=== PATIENT | female | born 1955 | race Caucasian/White ===

== ENCOUNTER → 2020-11-28 13:28 | Outpatient (CLI) | payer MEDICARE, OTHER, SELFPAY | PROVIDERS: PCP Family Medicine; Visit Provider Nurse Practitioner | DX: N34.3 Urethral syndrome, unspecified (principal) | CPT/HCPCS: 87086 ==

== ENCOUNTER 2020-11-28 14:19 | Emergency (ER) | payer MEDICARE, OTHER, SELFPAY ==
[2020-11-28 14:28] VITALS: BP 139/78; PULSE 89; RESP 22; TEMP 37.2; O2SAT 97
--- NOTE | 2020-11-28 15:02 | DI.CT.S_ITS ---
PROCEDURE: CT ABDOMEN PELVIS W CON INDICATIONS: Left-sided abdominal pain eval for diverticulitis TECHNIQUE: After the administration of intravenous contrast, 5 mm thick sections acquired from the diaphragm to the symphysis. 5 mm coronal and sagittal reformats were acquired. For radiation dose reduction, the following was used: automated exposure control, adjustment of mA and/or kV according to patient size. COMPARISON: None. FINDINGS: Image quality: Excellent. ABDOMEN: Lung bases: Lung bases are clear. Heart size is normal. Solid organs: Liver is normal in size and enhancement. Gallbladder appears normal. Biliary system is non dilated. Pancreas enhances normally. Spleen is normal in size and enhancement. No adrenal nodules. Kidneys demonstrate normal size and enhancement, without hydronephrosis. Peritoneum and bowel: Bowel loops demonstrate normal wall thickness and caliber. No free fluid or air. Nodes and vessels: No retroperitoneal or mesenteric adenopathy by size criteria. Aorta and inferior vena cava are normal in size. Miscellaneous: No ventral hernias. PELVIS: Genitourinary: Bladder wall thickness is normal. Miscellaneous: No inguinal hernias or adenopathy. Bones: No suspicious bony lesions. No vertebral body compression fractures. IMPRESSION: Source of left-sided asymmetric pain is not identified. An area of diverticulitis or colitis is not found. No abnormal free fluid is seen throughout the peritoneal space. No acute disease is found. Dictated by: Nando Coates M.D. on 11/28/2020 at 16:41 Approved by: Nando Coates M.D. on 11/28/2020 at 16:43
--- NOTE | 2020-11-28 15:13 | ED_ITS ---
HPI - General Adult General Chief complaint: Abdominal Pain Stated complaint: TENDERNESS LEFT SIDE Time Seen by Provider: 11/28/20 15:01 Source: patient Mode of arrival: Ambulatory Limitations: no limitations History of Present Illness HPI narrative: Patient is a 65-year-old female who stated that she does have a history of diverticulosis. This was diagnosed off of a colonoscopy in 2019. She states that over the past couple years she has had small intermittent episodes of left-sided abdominal pain that have all resolved on their own. She has another episode of that today which started approximately 3 days ago. No urinary symptoms. No diarrhea constipation. No nausea vomiting. No fevers. She went to the walk-in clinic and after their evaluation they were concerned about diverticulitis. According to that provider they offered to treat with antibiotics with the presumed diagnosis of diverticulitis however the patient did not want antibiotics without a confirmed diagnosis. She was sent here to the emergency department for a CT scan. Related Data Allergies Allergy/AdvReac Type Severity Reaction Status Date / Time Sulfa (Sulfonamide Allergy Mild Other Verified 11/28/20 13:46 Antibiotics) Review of Systems Constitutional Constitutional: Denies fever(s) Cardiovascular Cardiovascular: Denies chest pain and Denies dyspnea Respiratory Respiratory: Denies dyspnea Gastrointestinal Gastrointestinal: Reports abdominal pain, Denies change in bowel habits, Denies nausea and Denies vomiting Genitourinary Genitourinary: Denies dysuria Genitourinary: Denies dysuria Musculoskeletal Musculoskeletal: Denies arthralgias and Denies myalgias Integumentary/Breasts Skin/Breast: Denies rash Neurologic Neurologic: Denies behavioral changes Psychiatric Psychiatric: Denies behavioral changes Hematologic/Lymphatic On Anticoagulants: No Allergic/Immunologic Allergic/Immunologic: Denies urticaria Patient History Medical History Back pain (~2008) Chicken pox (~1963) Difficulty swallowing (~2006) Eczema Glaucoma Hemorrhoid (~1980) History of UTI (~1975) Measles Painful menstrual periods Positive colorectal cancer screening using Cologuard test Right arm fracture (~2015) Rubella Sciatica Thumb pain (~2015) Tinnitus Vertigo Vision disorder White coat syndrome without hypertension (~1996) Surgical History Anesthesia History of appendectomy History of section (~1980) History of tonsillectomy and adenoidectomy Family History Father Age: 92 Myeloma Cancer History of heart disease Hypertension Hyperlipidemia TIA (transient ischemic attack) Mother PSP (progressive supranuclear palsy) Osteoporosis Hip fracture Brother Hyperlipidemia Brother Hyperlipidemia Grandmother No problems noted. Grandfather No problems noted. Grandmother Dementia Alzheimer's disease Social History marital status: number of children: 2 household members: spouse lives independently: Yes housing: house pets and animals: No education level: master's degree occupational status: previously employed (teacher) Smoking Status: Never smoker alcohol intake: current (once in a blue moom) substance use type: does not use during the past year weight has: remained stable well-balanced diet: daily or most days Type(s) of exercise: walking, weight lifting and yoga Smoking Status: Never smoker Exam Initial Vital Signs Initial Vital Signs: Vital Signs Temperature 98.9 F 11/28/20 14:28 Pulse Rate 89 11/28/20 14:28 Respiratory Rate 22 11/28/20 14:28 Blood Pressure 139/78 11/28/20 14:28 Pulse Oximetry 97 11/28/20 14:28 Const General: cooperative, comfortable and well developed Limitations: mental status not altered HENMT Head: normal to inspection and normocephalic Resp Effort & Inspection: normal respiratory effort Cardio Rate: regular rate GI Inspection: non-distended Skin Lesions: no lesions Rashes: no rashes Neuro General: patient alert and patient awake Cognition: normal cognition Speech: speech normal Extrem General: capillary refill normal Psych Appearance: grossly normal and well kempt Course Orders Ordered: ED Orders 11/28/20 15:02 CT abdomen pelvis w con Stat 11/28/20 15:21 Complete Blood Count AUTO DIFF Stat Comprehensive Metabolic Panel Stat Lipase Stat Vital Signs Vital signs: Vital Signs - 8 hr 11/28/20 14:28 11/28/20 17:15 Temperature 98.9 F Pulse Rate 89 89 Respiratory Rate 22 16 Blood Pressure 139/78 153/84 H Pulse Oximetry 97 99 Medical Decision Making Medical Records Medical records reviewed: Yes I reviewed the patient's medical records. Lab Data Lab results reviewed: Yes I reviewed the patient's lab results. Result diagrams: 11/28/20 15:21 11/28/20 15:21 Labs: Lab Results 11/28/20 11/28/20 Range/Units 15:21 15:21 WBC 15.9 H (4.5-11.0) X10^3/uL RBC 4.32 (4.0-5.2) X10^6/uL Hgb 13.6 (12.0-16.0) g/dL Hct 40.0 (36-46) % MCV 92.6 (80-100) fL MCH 31.5 (26-34) PG MCHC 34.0 (30-36) % RDW 13.0 (11.6-14.8) % Plt Count 221 (150-400) X10^3/uL Neut % (Auto) 90.7 H (50-75) % Lymph % (Auto) 2.9 L (25-40) % [place] % (Auto) 6.3 (3-14) % Eos % (Auto) 0.0 L (2-4) % Baso % (Auto) 0.1 (0-2) % Neut # (Auto) 36029 H (6321-0570) /uL Lymph # (Auto) 500 L (7183-4027) /uL [place] # (Auto) 1000 H (0-900) /uL Eos # (Auto) 0 (0-450) /uL Baso # (Auto) 0 (0-100) /uL Sodium 129 L (137-145) mmol/L Potassium 3.8 (3.4-5.1) mmol/L Chloride 99 (98-107) mmol/L Carbon Dioxide 24 (22-32) mmol/L BUN 13 (7-17) mg/dL Creatinine 0.81 (0.52-1.04) mg/dL Estimated GFR > 60.0 (>60) mL/min BUN/Creatinine Ratio 16.0 (6-22) Glucose 125 H (80-110) mg/dL Calcium 9.7 (8.4-10.2) mg/dL Total Bilirubin 0.7 (0.2-1.3) mg/dL AST 29 (14-36) IU/L ALT 19 (<35) IU/L Alkaline Phosphatase 92 (38-126) U/L Total Protein 7.1 (6.3-8.2) g/dL Albumin 4.2 (3.5-5.0) g/dL Globulin 2.9 (1.7-4.1) g/dL Albumin/Globulin Ratio 1.4 (1.0-2.8) Lipase 46 (23-300) U/L Imaging Data CT scan - abdomen/pelvis: Radiologist's Impression: [address] [id number] Scan ReportSigned Patient: Aracelis Carballo KMR#: [id number]: 4Acct:[id number]/Sex: 65 / FDate of Service: 11/28/20Loc: EDAccession Number: [id number] Procedure: CT abdomen pelvis w con Ordering Provider: Jorge Magallon D.O. PROCEDURE: CT ABDOMEN PELVIS W CON INDICATIONS: Left-sided abdominal pain eval for diverticulitis TECHNIQUE: After the administration of intravenous contrast, 5 mm thick sections acquired from the diaphragm to the symphysis. 5 mm coronal and sagittal reformats were acquired. For radiation dose reduction, the following was used: automated exposure control, adjustment of mA and/or kV according to patient size. COMPARISON: None. FINDINGS: Image quality: Excellent. ABDOMEN: Lung bases: Lung bases are clear. Heart size is normal. Solid organs: Liver is normal in size and enhancement. Gallbladder appears normal. Biliary system is non dilated. Pancreas enhances normally. Spleen is normal in size and enhancement. No adrenal nodules. Kidneys demonstrate normal size and enhancement, without hydronephrosis. Peritoneum and bowel: Bowel loops demonstrate normal wall thickness and caliber. No free fluid or air. Nodes and vessels: No retroperitoneal or mesenteric adenopathy by size criteria. Aorta and inferior vena cava are normal in size. Miscellaneous: No ventral hernias. PELVIS: Genitourinary: Bladder wall thickness is normal. Miscellaneous: No inguinal hernias or adenopathy. Bones: No suspicious bony lesions. No vertebral body compression fractures. IMPRESSION: Source of left-sided asymmetric pain is not identified. An area of diverticulitis or colitis is not found. No abnormal free fluid is seen throughout the peritoneal space. No acute disease is found. Dictated by: Nando Coates M.D. on 11/28/2020 at 16:41 Approved by: Nando Coates M.D. on 11/28/2020 at 16:43 MDM Narrative Medical decision making narrative: Patient is afebrile. Urinalysis from the walk-in clinic is unremarkable. She does have a leukocytosis however no signs of an infection. She does not have any indication for urinary tract infection. Her CT scan is not consistent with diverticulitis or other intra-abdominal pathology. She has no skin changes concerning for a viral infection or bacterial infection. She has no cough. No shortness of breath. Low suspicion for pneumonia. Also has no upper respiratory tract infection like symptoms. Had a long discussion with her regarding the symptoms. We acknowledge that she does have leukocytosis however we will hold on any antibiotics for now. She expressed understanding and agreement with this. I did discuss the CT scan with her and she expressed understanding that there was no signs of diverticulitis. She was given return precautions and follow-up instructions. She expressed understanding and agreement. Discharge Plan Departure Patient Disposition: Home Clinical Impression: Abdominal pain, Leukocytosis Instructions: DI for Abdominal Pain-Adult Activity Restrictions/Additional Instructions: The CT scan of your abdomen and pelvis today is unremarkable for any surgical or infectious issues. This includes issues with your bowel and bladder. You do have an elevated white blood cell count however we do not have any specific sources of an infection. I feel we should hold on any antibiotics for now. Contact your primary provider for follow-up. Return to the emergency department for any new or worsening symptoms Referrals: Angeles Mcarthur DO [Primary Care Provider] -
[2020-11-28 15:43] LABS: Add Manual Diff / Slide Review NO; Basophils Absolute Auto 0 /uL (0-100); Basophils Percent Auto 0.1 % (0-2); Eosinophils Absolute Auto 0 /uL (0-450); Hemoglobin 13.6 g/dL (12.0-16.0); Lymphocytes Absolute Auto 500 /uL (1100-4500); Lymphocytes Percent Auto 2.9 % (25-40); Mean Corpuscular Hemoglobin 31.5 PG (26-34); Mean Corpuscular Volume 92.6 fL (80-100); Monocytes Absolute Auto 1000 /uL (0-900); Monocytes Percent Auto 6.3 % (3-14); Neutrophils Absolute Auto 14400 /uL (1500-7000); Neutrophils Percent Auto 90.7 % (50-75); Platelet Count 221 X10^3/uL (150-400); Red Blood Cell Count 4.32 X10^6/uL (4.0-5.2); White Blood Cell Count 15.9 X10^3/uL (4.5-11.0)
[2020-11-28 15:56] LABS: Alanine Aminotransferase 19 IU/L (<35); Albumin 4.2 g/dL (3.5-5.0); Albumin Globulin Ratio 1.4 (1.0-2.8); Alkaline Phosphatase 92 U/L (38-126); Aspartate Aminotransferase 29 IU/L (14-36); Bilirubin Total 0.7 mg/dL (0.2-1.3); Blood Urea Nitrogen 13 mg/dL (7-17); Calcium 9.7 mg/dL (8.4-10.2); Carbon Dioxide 24 mmol/L (22-32); Chloride 99 mmol/L (98-107); Estimated Glomerular Filt Rate > 60.0 mL/min (>60); Globulin 2.9 g/dL (1.7-4.1); Glucose 125 mg/dL (80-110); HEMOLYSIS < 15 (0-50); Lipase 46 U/L (23-300); Potassium 3.8 mmol/L (3.4-5.1); Sodium 129 mmol/L (137-145); Total Protein 7.1 g/dL (6.3-8.2)
[2020-11-28 17:15] VITALS: BP 153/84; PULSE 89; RESP 16; O2SAT 99
== END 2020-11-28 17:15 | disposition home or self-care (01) ==
PROVIDERS: Emergency Provider Emergency Medicine; PCP Family Medicine
DX: R10.9 Unspecified abdominal pain (principal); D72.829 Elevated white blood cell count, unspecified; Z87.19 Personal history of other diseases of the digestive system; N34.3 Urethral syndrome, unspecified
CPT/HCPCS: 36415; 74177; 80053; 83690; 85025; 87086; 99284

== ENCOUNTER → 2020-12-01 12:02 | Outpatient (CLI) | payer MEDICARE, OTHER, SELFPAY | PROVIDERS: PCP Family Medicine; Referring Provider Family Medicine; Visit Provider Family Medicine | DX: R10.9 Unspecified abdominal pain (principal) | CPT/HCPCS: 87086 ==

== ENCOUNTER → 2021-01-29 07:06 | Outpatient (CLI) | payer MEDICARE, OTHER, SELFPAY ==
[2021-01-29 08:33] LABS: Alanine Aminotransferase 16 IU/L (<35); Albumin 4.2 g/dL (3.5-5.0); Albumin Globulin Ratio 1.6 (1.0-2.8); Alkaline Phosphatase 90 U/L (38-126); Aspartate Aminotransferase 26 IU/L (14-36); BUN Creatinine Ratio 20.7 (6-22); Bilirubin Total 0.3 mg/dL (0.2-1.3); Blood Urea Nitrogen 17 mg/dL (7-17); Calcium 10.5 mg/dL (8.4-10.2); Carbon Dioxide 27 mmol/L (22-32); Chloride 102 mmol/L (98-107); Cholesterol 185 mg/dL (140-199); Estimated Glomerular Filt Rate > 60.0 mL/min (>60); Globulin 2.7 g/dL (1.7-4.1); Glucose 100 mg/dL (80-110); HDL Cholesterol 89 mg/dL (40-60); HEMOLYSIS < 15 (0-50); LDL Cholesterol Calculated 82 mg/dL (<100); Potassium 4.3 mmol/L (3.4-5.1); Sodium 135 mmol/L (137-145); Total Protein 6.9 g/dL (6.3-8.2); Triglycerides 71 mg/dL (35-150)
[2021-01-30 16:55] LABS: Vitamin D 25 Hydroxy (D3) 35.3 ng/mL (30.0-100.0)
== END ==
PROVIDERS: PCP Family Medicine; Referring Provider Family Medicine; Visit Provider Family Medicine
DX: Z13.220 Encounter for screening for lipoid disorders (principal); Z13.1 Encounter for screening for diabetes mellitus; M85.80 Other specified disorders of bone density and structure, unspecified site; I10 Essential (primary) hypertension
CPT/HCPCS: 36415; 80053; 80061; 82306

== ENCOUNTER → 2021-01-31 15:13 | Outpatient (CLI) | payer MEDICARE, OTHER, SELFPAY ==
[2021-01-31 16:03] LABS: Add Manual Diff / Slide Review NO; Basophils Absolute Auto 100 /uL (0-100); Basophils Percent Auto 0.9 % (0-2); Eosinophils Absolute Auto 200 /uL (0-450); Eosinophils Percent Auto 2.8 % (2-4); Hematocrit 40.1 % (36-46); Hemoglobin 13.6 g/dL (12.0-16.0); Lymphocytes Absolute Auto 2000 /uL (1100-4500); Lymphocytes Percent Auto 23.7 % (25-40); Mean Corpuscular HGB Conc 33.9 % (30-36); Mean Corpuscular Hemoglobin 31.5 PG (26-34); Mean Corpuscular Volume 92.9 fL (80-100); Monocytes Absolute Auto 900 /uL (0-900); Monocytes Percent Auto 10.3 % (3-14); Neutrophils Absolute Auto 5300 /uL (1500-7000); Neutrophils Percent Auto 62.3 % (50-75); Platelet Count 229 X10^3/uL (150-400); Red Blood Cell Count 4.31 X10^6/uL (4.0-5.2); Red Cell Distribution Width 13.7 % (11.6-14.8); White Blood Cell Count 8.6 X10^3/uL (4.5-11.0)
[2021-02-01 07:56] LABS: Calcium 9.6 mg/dL (8.7-10.3); Parathyroid Hormone, Intact 62 pg/mL (15-65)
== END ==
PROVIDERS: PCP Family Medicine; Referring Provider Family Medicine; Visit Provider Family Medicine
DX: E83.52 Hypercalcemia (principal); D72.829 Elevated white blood cell count, unspecified
CPT/HCPCS: 36415; 82310; 83970; 85025

== ENCOUNTER → 2021-02-21 08:27 | Outpatient (CLI) | payer MEDICARE, OTHER, SELFPAY ==
--- NOTE | 2021-02-21 08:29 | DI.MG.S_ITS ---
BILATERAL DIGITAL SCREENING MAMMOGRAM 3D/2D WITH CAD: 02/21/2021 CLINICAL: Routine screening. Comparison is made to exams dated: 05/19/2019 mammogram, 04/03/2017 mammogram, and 10/04/2014 mammogram - [facility]. There are scattered fibroglandular elements in both breasts. Current study was also evaluated with a Computer Aided Detection (CAD) system. No significant masses, calcifications, or other findings are seen in either breast. There has been no significant interval change. IMPRESSION: NEGATIVE There is no mammographic evidence of malignancy. A 1 year screening mammogram is recommended. This exam was interpreted at Station ID: [id number]. NOTE: For mammograms, a report in lay terms will be sent to the patient. Approximately 15% of breast malignancies will not be visualized mammographically. In the management of a palpable breast mass, a negative mammogram must not discourage biopsy of a clinically suspicious lesion. Electronically Signed By: Panda hercules/sapna:02/21/2021 10:28:51 letter sent: Normal Exam ACR BI-RADS Category 1: Negative 3341F
== END ==
PROVIDERS: PCP Family Medicine; Referring Provider Family Medicine; Visit Provider Family Medicine
DX: Z12.31 Encounter for screening mammogram for malignant neoplasm of breast (principal)
CPT/HCPCS: 77063; 77067

== ENCOUNTER → 2021-08-27 09:40 | Outpatient (CLI) | payer MEDICARE, OTHER, SELFPAY | PROVIDERS: PCP Family Medicine; Referring Provider Family Medicine; Visit Provider Family Medicine | DX: Z78.0 Asymptomatic menopausal state (principal); M85.852 Other specified disorders of bone density and structure, left thigh; Z82.62 Family history of osteoporosis | CPT/HCPCS: 77080 ==

== ENCOUNTER → 2022-02-20 07:41 | Outpatient (CLI) | payer MEDICARE, OTHER, SELFPAY ==
[2022-02-20 08:33] LABS: Add Manual Diff / Slide Review NO; Basophils Absolute Auto 100 /uL (0-100); Eosinophils Absolute Auto 200 /uL (0-450); Eosinophils Percent Auto 4.3 % (2-4); Hematocrit 40.3 % (36-46); Hemoglobin 13.6 g/dL (12.0-16.0); Lymphocytes Absolute Auto 1700 /uL (1100-4500); Lymphocytes Percent Auto 30.2 % (25-40); Mean Corpuscular HGB Conc 33.8 % (30-36); Mean Corpuscular Hemoglobin 30.5 PG (26-34); Mean Corpuscular Volume 90.3 fL (80-100); Monocytes Absolute Auto 600 /uL (0-900); Monocytes Percent Auto 11.8 % (3-14); Neutrophils Absolute Auto 2900 /uL (1500-7000); Neutrophils Percent Auto 52.7 % (50-75); Platelet Count 216 X10^3/uL (150-400); Red Blood Cell Count 4.47 X10^6/uL (4.0-5.2); Red Cell Distribution Width 14.1 % (11.6-14.8); White Blood Cell Count 5.5 X10^3/uL (4.5-11.0)
[2022-02-20 09:21] LABS: Alanine Aminotransferase 17 IU/L (<35); Albumin 4.3 g/dL (3.5-5.0); Albumin Globulin Ratio 1.6 (1.0-2.8); Alkaline Phosphatase 89 U/L (38-126); Aspartate Aminotransferase 26 IU/L (14-36); BUN Creatinine Ratio 18.8 (6-22); Bilirubin Total 0.5 mg/dL (0.2-1.3); Blood Urea Nitrogen 16 mg/dL (7-17); Calcium 9.6 mg/dL (8.4-10.2); Carbon Dioxide 27 mmol/L (22-32); Chloride 103 mmol/L (98-107); Cholesterol 201 mg/dL (140-199); Estimated Glomerular Filt Rate > 60 mL/min (>60); Globulin 2.7 g/dL (1.7-4.1); Glucose 94 mg/dL (80-110); HDL Cholesterol 109 mg/dL (40-60); HEMOLYSIS < 15 (0-50); LDL Cholesterol Calculated 76 mg/dL (<100); Potassium 4.2 mmol/L (3.4-5.1); Sodium 136 mmol/L (137-145); Triglycerides 82 mg/dL (35-150)
[2022-02-20 10:25] LABS: Appearance Urine UA CLEAR; Bilirubin Urine UA NEGATIVE (NEGATIVE); Color Urine UA YELLOW; Glucose Urine UA NEGATIVE (Negative); Ketones Urine UA NEGATIVE (NEGATIVE); Leukocyte Esterase Urine UA NEGATIVE (NEGATIVE); Nitrite Urine UA NEGATIVE (Negative); Occult Blood Urine UA NEGATIVE (Negative); Protein Urine UA NEGATIVE (Negative); Urobilinogen Urine UA 0.2 E.U./dL (0.2)
[2022-02-20 10:32] LABS: pH Urine UA 7.5 (4.5-8.0)
[2022-02-20 10:48] LABS: Creatinine Urine Random 110.2 mg/dL
[2022-02-20 11:00] LABS: Microalbumin Urine Random < 0.6 mg/dL (0-1.6)
[2022-02-20 11:02] LABS: Bacteria Urine None Seen; Culture Indicated Urine Cult Not Indicated; RBC Urine None Seen (0-5/HPF); Squamous Epithelial Cell Urine 0-1 /HPF (0-5/HPF); WBC Urine None Seen (0-5/HPF)
== END ==
PROVIDERS: PCP Family Medicine; Referring Provider Family Medicine; Visit Provider Family Medicine
DX: I10 Essential (primary) hypertension (principal); E83.52 Hypercalcemia; R30.0 Dysuria; Z00.00 Encounter for general adult medical examination without abnormal findings; Z13.220 Encounter for screening for lipoid disorders; R03.0 Elevated blood-pressure reading, without diagnosis of hypertension
CPT/HCPCS: 36415; 80053; 80061; 81001; 82043; 82306; 82570; 85025

== ENCOUNTER → 2022-04-11 10:50 | Outpatient (CLI) | payer MEDICARE, OTHER, SELFPAY ==
--- NOTE | 2022-04-11 10:55 | DIET.CONS ---
Dietary Consultation Note Assessment: 67y F attending [address] visit for nutrition therapy to support osteopenia and HTN. Pt with osteopenia concerned because she has difficulty taking calcium supplements and eats a mostly plant based diet. Pt took my Osteoporosis nutrition class and desires individualized support. Pt cooks all homemade foods, no processed foods, little to no added sodium in diet. Pt is 15-45# over UBW which can influence HTN. Ht: 5'9 Wt: 165# BMI: 24.5 UBW: 120# until 40s then 150# does not tolerate calcium tablets Current Supplements: Vitamin D 2,000IU Cardiotone magnesium 200mg Occasional Supplements: AlgaeCal Per 2 capsules (4 daily) Vit C 25mg Vit D 800IU Calcium 360mg Mg 175mg [place] 1.5mg Vit K 50mcg Strontium 680mg Collagen Peptides Usual Day: 16oz water tea c milk (4x/d) B: 3/4 c oat groats- flax, prune, walnut or two, collagen, supps, 1/3c whole milk yogurt, blueberries L: broth based soup c chicken or fish and mix of starchy and non starchy veg. D: salad, cooked veg, small portion protein Sn: whole milk yogurt c fruit and 2-3 nuts Exercise: walking plus weights and pilates Nutrition Diagnosis: nutrition related knowledge deficit r/t diet to support osteopenia and HTN aeb pt presents with slow weight gain, HTN, pt brings several supplements and food log to visit, expresses being unsure on what is good plan, pt DEXA showing osteopenia. Interventions: 1. Discussed pt maintaining BMI 23 for good health, Losing 10# to support HTN but also not going lower to support bone health. 2. Reviewed supplements- pt to take 1,000IU Vitamin D, 2 AlgaeCal, occasional collagen peptides. 3. Reviewed pt diet record, no changes besides to count calories of usual B/L/D/Sn to aim for 1500 calories per day to support 10# weight loss. EER: 1200mg calcium daily from mix of food and supps, 2,000IU Vitamin D (between single nutrient and Algaecal), 1500kcals Monitoring/Evaluations: f/u prn Electronically Signed by: Lina Wolfe 04/11/22 10:55 Clinical Dietitian [address] [id number]
[2022-04-11 11:24] VITALS: BMI 24.5
== END ==
PROVIDERS: PCP Family Medicine; Referring Provider Family Medicine; Visit Provider Family Medicine
DX: M85.80 Other specified disorders of bone density and structure, unspecified site (principal); I10 Essential (primary) hypertension; Z68.24 Body mass index [BMI] 24.0-24.9, adult; Z71.3 Dietary counseling and surveillance
CPT/HCPCS: 97802

== ENCOUNTER → 2022-08-12 09:17 | Outpatient (CLI) | payer MEDICARE, OTHER, SELFPAY ==
[2022-08-12 09:42] LABS: COVID19 -Nasal RAPID Negative (Negative)
== END ==
PROVIDERS: PCP Family Medicine; Visit Provider Surgery
DX: Z20.822 Contact with and (suspected) exposure to COVID-19 (principal); Z01.812 Encounter for preprocedural laboratory examination
CPT/HCPCS: 87635; C9803

== ENCOUNTER 2022-08-13 06:37 | Day surgery (SDC) | payer MEDICARE, OTHER, SELFPAY ==
[2022-08-13] VITALS (7 sets, daily range): BP systolic 113–156; BP diastolic 67–94; PULSE 52–65; RESP 10–18; TEMP 36.3–36.4; O2SAT 95–99; BMI 24.3
--- NOTE | 2022-08-13 | PATH_ITS ---
[facility] Accession Number: [id number] . 01 Material submitted: . sigmoid colon - SIGMOID POLYP . 01 Diagnosis: Sigmoid Colon, Polyp, Biopsy: Polypoid granulation tissue consistent with inflammatory polyp. Negative for dysplasia and malignancy. MRV 08/16/2022 1021 Local . 01 Electronically signed: . Liliam Muñoz MD, Pathologist NPI- [id number] . 01 Gross description: . SIGMOID POLYP: Received in formalin is 1 fragment(s) of miller, soft tissue measuring 0.1 x 0.1 x 0.1 cm submitted entirely in 1 cassette(s) /CPE 08/14/2022 0730 Local . 01 Pathologist provided ICD-10: K63.5 . 01 CPT . 189829 Specimen Comment: A courtesy copy of this report has been sent to [phone] Performed at: 01 [facility] [address] [place] [address] [address] [facility], [place], [place] [id number] MD Osmar Santana MD Phone: [phone]
[2022-08-13] MEDS: LACTATED RINGERS 1,000 ML 200 ML IV (07:00)
--- NOTE | 2022-08-13 07:49 | PM.HP.1 ---
History of Present Illness History of Present Illness Date Patient Seen: 08/13/22 Time Patient Seen: 07:50 Chief complaint: [facility] Narrative: The patient presents for colorectal screening. She has a personal history of colonic polyps. Last colonoscopy in 2019 significant for benign polyps. No personal or family history of colon cancer. On further history denies any recent gastrointestinal symptoms. No nausea, vomiting, abdominal pain, loss of appetite, unexplained weight loss, change in bowel habits, diarrhea, constipation, melena, hematochezia, or bright red blood per rectum. Patient History Medical History Anxiety Back pain (~2008) Chicken pox (~1963) Difficulty swallowing (~2006) Diverticulosis (~2018) Eczema Essential hypertension Glaucoma Hemorrhoid (~1980) History of UTI (~1975) Hypercalcemia Lumbar degenerative disc disease Measles Painful menstrual periods Positive colorectal cancer screening using Cologuard test Right arm fracture (~2015) Rubella Sciatica Thumb pain (~2015) Tinnitus Vertigo Vision disorder White coat syndrome without hypertension (~1996) Surgical History Anesthesia History of appendectomy History of section (~1980) History of tonsillectomy and adenoidectomy Hx of colonoscopy with polypectomy (~07/2019) Family & Social History Family History Father Age: 94 Myeloma Cancer History of heart disease Hypertension Hyperlipidemia TIA (transient ischemic attack) Mother PSP (progressive supranuclear palsy) Osteoporosis Hip fracture Brother Hyperlipidemia Brother Hyperlipidemia Grandmother No problems noted. Grandfather No problems noted. Grandmother Dementia Alzheimer's disease Social History: household members spouse lives independently Yes Tobacco & Substance use: Smoking Status Never smoker alcohol intake former Substance Use Type does not use Meds Home Medications and Allergies Home Medications Medication Instructions Recorded Confirmed Type cardiotone 1 tab PO DAILY #30 tabs 09/24/21 08/13/22 Rx propranolol 10 mg tablet 10 mg PO TID anxiety 08/13/22 08/13/22 History Allergies Allergy/AdvReac Type Severity Reaction Status Date / Time Sulfa (Sulfonamide Allergy Mild Other Verified 08/13/22 07:02 Antibiotics) Exam Vital Signs (past 8 hours): - 08/13/22 07:10 Temperature 97.4 F L Pulse Rate 65 Respiratory Rate 14 Blood Pressure 156/94 H Pulse Oximetry 99 Oxygen Delivery Method Room Air Oxygen Delivery Method Room Air Narrative Exam Narrative: General adult woman alert oriented no acute distress Abdomen soft nontender nondistended Assessment & Plan Assessment and plan (1) Personal history of colonic polyps: Status: Acute Assessment & Plan narrative: The patient requires colorectal screening and colonoscopy is recommended. Technical details were discussed. Risks, benefits, alternatives explained. Risks including but not limited to myocardial infarction, aspiration, bleeding, pain, missed lesion, incomplete examination, need for further radiographic studies, colonic perforation, and need for major abdominal surgery were discussed. All questions were answered to their satisfaction, and they are in agreement with this plan. Time Spent With Patient Critical Care time: I spent a total of [] minutes of critical care time on this patient's care today; this time is exclusive of procedural time.
--- NOTE | 2022-08-13 08:17 | P.OP.COLON_ITS ---
Operative Date/Time/Diagnoses Date of procedure: 08/13/22 Time of procedure: 08:18 Pre-op diagnosis: Personal history of colonic polyps Post-op diagnosis: same Procedure & Clinicians Study performed: Colonoscopy and polypectomy Same procedure as scheduled: Yes Indications: Personal history of colonic polyps Surgeon: Guy Kenyon Procedure Notes Procedure in detail: Medications: Conscious sedation using 5 mg IV midazolam and 150 mcg IV of f entanyl The history and physical was performed/updated and the patient is ASA class is 2. The procedure was discussed in detail with the patient. Potential risks complications including infection, bleeding, missed diagnosis, perforation, need for surgery, and were explained. Their questions were answered and informed consent was obtained. Patient was brought to the procedure room and placed standard monitoring equipment. The patient's vital signs were monitored continuously throughout the entire procedure. Prior to starting time-out was performed. The patient was placed in the left lateral recumbent position. Procedural sedation was administered. Examination began with a thorough inspection of the perianal area there was no evidence of fissures, fistulae, external hemorrhoids or cutaneous malignancy. The colonoscopy scope was then placed into the anal canal and was advanced to the cecum, which was identified by the ileocecal valve, the appendiceal orifice and the confluence of the taenia. The scope was then slowly withdrawn examining colon thoroughly in all directions, irrigating it of any residual stool. FINDINGS 1. Sigmoid moderate diverticulosis 2. Sigmoid-3 mm polyp removed with biopsy forceps 3. Internal hemorrhoids The patient tolerated the procedure well. They will be discharged once criteria are met. The prep was of good/excellent quality. The withdrawl time was 10 minutes. The sedation time was 21 minutes. Specimen(s): other (Sigmoid polyp) Complications: none Impression: Colonic polyp Post-procedure Recommendations: Will call with biopsy results Disposition: same day surgery
[2022-08-13] MEDS: MIDAZOLAM 5 MG/5 ML VIAL IV (08:21)
[2022-08-13] MEDS: fentaNYL 100 MCG/2 ML INJ IV (08:22)
== END 2022-08-13 09:16 | disposition home or self-care (01) ==
PROVIDERS: PCP Family Medicine; Referring Provider Surgery; Visit Provider Surgery
PROC: 0DJD8ZZ Inspection of Lower Intestinal Tract, Via Natural or Artificial Opening Endoscopic (ICD-10-PCS; CPT 45378; principal; 2022-08-13 07:45)
DX: Z12.11 Encounter for screening for malignant neoplasm of colon (principal); Z86.010 Personal history of colon polyps; K64.9 Unspecified hemorrhoids; K57.30 Diverticulosis of large intestine without perforation or abscess without bleeding; K63.5 Polyp of colon
CPT/HCPCS: 45380; 99152; J2250; J3010

== ENCOUNTER → 2023-02-19 08:24 | Outpatient (CLI) | payer MEDICARE, OTHER, SELFPAY ==
[2023-02-19 10:13] LABS: Alanine Aminotransferase 21 IU/L (<35); Albumin 4.2 g/dL (3.5-5.0); Albumin Globulin Ratio 1.4 (1.0-2.8); Alkaline Phosphatase 88 U/L (38-126); Aspartate Aminotransferase 25 IU/L (14-36); BUN Creatinine Ratio 17.4 (6-22); Bilirubin Total 0.7 mg/dL (0.2-1.3); Blood Urea Nitrogen 15 mg/dL (7-17); Calcium 9.7 mg/dL (8.4-10.2); Carbon Dioxide 30 mmol/L (22-32); Chloride 98 mmol/L (98-107); Cholesterol 204 mg/dL (140-199); Estimated Glomerular Filt Rate > 60 mL/min (>60); Globulin 2.9 g/dL (1.7-4.1); Glucose 89 mg/dL (80-110); HDL Cholesterol 98 mg/dL (40-60); HEMOLYSIS < 15 (0-50); LDL Cholesterol Calculated 93 mg/dL (<100); Potassium 4.2 mmol/L (3.4-5.1); Sodium 133 mmol/L (137-145); Total Protein 7.1 g/dL (6.3-8.2); Triglycerides 66 mg/dL (35-150)
[2023-02-19 10:18] LABS: Vitamin D 25 Hydroxy (D3) 41.8 ng/mL (30.0-100.0)
== END ==
PROVIDERS: PCP Family Medicine; Referring Provider Family Medicine; Visit Provider Family Medicine
DX: E78.5 Hyperlipidemia, unspecified (principal); E83.52 Hypercalcemia; M85.80 Other specified disorders of bone density and structure, unspecified site; R03.0 Elevated blood-pressure reading, without diagnosis of hypertension; E55.9 Vitamin D deficiency, unspecified
CPT/HCPCS: 36415; 80053; 80061; 82306

== ENCOUNTER → 2023-02-21 09:17 | Outpatient (CLI) | payer MEDICARE, OTHER, SELFPAY ==
[2023-02-21 11:19] LABS: Creatinine Urine Random 32.6 mg/dL
[2023-02-21 11:23] LABS: Microalbumin Urine Random < 0.6 mg/dL (0-1.6)
== END ==
PROVIDERS: PCP Family Medicine; Referring Provider Family Medicine; Visit Provider Family Medicine
DX: I10 Essential (primary) hypertension (principal)
CPT/HCPCS: 82043; 82570

== ENCOUNTER → 2023-08-02 07:56 | Outpatient (CLI) | payer MEDICARE, OTHER, SELFPAY ==
[2023-08-02 08:38] LABS: Alanine Aminotransferase 17 IU/L (<35); Albumin 4.1 g/dL (3.5-5.0); Albumin Globulin Ratio 1.2 (1.0-2.8); Alkaline Phosphatase 83 U/L (38-126); Aspartate Aminotransferase 23 IU/L (14-36); BUN Creatinine Ratio 16.7 (6-22); Bilirubin Total 0.4 mg/dL (0.2-1.3); Blood Urea Nitrogen 15 mg/dL (7-17); Calcium 9.9 mg/dL (8.4-10.2); Carbon Dioxide 26 mmol/L (22-32); Chloride 99 mmol/L (98-107); Estimated Glomerular Filt Rate > 60 mL/min (>60); Globulin 3.3 g/dL (1.7-4.1); Glucose 99 mg/dL (80-110); HEMOLYSIS < 15 (0-50); Potassium 4.1 mmol/L (3.4-5.1); Sodium 134 mmol/L (137-145); Total Protein 7.4 g/dL (6.3-8.2)
[2023-08-02 08:48] LABS: Appearance Urine UA CLEAR; Bilirubin Urine UA NEGATIVE (NEGATIVE); Color Urine UA YELLOW; Glucose Urine UA NEGATIVE (Negative); Ketones Urine UA NEGATIVE (NEGATIVE); Leukocyte Esterase Urine UA NEGATIVE (NEGATIVE); Nitrite Urine UA NEGATIVE (Negative); Occult Blood Urine UA NEGATIVE (Negative); Protein Urine UA NEGATIVE (Negative); Urobilinogen Urine UA 0.2 E.U./dL (0.2)
[2023-08-02 08:55] LABS: Vitamin D 25 Hydroxy (D3) 36.2 ng/mL (30.0-100.0)
[2023-08-02 08:57] LABS: Amorphous Sediment Urine 1+; Bacteria Urine None Seen; Culture Indicated Urine Cult Not Indicated; RBC Urine 0-1/HPF (0-5/HPF); Squamous Epithelial Cell Urine 0-1 /HPF (0-5/HPF); WBC Urine 0-1/HPF (0-5/HPF)
[2023-08-02 09:06] LABS: Creatinine Urine Random 168.3 mg/dL
[2023-08-02 09:11] LABS: Microalbumi Creatinin Ratio Ur 4.7 ug/mg CR (<30); Microalbumin Urine Random 0.8 mg/dL (0-1.6)
== END ==
PROVIDERS: PCP Family Medicine; Referring Provider Family Medicine; Visit Provider Family Medicine
DX: E55.9 Vitamin D deficiency, unspecified (principal); E87.1 Hypo-osmolality and hyponatremia; R30.0 Dysuria; I10 Essential (primary) hypertension
CPT/HCPCS: 36415; 80053; 81001; 82043; 82306; 82570

== ENCOUNTER → 2023-12-10 07:57 | Outpatient (CLI) | payer MEDICARE, OTHER, SELFPAY ==
--- NOTE | 2023-12-10 07:58 | DI.MG.S_ITS ---
BILATERAL DIGITAL SCREENING MAMMOGRAM 3D/2D WITH CAD: 12/10/2023 CLINICAL: Routine screening. Comparison is made to exams dated: 05/19/2019 mammogram, 04/03/2017 mammogram - [facility], and 02/21/2021 mammogram - [facility]. Both breasts are heterogeneously dense, which may obscure small masses (category c / 51-75% glandular tissue). Current study was also evaluated with a Computer Aided Detection (CAD) system. No significant masses, calcifications, or other findings are seen in either breast. There has been no significant interval change. IMPRESSION: NEGATIVE There is no mammographic evidence of malignancy. A 1 year screening mammogram is recommended. Based on the Tyrer Cuzick model (a risk assessment model) the patient's lifetime risk is 7.1% and her 10 year risk is 4.2%. According to the ACR, ACS, and NCCN guidelines, an annual breast MRI exam along with mammogram is recommended if the patient's lifetime risk is 20% or greater. This exam was interpreted at Station ID: [id number]. NOTE: For mammograms, a report in lay terms will be sent to the patient. Approximately 15% of breast malignancies will not be visualized mammographically. In the management of a palpable breast mass, a negative mammogram must not discourage biopsy of a clinically suspicious lesion. Electronically Signed By: Roddy guevara/sapna:12/10/2023 13:33:17 letter sent: Normal Exam ACR BI-RADS Category 1: Negative [id number]
== END ==
LOC: MAMMO 07:58
PROVIDERS: PCP Family Medicine; Referring Provider Family Medicine; Visit Provider Family Medicine
DX: Z12.31 Encounter for screening mammogram for malignant neoplasm of breast (principal); R92.333 Mammographic heterogeneous density, bilateral breasts
CPT/HCPCS: 77063; 77067

== ENCOUNTER → 2023-12-18 10:15 | Outpatient (CLI) | payer MEDICARE, OTHER, SELFPAY ==
--- NOTE | 2023-12-18 10:16 | DI.RAD.S_ITS ---
Bone Density Report Name: JULES CAMPBELL Age: 68 Sex: Female Ethnicity: White Date of : 1955 Indication: osteopenia; Referring Provider: CHAU VILLARREAL Study: Bone densitometry was performed. Exam Date: December 18, 2023 Accession number: [id number] Bone Density: Region BMD T-score Z-score Classification AP Spine(L1-L4) 0.901 -1.3 0.8 Osteopenia Femoral Neck (Left) 0.603 -2.2 -0.4 Osteopenia Total Hip (Left) 0.640 -2.5 -1.0 Osteoporosis Femoral Neck (Right) 0.696 -1.4 0.4 Osteopenia Total Hip (Right) 0.680 -2.1 -0.7 Osteopenia Total Hip Mean 0.660 -2.3 -0.9 Osteopenia World Health Organization criteria for BMD impression classify patients as: Normal (T-score at or above -1.0), Osteopenia (T-score between -1.0 and -2.5), or Osteoporosis (T-score at or below -2.5). 10-year Fracture Risk: FRAX not reported because: Some T-score for Spine Total or Hip Total or Femoral Neck at or below -2.5 Previous Exams: -- Region Exam Age BMD T-score BMD Change BMD Change Date g/cm2 vs Baseline vs Previous -- AP Spine (L1-L4) 12/18/2023 68 0.901 -1.3 -0.008 (-0.8%)# -0.008 (-0.8%)# 08/27/2021 66 0.908 -1.3 Total Hip(Left) 12/18/2023 68 0.640 -2.5 -0.020 (-3.1%)# -0.020 (-3.1%)# 08/27/2021 66 0.660 -2.3 Total Hip(Right) 12/18/2023 68 0.680 -2.1 0.017 (2.6%)# 0.017 (2.6%)# 08/27/2021 66 0.663 -2.3 -- *Denotes significance at 95% confidence level, LSC for AP Spine = 0.022 g/cm2, LSC for Total Hip = 0.027 g/cm2 # Denotes dissimilar scan types or analysis methods Impression: The patient has osteoporosis, based on the Left Total Hip T-score. No significant bone loss was observed. Discussion: INCREASED RISK OF FRACTURE. BONE DENSITY IS UNDESIRABLY LOW AT ONE OR MORE SKELETAL SITES, CONSISTENT WITH POSTMENOPAUSAL OSTEOPOROSIS. This patient's lowest T-score meets the World Health Organization's (WHO) criteria for osteoporosis at one or more sites (T-score -2.5 or below). In untreated patients, the risk of osteoporotic fracture increases approximately two-fold for each 1.0 SD decrease in T-score. Low bone density is not the only risk factor for fracture; also consider factors such as patient's age, frailty or poor health, risk of falling, risk of injury, previous osteoporotic fracture, family history of osteoporosis, cigarette smoking, low body weight, etc. Not everyone with low bone mineral density has osteoporosis; osteomalacia and other metabolic bone disorders should also be considered. Patients who have osteoporosis should be evaluated for specific diseases and conditions (secondary causes) that may cause or contribute to bone loss. The [place] [employer]ocrinologists (AACE) and National Osteoporosis Foundation (NOF) recommend pharmacologic intervention for all postmenopausal women whose T-score is in this range. The patient should follow a healthful lifestyle (good nutrition with adequate calcium and vitamin D, and appropriate weight-bearing exercise). Follow-Up: Consider a repeat BMD and Vertebral Fracture Assessment (VFA) exam in 2 years or sooner if medically necessary, to reassess this patient's status. Reported by: ALVARADO GONZALES M.D. on 12/18/2023 10:40:00 AM.
== END ==
LOC: RAD 10:16
PROVIDERS: PCP Family Medicine; Referring Provider Family Medicine; Visit Provider Family Medicine
DX: M81.0 Age-related osteoporosis without current pathological fracture (principal)
CPT/HCPCS: 77080

== ENCOUNTER → 2023-12-24 16:44 | Outpatient (CLI) | payer MEDICARE, OTHER, SELFPAY ==
--- NOTE | 2023-12-24 16:46 | DI.RAD.S_ITS ---
PROCEDURE: XR SHOULDER RT MIN 2V INDICATIONS: worsening R shoulder pain, eval arthritis/spurs TECHNIQUE: 3 views of the shoulder were acquired. COMPARISON: None. FINDINGS: Bones: No fractures or dislocations. No suspicious bony lesions. Visualized ribs appear intact. Severe glenohumeral joint space narrowing with inferior marginal osteophyte Soft tissues: No suspicious soft tissue calcifications. IMPRESSION: Severe glenohumeral osteoarthritis Approved by: Adriel Alatorre M.D. on 12/24/2023 at 19:11
== END ==
PROVIDERS: PCP Family Medicine; Referring Provider Family Medicine; Visit Provider Family Medicine
DX: M19.011 Primary osteoarthritis, right shoulder (principal); M25.511 Pain in right shoulder; G89.29 Other chronic pain
CPT/HCPCS: 73030

== ENCOUNTER → 2024-04-23 07:40 | Outpatient (CLI) | payer MEDICARE, OTHER, SELFPAY ==
[2024-04-23 08:37] LABS: Add Manual Diff / Slide Review NO; Basophils Absolute Auto 100 /uL (0-100); Basophils Percent Auto 0.9 % (0-2); Eosinophils Absolute Auto 200 /uL (0-450); Eosinophils Percent Auto 3.3 % (2-4); Lymphocytes Absolute Auto 1600 /uL (1100-4500); Mean Corpuscular HGB Conc 33.3 % (30-36); Mean Corpuscular Hemoglobin 28.6 PG (26-34); Mean Corpuscular Volume 85.8 fL (80-100); Monocytes Absolute Auto 600 /uL (0-900); Monocytes Percent Auto 10.3 % (3-14); Neutrophils Absolute Auto 3200 /uL (1500-7000); Neutrophils Percent Auto 57.5 % (50-75); Platelet Count 246 X10^3/uL (150-400); Red Blood Cell Count 4.55 X10^6/uL (4.0-5.2); Red Cell Distribution Width 16.1 % (11.6-14.8); White Blood Cell Count 5.6 X10^3/uL (4.5-11.0)
[2024-04-23 08:58] LABS: Alanine Aminotransferase 17 IU/L (<35); Albumin 3.8 g/dL (3.5-5.0); Albumin Globulin Ratio 1.3 (1.0-2.8); Alkaline Phosphatase 98 U/L (38-126); Aspartate Aminotransferase 27 IU/L (14-36); BUN Creatinine Ratio 20.9 (6-22); Bilirubin Total 0.5 mg/dL (0.2-1.3); Blood Urea Nitrogen 18 mg/dL (7-17); Calcium 9.4 mg/dL (8.4-10.2); Carbon Dioxide 25 mmol/L (22-32); Chloride 105 mmol/L (98-107); Cholesterol 181 mg/dL (140-199); Estimated Glomerular Filt Rate > 60 mL/min (>60); Globulin 2.9 g/dL (1.7-4.1); Glucose 92 mg/dL (80-110); HDL Cholesterol 94 mg/dL (40-60); HEMOLYSIS < 15 (0-50); LDL Cholesterol Calculated 73 mg/dL (<100); Potassium 4.2 mmol/L (3.4-5.1); Sodium 135 mmol/L (137-145); Total Protein 6.7 g/dL (6.3-8.2); Triglycerides 70 mg/dL (35-150)
[2024-04-23 09:02] LABS: High Sensitivity CRP - Cardiac 2.6 mg/L (1.0-3.0)
== END ==
PROVIDERS: Family Provider Family Medicine; PCP Family Medicine; Referring Provider Family Medicine; Visit Provider Family Medicine
DX: M25.519 Pain in unspecified shoulder (principal); G89.29 Other chronic pain; E55.9 Vitamin D deficiency, unspecified; E87.1 Hypo-osmolality and hyponatremia; E83.52 Hypercalcemia; E78.5 Hyperlipidemia, unspecified
CPT/HCPCS: 36415; 80053; 80061; 85025; 86140

== ENCOUNTER → 2024-05-14 14:17 | Outpatient (CLI) | payer MEDICARE, OTHER, SELFPAY ==
[2024-05-14 15:31] LABS: Appearance Urine UA CLEAR; Bilirubin Urine UA NEGATIVE (NEGATIVE); Color Urine UA YELLOW; Glucose Urine UA NEGATIVE (Negative); Ketones Urine UA NEGATIVE (NEGATIVE); Leukocyte Esterase Urine UA NEGATIVE (NEGATIVE); Nitrite Urine UA NEGATIVE (Negative); Occult Blood Urine UA TRACE-INTACT (Negative); Protein Urine UA NEGATIVE (Negative); Specific Gravity Urine UA <=1.005 (1.000-1.035); Urobilinogen Urine UA 0.2 E.U./dL (0.2)
[2024-05-14 15:46] LABS: Urine Volume 10mL (spun); pH Urine UA 7.5 (4.5-8.0)
[2024-05-14 15:47] LABS: Bacteria Urine None Seen; Culture Indicated Urine Cult Not Indicated; RBC Urine 0-1/HPF (0-5/HPF); Squamous Epithelial Cell Urine None Seen (0-5/HPF); WBC Urine 0-1/HPF (0-5/HPF)
== END ==
PROVIDERS: Family Provider Family Medicine; PCP Family Medicine; Referring Provider Family Medicine; Visit Provider Family Medicine
DX: R30.0 Dysuria (principal)
CPT/HCPCS: 81001

== ENCOUNTER 2024-05-25 07:30 | Outpatient (RCR) | payer MEDICARE, OTHER, SELFPAY ==
--- NOTE | 2024-01-21 12:33 | PT.OIE ---
Current Diagnoses Other chronic pain (01/21/24) Pain in unspecified shoulder (01/21/24) Past Medical History (Last Updated 12/24/23 @ 16:45 by Malorie Mota DO) Anxiety Back pain (~2008) Chicken pox (~1963) Difficulty swallowing (~2006) Diverticulosis (~2018) Eczema Exposure to COVID-19 virus Glaucoma Hemorrhoid (~1980) History of UTI (~1975) Hypercalcemia Lumbar degenerative disc disease Measles Osteopenia (~2017) Painful menstrual periods Positive colorectal cancer screening using Cologuard test Right arm fracture (~2015) Rubella Sciatica Thumb pain (~2015) Tinnitus Vertigo Vision disorder White coat syndrome without hypertension (~1996) Past Surgical History (Last Reviewed 08/13/22 @ 07:50 by Guy Kenyon MD) Anesthesia History of appendectomy History of section (~1980) History of tonsillectomy and adenoidectomy Hx of colonoscopy with polypectomy (~07/2019) Visit Care Team Role Provider Type Malorie Mota DO Attending Provider Physician Family Provider Primary Care Provider Referring Provider Specialty: Medical Address: [address] [place] [address], [address], [place], [facility] Email: [email or web address] Physical Therapy Initial Evaluation PT-OP-A Visit Information Start: 01/21/24 08:11 Freq: Status: Active Protocol: Document 01/21/24 10:30 NM (Rec: 01/21/24 13:02 NM [id number]) Out-Patient Physical Therapy Visit Information Visit Information Visit Type Initial Evaluation Visit Note KX after 19 visits Visit Start Time 10:30 Visit Stop Time 11:15 Visit Number 1 Evaluation Information Evaluation Date 01/21/24 Precautions Precautions osteopenia, possibly osteoporosis PT-OP-B Current Condition Start: 01/21/24 08:11 Freq: Status: Active Protocol: Document 01/21/24 10:30 NM (Rec: 01/21/24 13:02 NM [id number]) Current Condition History of Current Condition Onset Date 3-4 months worsening Current Complaints pain, mobility History of Current Condition Pt presents with R shoulder pain that has been progressively worsening. 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 She reports that the pain is debilitating. She performs yoga, pilates, weight training, dancing. Pt has pain with arm elevation, dressing, sleeping (usually sleeps on R side, propped on pillow which leads to less pain), eccentric lowering of arm. She reports pain comes and goes. She has been seeing a chiropractor for pain without relief, every couple of weeks. At this time, not planning to have surgery. Denies neck pain, numbness/ tingling. Has crepitus in shoulder; no reports of locking/stuck. No pain at rest PT-OP-C Subjective Start: 01/21/24 08:11 Freq: Status: Active Protocol: Document 01/21/24 10:30 NM (Rec: 01/21/24 13:02 NM [id number]) OP-PT Subjective Patient Comments Patient Comments see hx above for pt report Patient Questionnaires Quick Dash- Upper Extremity Quick Dash UE Score score 37, 59% OP-PT Pain Assessment Pain Assessment Grid Paper Pain Assessment Grid Completed Yes Location R shoulder Pain Location Details lateral, anterior, posterior shoulder Intensity 3 Scale Used Numeric (0 - 10) Description Pinching,Sharp Description- Other restricting, worts 6-8/10 Frequency Frequent Radiating Location posterior arm to elbow Pain Aggravating Factors Position,ADL's,Activity, Lifting Other Pain Aggravating Factors arm elevation, reaching, sewing/quilting Pain Alleviating Factors Heat,Medication,Rest Other Pain Alleviating Factors taping, sublingual arnica, topical cream PT-OP-E Functional Tests Start: 01/21/24 08:11 Freq: Status: Active Protocol: Document 01/21/24 10:30 NM (Rec: 01/21/24 13:02 NM [id number]) Functional Tests Apley's Scratch Test Action 1- Left post scapular Action 1- Right to AC joint, pain Action 2- Left T4 Action 2- Right to occiput base, T2 with head flexion, pain Action 3- Left T4 Action 3- Right T12, pain PT-OP-F Manual Assessment Start: 01/21/24 08:11 Freq: Status: Active Protocol: Document 01/21/24 10:30 NM (Rec: 01/21/24 13:02 NM [id number]) Manual Assessments Soft Tissue Assessment Soft Tissue Mobility Assessment Atrophy of R paraspinals, upper trapezius compared to LUE. Joint Mobility Assessment Joint Mobility Assessment Decreased passive and active AROM of R shoulder, empty end feel. Anterior humeral position. Worse with abduction , IR, ER. Decreased AC joint space. 1st rib does not appear elevated with CRLF test PT-OP-H Neuro Start: 01/21/24 08:11 Freq: Status: Active Protocol: Document 01/21/24 10:30 NM (Rec: 01/21/24 13:02 NM [id number]) Sensation Evaluation Comments Summary Comments BUE intact to light touch sensation bilaterally PT-OP-J Posture/Palpation/Skin Start: 01/21/24 08:11 Freq: Status: Active Protocol: Document 01/21/24 10:30 NM (Rec: 01/21/24 13:02 NM [id number]) Posture Evaluation Position Standing Head/C-Spine Posture Forward Head T-Spine Posture Rotation Left,Increased Kyphosis Shoulder Posture (L) Rounded,(R) Rounded,(L) Forward,(R) Forward Comments Posture Comments R shoulder slightly elevated, possible R thoracic curve, protraction Palpation Assessment Location R shoulder Palpation Findings Soft Tissue Tightness, Tenderness Palpation Details tenderness at posterior cuff origin and insertion. Tightness at R lat No tenderness at LH biceps PT-OP-K Range of Motion Start: 01/21/24 08:11 Freq: Status: Active Protocol: Document 01/21/24 10:30 NM (Rec: 01/21/24 13:02 NM [id number]) Cervical Spine Range of Motion Cervical Spine Active Degrees Flexion 30 Extension 50 Rotation Left 65 Rotation Right 80 Lateral Flexion Left 45 Lateral Flexion Right 40 ROM Limitations Soft Tissue Tightness Comments No pain Shoulder Goniometric Range of Motion Shoulder Left Flexion 155 Abduction 170 External Rotation at 90 degrees 75 Abduction External Rotation at 0 degrees Abduction 80 Internal Rotation 80 Right AROM Flexion 110 Abduction 70 External Rotation at 0 degrees Abduction 35 Internal Rotation 65 Comments All motions painful Right PROM Flexion 140 Abduction 120 External Rotation at 0 degrees Abduction 80 Comments pain with abduction and ER, end range flexion PT-OP-L Special Tests Start: 01/21/24 08:11 Freq: Status: Active Protocol: Document 01/21/24 10:30 NM (Rec: 01/21/24 13:02 NM [id number]) Special Tests Cervical Spine Special Tests Traction Test Results - Spurling's Test Test Results - Shoulder Special Tests Empty Can Test Results + Comments ER worse than IR External Rotation Lag Sign Test Results + Drop Arm Rotator Cuff Test Results - Elevation Impingement Test Results + PT-OP-M Strength Start: 01/21/24 08:11 Freq: Status: Active Protocol: Document 01/21/24 10:30 NM (Rec: 01/21/24 13:02 NM [id number]) Cervical Spine Strength Cervical Spine Manual Muscle Testing Flexion (C1-2) 4+ Good+ Extension 4+ Good+ Rotation Left 4+ Good+ Rotation Right 4+ Good+ Lateral Flexion Left (C3) 4+ Good+ Lateral Flexion Right (C3) 4+ Good+ Shoulder Strength Shoulder Manual Muscle Testing Left Flexion 4 Good Abduction (C5) 4 Good External Rotation 4 Good Internal Rotation 4 Good Right Flexion 3+ Fair+ Abduction (C5) 3+ Fair+ External Rotation 3+ Fair+ Internal Rotation 3+ Fair+ Comments pain with ER, abd Elbow/Forearm Strength Elbow and Forearm Manual Muscle Testing Left Flexion (C6) 4+ Good+ Extension (C7) 4+ Good+ PT-OP-Q Treatments Start: 01/21/24 08:11 Freq: Status: Active Protocol: Document 01/21/24 10:30 NM (Rec: 01/21/24 13:02 NM [id number]) Therapeutic Exercises Supine Exercises R shoulder AAROM Supine Exercise Name 1. ER, 2. abd with resisted eccentric, 3. flex with resisted eccentric Side right Resistance L assist R Equipment Used dowel for ER/abd, L hand assist for flexion Reps/Minutes 1x5 ea, slowly for control Comments cues to remain pain free ROM; pain free with eccentric resistance PT-OP-T Assessment and Plan Start: 01/21/24 08:11 Freq: Status: Active Protocol: Document 01/21/24 10:30 NM (Rec: 01/21/24 13:02 NM [id number]) Physical Therapy Assessment Rehab Potential Rehabilitation Potential Good Evaluation Complexity Number of Personal Factors/Comorbidities 1-2 Number of Body Systems Impaired 1-2 Clinical Presentation at Evaluation Stable Impairments Impairments Activity Tolerance,Functional Activities,Functional Mobility ,Gait,Integument,Pain,Posture, ROM,Soft Tissue Mobility, Strength Goals Six Impairment HEP Short Term Goal (STG) Pt will report compliance with HEP at least 2-3x/wk in order to maximize progression with PT STG Duration 6 weeks Longterm Goal (LTG) Pt will report compliance with HEP at least 3x/wk in order to transition into maintenance program upon discharge from PT LTG Duration 12 weeks Five Impairment strength Impairment R shoulder abduction/ER/ flexion/IR 3+/5 MMT Short Term Goal (STG) Pt will increase R shoulder abduction/flexion/ER/IR strength to at least 4-/5 MMT in order to demonstrate improved shoulder strength during lifting, ADLs STG Duration 6 weeks Mat Machine Tender Goal (LTG) Pt will increase R shoulder abduction/flexion/ER/IR strength to at least 4/5 MMT in order to demonstrate improved shoulder strength during lifting, ADLs LTG Duration 12 weeks Four Impairment AROM Impairment R shoulder abduction 70 deg, R shoulder flexion 110 deg Short Term Goal (STG) Pt will improve R shoulder abduction AROM to at least 90 deg and R shoulder flexion AROM to at least 120 deg in order to demonstrate increased ability to reach overhead during ADLs/IADLs STG Duration 6 weeks Mat Machine Tender Goal (LTG) Pt will improve R shoulder abduction AROM to at least 110 deg and R shoulder flexion AROM to at least 135 deg in order to demonstrate increased ability to reach overhead during ADLs/IADLs LTG Duration 12 weeks Three Impairment AROM Impairment R shoulder Apley IR to T12 Short Term Goal (STG) Pt will improve R shoulder Apley IR to at least T10 in order to demonstrate improved R shoulder AROM for dressing STG Duration 6 weeks Longterm Goal (LTG) Pt will improve R shoulder Apley IR to at least T8 in order to demonstrate improved R shoulder AROM for dressing LTG Duration 12 weeks Two Impairment AROM Impairment R shoulder Apley ER to occiput Short Term Goal (STG) Pt will improve R shoulder apley ER test to at least T2 without compensation in order to demonstrate improved AROM for grooming and dressing STG Duration 6 weeks Mat Machine Tender Goal (LTG) Pt will improve R shoulder apley ER test to at least T4 without compensation in order to demonstrate improved AROM for grooming and dressing LTG Duration 12 weeks One Impairment quickdash Impairment score 37, 59% Short Term Goal (STG) Pt will decrease quickdash score by at least 5% in order to demonstrate improvements in R shoulder pain management and QOL STG Duration 6 weeks Longterm Goal (LTG) Pt will decrease quickdash score by at least 11% in order to demonstrate improvements in R shoulder pain management and QOL LTG Duration 12 weeks Assessment Summary Assessment Pt is a 68 y.o. female presenting with R shoulder pain related to glenohumeral OA. Pt also has rotator cuff weakness with possible tear based on special tests, likely atraumatic, although this could be impacted by her restrictions due to OA. However, this would require further imaging to dx. She is wanting to try conservative care prior to considering surgical intervention to address OA. Pt presents with decreased global R shoulder AROM and PROM, particularly into abduction and ER. She also has decreased R shoulder strength, which is painful. Pt 's posture is forward and kyphotic, including anterior humeral positioning and decreased AC joint space; she also has hx of scoliosis and elevated R shoulder elevation/ protraction. Pt has atrophy of R upper trapezius. Due to pain and limitations in AROM/ strength, pt has difficulty with performing ADLs/IADLs and participating in recreational activities. PT and pt discussed exam findings and plan of care; initiated HEP to address R shoulder mobility within pain free range. Pt verbalizes understanding. Depending on pt progression with PT, she will be referred back for additional imaging and further assessment from orthopedics to address pain symptoms. She would benefit from skilled PT for R shoulder mobilization and strengthening in order to improve activity tolerance, pain management, and QOL. Physical Therapy Plan Frequency and Duration Frequency of Treatment 2x/Week Duration of treatment (weeks) 12 Plan of Care Start Date 01/21/24 Plan of Care End Date 04/16/24 Therapeutic Interventions Therapeutic Interventions Aquatic Therapy,Coordination Training,Gait Training,Home Exercise Program,Joint Mobilizations,Manual Therapy, Neuromuscular Re-education, Orthotic/Prosthetic Management ,Patient/Caregiver Education, Self-Care/Home Management, Sensory Integration,Soft Tissue Mobilization,Taping, Therapeutic Activities, Therapeutic Exercises Modalities Cold Pack/Ice Massage,Electric Stimulation,Hot Packs, Ultrasound,Vasopneumatic Devices Next Visit Focus/Plan Next Note Type Treatment Note Next Visit Plan R shoulder AAROM, periscapular strengthening, open book, cervical spine stretch AROM Manual: grade II mobilizations to R shoulder, cervical spine No grade IV mobilizations
--- NOTE | 2024-01-26 15:42 | PT.OTN ---
Current Diagnoses Other chronic pain (01/26/24) Pain in unspecified shoulder (01/26/24) Physical Therapy Treatment Note PT-OP-A Visit Information Start: 01/21/24 08:11 Freq: Status: Active Protocol: Document 01/26/24 13:46 NM (Rec: 01/26/24 14:33 NM [id number]) Out-Patient Physical Therapy Visit Information Visit Information Visit Type Treatment Note Visit Note KX after 19 visits Visit Start Time 13:46 Visit Stop Time 14:30 Visit Number 2 Evaluation Information Evaluation Date 01/21/24 Precautions Precautions osteopenia, possibly osteoporosis PT-OP-B Current Condition Start: 01/21/24 08:11 Freq: Status: Active Protocol: Document 01/21/24 10:30 NM (Rec: 01/21/24 13:02 NM [id number]) Current Condition History of Current Condition Onset Date 3-4 months worsening Current Complaints pain, mobility History of Current Condition Pt presents with R shoulder pain that has been progressively worsening. 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 She reports that the pain is debilitating. She performs yoga, pilates, weight training, dancing. Pt has pain with arm elevation, dressing, sleeping (usually sleeps on R side, propped on pillow which leads to less pain), eccentric lowering of arm. She reports pain comes and goes. She has been seeing a chiropractor for pain without relief, every couple of weeks. At this time, not planning to have surgery. Denies neck pain, numbness/ tingling. Has crepitus in shoulder; no reports of locking/stuck. No pain at rest PT-OP-C Subjective Start: 01/21/24 08:11 Freq: Status: Active Protocol: Document 01/26/24 13:46 NM (Rec: 01/26/24 14:33 NM [id number]) OP-PT Subjective Patient Comments Patient Comments Pt reports that she had no pain after IE, but reports that her shoulder had been bothering her over the last several days. She thinks that the HEP might aggravate her R shoulder PT-OP-E Functional Tests Start: 01/21/24 08:11 Freq: Status: Active Protocol: Document 01/21/24 10:30 NM (Rec: 01/21/24 13:02 NM [id number]) Functional Tests Apley's Scratch Test Action 1- Left post scapular Action 1- Right to AC joint, pain Action 2- Left T4 Action 2- Right to occiput base, T2 with head flexion, pain Action 3- Left T4 Action 3- Right T12, pain PT-OP-F Manual Assessment Start: 01/21/24 08:11 Freq: Status: Active Protocol: Document 01/21/24 10:30 NM (Rec: 01/21/24 13:02 NM [id number]) Manual Assessments Soft Tissue Assessment Soft Tissue Mobility Assessment Atrophy of R paraspinals, upper trapezius compared to LUE. Joint Mobility Assessment Joint Mobility Assessment Decreased passive and active AROM of R shoulder, empty end feel. Anterior humeral position. Worse with abduction , IR, ER. Decreased AC joint space. 1st rib does not appear elevated with CRLF test PT-OP-H Neuro Start: 01/21/24 08:11 Freq: Status: Active Protocol: Document 01/21/24 10:30 NM (Rec: 01/21/24 13:02 NM [id number]) Sensation Evaluation Comments Summary Comments BUE intact to light touch sensation bilaterally PT-OP-J Posture/Palpation/Skin Start: 01/21/24 08:11 Freq: Status: Active Protocol: Document 01/21/24 10:30 NM (Rec: 01/21/24 13:02 NM [id number]) Posture Evaluation Position Standing Head/C-Spine Posture Forward Head T-Spine Posture Rotation Left,Increased Kyphosis Shoulder Posture (L) Rounded,(R) Rounded,(L) Forward,(R) Forward Comments Posture Comments R shoulder slightly elevated, possible R thoracic curve, protraction Palpation Assessment Location R shoulder Palpation Findings Soft Tissue Tightness, Tenderness Palpation Details tenderness at posterior cuff origin and insertion. Tightness at R lat No tenderness at LH biceps PT-OP-K Range of Motion Start: 01/21/24 08:11 Freq: Status: Active Protocol: Document 01/21/24 10:30 NM (Rec: 01/21/24 13:02 NM [id number]) Cervical Spine Range of Motion Cervical Spine Active Degrees Flexion 30 Extension 50 Rotation Left 65 Rotation Right 80 Lateral Flexion Left 45 Lateral Flexion Right 40 ROM Limitations Soft Tissue Tightness Comments No pain Shoulder Goniometric Range of Motion Shoulder Left Flexion 155 Abduction 170 External Rotation at 90 degrees 75 Abduction External Rotation at 0 degrees Abduction 80 Internal Rotation 80 Right AROM Flexion 110 Abduction 70 External Rotation at 0 degrees Abduction 35 Internal Rotation 65 Comments All motions painful Right PROM Flexion 140 Abduction 120 External Rotation at 0 degrees Abduction 80 Comments pain with abduction and ER, end range flexion PT-OP-L Special Tests Start: 01/21/24 08:11 Freq: Status: Active Protocol: Document 01/21/24 10:30 NM (Rec: 01/21/24 13:02 NM [id number]) Special Tests Cervical Spine Special Tests Traction Test Results - Spurling's Test Test Results - Shoulder Special Tests Empty Can Test Results + Comments ER worse than IR External Rotation Lag Sign Test Results + Drop Arm Rotator Cuff Test Results - Elevation Impingement Test Results + PT-OP-M Strength Start: 01/21/24 08:11 Freq: Status: Active Protocol: Document 01/21/24 10:30 NM (Rec: 01/21/24 13:02 NM [id number]) Cervical Spine Strength Cervical Spine Manual Muscle Testing Flexion (C1-2) 4+ Good+ Extension 4+ Good+ Rotation Left 4+ Good+ Rotation Right 4+ Good+ Lateral Flexion Left (C3) 4+ Good+ Lateral Flexion Right (C3) 4+ Good+ Shoulder Strength Shoulder Manual Muscle Testing Left Flexion 4 Good Abduction (C5) 4 Good External Rotation 4 Good Internal Rotation 4 Good Right Flexion 3+ Fair+ Abduction (C5) 3+ Fair+ External Rotation 3+ Fair+ Internal Rotation 3+ Fair+ Comments pain with ER, abd Elbow/Forearm Strength Elbow and Forearm Manual Muscle Testing Left Flexion (C6) 4+ Good+ Extension (C7) 4+ Good+ PT-OP-Q Treatments Start: 01/21/24 08:11 Freq: Status: Active Protocol: Document 01/26/24 13:46 NM (Rec: 01/26/24 14:33 NM [id number]) Therapeutic Exercises Supine Exercises pectoralis stretch Supine Exercise Name T at 90 deg Side bilateral Equipment Used 1/2 foam roller Reps/Minutes 1x60 Comments pain free, reports good stretch, feels great R shoulder AAROM Supine Exercise Name 1. flexion, 2. abd, 3. ER Side right Resistance L assist R hand Reps/Minutes 1. 1x10 x2, 2.1x10 x2 (w/ eccentric resist), 3. 1x5 with 2 Comments cued to remain in pain free range; 150 deg flex (pnfr), 155 deg abd (pnfr), Sitting Exercises scapular retractions Sitting Exercise Name with posterior scapular setting Reps/Minutes 1x10 with 5 hold Comments pain free Standing Exercises lat stretch/table walkout Side bilateral Reps/Minutes 1x5 with 10 hold Comments feels marvelous Other Exercises self soft tissue mobilization Other Exercise Name lat, UT, rotator cuff Side right Equipment Used ball in pillowcase, wall Reps/Minutes 2 minutes total Comments pain free; edu on remaining gentle, pain free, use with heat Manual Therapy Treatment Soft Tissue Mobilization R shoulder Body Location rotator cuff, LH biceps, pec, lat Mobilization Type Cross-Friction,Rolling, Strumming,Sustained Pressure, Trigger Point Release Intensity/Depth Moderate Body Position supine,sidelying Comments Monitored for pain. Demos tenderness of R lat near axilla, R rotator cuff (teres) and pectoralis. Performed trigger point release of R lat and R teres. Improved pain symptoms post mobilization Joint Mobilizations R 1st rib Direction caudal Grade II Body Position Sidelying Reps/Duration 1x10 Comments Elevated 1st rib, performed prior to mobilization of GHJ. Monitored for pain, less elevated at end of mobilization R AC joint Direction Ant on clavicle, post on scapula Grade II Body Position Sidelying Reps/Duration 1x10 ea Comments Decreased anterior clavicle translation, no pain with mobilization but limited mobility. Minimal posterior translation of R scapula posteriorly. Limits overhead movement R shoulder Joint GHJ Direction P-A, inf with axial distraction Grade II Reps/Duration 1x15 ea Comments Decreased inf glide up to 100 deg, bony block and muscle guarding limits further elevation. Demos crepitus with increasing elevation. Monitored for pain. Good tolerance for grade II mobilizations Self-Care/Home Management Treatment Education Patient Education Home Exercise Program,Joint Protection,Pain Management Other Education 8 minutes- HEP: pec stretch, soft tissue mobilization, table walkout for lat stretch, scapular retractions with post setting. Reviewed past HEP: educated to d/c eccentric resistance if pain occurs ( not always), towel roll btwn arm for ER. Educated during exercise class to limit body weight exercises at this time, no overhead/arm elevation exercises with resistance (ok for biceps, triceps as long as pain free). Pt verbalizes understanding PT-OP-T Assessment and Plan Start: 01/21/24 08:11 Freq: Status: Active Protocol: Document 01/26/24 13:46 NM (Rec: 01/26/24 14:33 NM [id number]) Physical Therapy Assessment Goals Six Impairment HEP Short Term Goal (STG) Pt will report compliance with HEP at least 2-3x/wk in order to maximize progression with PT STG Duration 6 weeks Correction Goal (LTG) Pt will report compliance with HEP at least 3x/wk in order to transition into maintenance program upon discharge from PT LTG Duration 12 weeks Five Impairment strength Impairment R shoulder abduction/ER/ flexion/IR 3+/5 MMT Short Term Goal (STG) Pt will increase R shoulder abduction/flexion/ER/IR strength to at least 4-/5 MMT in order to demonstrate improved shoulder strength during lifting, ADLs STG Duration 6 weeks [employer]ent Acquisition Director Goal (LTG) Pt will increase R shoulder abduction/flexion/ER/IR strength to at least 4/5 MMT in order to demonstrate improved shoulder strength during lifting, ADLs LTG Duration 12 weeks Four Impairment AROM Impairment R shoulder abduction 70 deg, R shoulder flexion 110 deg Short Term Goal (STG) Pt will improve R shoulder abduction AROM to at least 90 deg and R shoulder flexion AROM to at least 120 deg in order to demonstrate increased ability to reach overhead during ADLs/IADLs STG Duration 6 weeks Correction Goal (LTG) Pt will improve R shoulder abduction AROM to at least 110 deg and R shoulder flexion AROM to at least 135 deg in order to demonstrate increased ability to reach overhead during ADLs/IADLs LTG Duration 12 weeks Three Impairment AROM Impairment R shoulder Apley IR to T12 Short Term Goal (STG) Pt will improve R shoulder Apley IR to at least T10 in order to demonstrate improved R shoulder AROM for dressing STG Duration 6 weeks Correction Goal (LTG) Pt will improve R shoulder Apley IR to at least T8 in order to demonstrate improved R shoulder AROM for dressing LTG Duration 12 weeks Two Impairment AROM Impairment R shoulder Apley ER to occiput Short Term Goal (STG) Pt will improve R shoulder apley ER test to at least T2 without compensation in order to demonstrate improved AROM for grooming and dressing STG Duration 6 weeks [employer]ent Ac[employer] Director Goal (LTG) Pt will improve R shoulder apley ER test to at least T4 without compensation in order to demonstrate improved AROM for grooming and dressing LTG Duration 12 weeks One Impairment quickdash Impairment score 37, 59% Short Term Goal (STG) Pt will decrease quickdash score by at least 5% in order to demonstrate improvements in R shoulder pain management and QOL STG Duration 6 weeks [employer]ent Acquisition Director Goal (LTG) Pt will decrease quickdash score by at least 11% in order to demonstrate improvements in R shoulder pain management and QOL LTG Duration 12 weeks Assessment Summary Assessment Pt tolerated session well and reports decrease in pain levels at end of session (did not provide number). Pt R arm elevation limited by lat length, improved post stretching and mobilization. Education on activity modification with exercise, recommended not doing chiro for UE in order to determine efficacy of PT; pt verbalizes agreement. Manual treatment to reduce soft tissue restrictions, pain reduction with grade II mobilizations. Demos first rib elevation, lat tightness, and decreased AC joint/GH joint mobility. Pt pain free with AAROM, improved range into abduction and flexion AROM, but decreased ER ; cued for form, remaining within pain free range. Pt with good tolerance for stretching, mobilization; however, demos poor scapular control and mobility with overhead movements. Future sessions to emphasize scapular control, strengthening due to rotator cuff weakness. Pt would benefit from skilled PT to improve R shoulder mobility , periscapular and rotator cuff strength within available range in order to improve activity tolerance and decrease pain symptoms. Physical Therapy Plan Frequency and Duration Frequency of Treatment 2x/Week Duration of treatment (weeks) 12 Plan of Care Start Date 01/21/24 Plan of Care End Date 04/16/24 Therapeutic Interventions Therapeutic Interventions Aquatic Therapy,Coordination Training,Gait Training,Home Exercise Program,Joint Mobilizations,Manual Therapy, Neuromuscular Re-education, Orthotic/Prosthetic Management ,Patient/Caregiver Education, Self-Care/Home Management, Sensory Integration,Soft Tissue Mobilization,Taping, Therapeutic Activities, Therapeutic Exercises Modalities Cold Pack/Ice Massage,Electric Stimulation,Hot Packs, Ultrasound,Vasopneumatic Devices Next Visit Focus/Plan Next Note Type Treatment Note Next Visit Plan Next session: [place] ball IWTY, scap retraction, sidelying AROM>AAROM, inf glide R shoulder AAROM, periscapular strengthening, open book, cervical spine stretch AROM Manual: grade II-III mobilizations to R shoulder, AC joint, 1st rib; STM to CS, R shoulder, lat No grade IV mobilizations
--- NOTE | 2024-01-28 16:38 | PT.OTN ---
Current Diagnoses Other chronic pain (01/28/24) Pain in unspecified shoulder (01/28/24) Physical Therapy Treatment Note PT-OP-A Visit Information Start: 01/21/24 08:11 Freq: Status: Active Protocol: Document 01/28/24 12:53 AB (Rec: 01/28/24 16:38 AB [id number]) Out-Patient Physical Therapy Visit Information Visit Information Visit Type Treatment Note Visit Note KX after 19 visits Access Code [email or web address] Visit Start Time 13:02 Visit Stop Time 14:31 Visit Number 3 Number of MANAGER DIESEL Visits 1 Evaluation Information Evaluation Date 01/21/24 Precautions Precautions osteopenia, possibly osteoporosis PT-OP-B Current Condition Start: 01/21/24 08:11 Freq: Status: Active Protocol: Document 01/21/24 10:30 NM (Rec: 01/21/24 13:02 NM [id number]) Current Condition History of Current Condition Onset Date 3-4 months worsening Current Complaints pain, mobility History of Current Condition Pt presents with R shoulder pain that has been progressively worsening. 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 She reports that the pain is debilitating. She performs yoga, pilates, weight training, dancing. Pt has pain with arm elevation, dressing, sleeping (usually sleeps on R side, propped on pillow which leads to less pain), eccentric lowering of arm. She reports pain comes and goes. She has been seeing a chiropractor for pain without relief, every couple of weeks. At this time, not planning to have surgery. Denies neck pain, numbness/ tingling. Has crepitus in shoulder; no reports of locking/stuck. No pain at rest PT-OP-C Subjective Start: 01/21/24 08:11 Freq: Status: Active Protocol: Document 01/28/24 12:53 AB (Rec: 01/28/24 16:38 AB [id number]) OP-PT Subjective Patient Comments Patient Comments Patient reports she may be better it comes and goes. Patient reports she did some exercises yesterday, not therapy ones and tweaked the shoulder. AROM 95 deg flexion right shoulder start of session. PT-OP-E Functional Tests Start: 01/21/24 08:11 Freq: Status: Active Protocol: Document 01/21/24 10:30 NM (Rec: 01/21/24 13:02 NM [id number]) Functional Tests Apley's Scratch Test Action 1- Left post scapular Action 1- Right to AC joint, pain Action 2- Left T4 Action 2- Right to occiput base, T2 with head flexion, pain Action 3- Left T4 Action 3- Right T12, pain PT-OP-F Manual Assessment Start: 01/21/24 08:11 Freq: Status: Active Protocol: Document 01/21/24 10:30 NM (Rec: 01/21/24 13:02 NM [id number]) Manual Assessments Soft Tissue Assessment Soft Tissue Mobility Assessment Atrophy of R paraspinals, upper trapezius compared to LUE. Joint Mobility Assessment Joint Mobility Assessment Decreased passive and active AROM of R shoulder, empty end feel. Anterior humeral position. Worse with abduction , IR, ER. Decreased AC joint space. 1st rib does not appear elevated with CRLF test PT-OP-H Neuro Start: 01/21/24 08:11 Freq: Status: Active Protocol: Document 01/21/24 10:30 NM (Rec: 01/21/24 13:02 NM [id number]) Sensation Evaluation Comments Summary Comments BUE intact to light touch sensation bilaterally PT-OP-J Posture/Palpation/Skin Start: 01/21/24 08:11 Freq: Status: Active Protocol: Document 01/21/24 10:30 NM (Rec: 01/21/24 13:02 NM [id number]) Posture Evaluation Position Standing Head/C-Spine Posture Forward Head T-Spine Posture Rotation Left,Increased Kyphosis Shoulder Posture (L) Rounded,(R) Rounded,(L) Forward,(R) Forward Comments Posture Comments R shoulder slightly elevated, possible R thoracic curve, protraction Palpation Assessment Location R shoulder Palpation Findings Soft Tissue Tightness, Tenderness Palpation Details tenderness at posterior cuff origin and insertion. Tightness at R lat No tenderness at LH biceps PT-OP-K Range of Motion Start: 01/21/24 08:11 Freq: Status: Active Protocol: Document 01/21/24 10:30 NM (Rec: 01/21/24 13:02 NM [id number]) Cervical Spine Range of Motion Cervical Spine Active Degrees Flexion 30 Extension 50 Rotation Left 65 Rotation Right 80 Lateral Flexion Left 45 Lateral Flexion Right 40 ROM Limitations Soft Tissue Tightness Comments No pain Shoulder Goniometric Range of Motion Shoulder Left Flexion 155 Abduction 170 External Rotation at 90 degrees 75 Abduction External Rotation at 0 degrees Abduction 80 Internal Rotation 80 Right AROM Flexion 110 Abduction 70 External Rotation at 0 degrees Abduction 35 Internal Rotation 65 Comments All motions painful Right PROM Flexion 140 Abduction 120 External Rotation at 0 degrees Abduction 80 Comments pain with abduction and ER, end range flexion PT-OP-L Special Tests Start: 01/21/24 08:11 Freq: Status: Active Protocol: Document 01/21/24 10:30 NM (Rec: 01/21/24 13:02 NM [id number]) Special Tests Cervical Spine Special Tests Traction Test Results - Spurling's Test Test Results - Shoulder Special Tests Empty Can Test Results + Comments ER worse than IR External Rotation Lag Sign Test Results + Drop Arm Rotator Cuff Test Results - Elevation Impingement Test Results + PT-OP-M Strength Start: 01/21/24 08:11 Freq: Status: Active Protocol: Document 01/21/24 10:30 NM (Rec: 01/21/24 13:02 NM [id number]) Cervical Spine Strength Cervical Spine Manual Muscle Testing Flexion (C1-2) 4+ Good+ Extension 4+ Good+ Rotation Left 4+ Good+ Rotation Right 4+ Good+ Lateral Flexion Left (C3) 4+ Good+ Lateral Flexion Right (C3) 4+ Good+ Shoulder Strength Shoulder Manual Muscle Testing Left Flexion 4 Good Abduction (C5) 4 Good External Rotation 4 Good Internal Rotation 4 Good Right Flexion 3+ Fair+ Abduction (C5) 3+ Fair+ External Rotation 3+ Fair+ Internal Rotation 3+ Fair+ Comments pain with ER, abd Elbow/Forearm Strength Elbow and Forearm Manual Muscle Testing Left Flexion (C6) 4+ Good+ Extension (C7) 4+ Good+ PT-OP-Q Treatments Start: 01/21/24 08:11 Freq: Status: Active Protocol: Document 01/28/24 12:53 AB (Rec: 01/28/24 16:38 AB [id number]) Therapeutic Exercises Supine Exercises mini band Supine Exercise Name shoulder er with band with flexion Side bilateral Equipment Used single thickness level one band Reps/Minutes X10 Comments monitored for pain pectoralis stretch Supine Exercise Name T at 90 deg Side bilateral Equipment Used 1/2 foam roller Reps/Minutes 3 min Comments pain free, reports good stretch, feels great R shoulder AAROM Supine Exercise Name 1. flexion, Side bilateral Equipment Used dowel for ER/abd, L hand assist for flexion Reps/Minutes X10 Comments VC to perform in pain free range Prone Exercises Y overball Prone Exercise Name over ball on mat Side bilateral Reps/Minutes X10 Comments verbal cues for UE position and movement tactile cues at scapula T with elbow bent Prone Exercise Name over ball on mat Side bilateral Reps/Minutes X10 X 2 Comments Verbal cues to bend elbow, initated with UE straight and trial 1lb not renay Manual Therapy Treatment Soft Tissue Mobilization right shoulder Body Location pec, post cuff, UT/levator scap Mobilization Type Cross-Friction,Rolling Intensity/Depth Moderate Body Position Sidelying Comments and hooklying monitored for pain Joint Mobilizations scapular Joint right scapula Direction into adduction and depression Grade III Body Position Sidelying Reps/Duration X16 Comments Monitored for pain GH Joint right GH Direction inf and AP Grade III Body Position Hooklying Reps/Duration X16 each Comments monitored for pain Taping right shoulder Body Location right shoulder Treatment Focus posture and unload UT Type of Tape Kinesio Tape Skin Inspection WNL Comments Patient ed to remove tape in 3 -5 days or immediately if skin irritation occurs Self-Care/Home Management Treatment Education Other Education patient ed to avoid raising UE 's overhead with thumbs down during ex classes she attends Activities Self-Care/Home Management Activities Y and T over ball and mini band added to HEP PT-OP-T Assessment and Plan Start: 01/21/24 08:11 Freq: Status: Active Protocol: Document 01/28/24 12:53 AB (Rec: 01/28/24 16:38 AB [id number]) Physical Therapy Assessment Goals Six Impairment HEP Short Term Goal (STG) Pt will report compliance with HEP at least 2-3x/wk in order to maximize progression with PT STG Duration 6 weeks Senior Care Goal (LTG) Pt will report compliance with HEP at least 3x/wk in order to transition into maintenance program upon discharge from PT LTG Duration 12 weeks Five Impairment strength Impairment R shoulder abduction/ER/ flexion/IR 3+/5 MMT Short Term Goal (STG) Pt will increase R shoulder abduction/flexion/ER/IR strength to at least 4-/5 MMT in order to demonstrate improved shoulder strength during lifting, ADLs STG Duration 6 weeks Senior Care Goal (LTG) Pt will increase R shoulder abduction/flexion/ER/IR strength to at least 4/5 MMT in order to demonstrate improved shoulder strength during lifting, ADLs LTG Duration 12 weeks Four Impairment AROM Impairment R shoulder abduction 70 deg, R shoulder flexion 110 deg Short Term Goal (STG) Pt will improve R shoulder abduction AROM to at least 90 deg and R shoulder flexion AROM to at least 120 deg in order to demonstrate increased ability to reach overhead during ADLs/IADLs STG Duration 6 weeks Commercial Finance Analyst Goal (LTG) Pt will improve R shoulder abduction AROM to at least 110 deg and R shoulder flexion AROM to at least 135 deg in order to demonstrate increased ability to reach overhead during ADLs/IADLs LTG Duration 12 weeks Three Impairment AROM Impairment R shoulder Apley IR to T12 Short Term Goal (STG) Pt will improve R shoulder Apley IR to at least T10 in order to demonstrate improved R shoulder AROM for dressing STG Duration 6 weeks [employer] Analyst Goal (LTG) Pt will improve R shoulder Apley IR to at least T8 in order to demonstrate improved R shoulder AROM for dressing LTG Duration 12 weeks Two Impairment AROM Impairment R shoulder Apley ER to occiput Short Term Goal (STG) Pt will improve R shoulder apley ER test to at least T2 without compensation in order to demonstrate improved AROM for grooming and dressing STG Duration 6 weeks [employer] Finance Analyst Goal (LTG) Pt will improve R shoulder apley ER test to at least T4 without compensation in order to demonstrate improved AROM for grooming and dressing LTG Duration 12 weeks One Impairment quickdash Impairment score 37, 59% Short Term Goal (STG) Pt will decrease quickdash score by at least 5% in order to demonstrate improvements in R shoulder pain management and QOL STG Duration 6 weeks [employer] Finance Analyst Goal (LTG) Pt will decrease quickdash score by at least 11% in order to demonstrate improvements in R shoulder pain management and QOL LTG Duration 12 weeks Assessment Summary Assessment AROM right shoulder flexion 103 deg end of session should allow Aracelis to reach items placed at higher levels in the home. Physical Therapy Plan Frequency and Duration Frequency of Treatment 2x/Week Duration of treatment (weeks) 12 Plan of Care Start Date 01/21/24 Plan of Care End Date 04/16/24 Next Visit Focus/Plan Next Note Type Treatment Note Next Visit Plan Next session: taiwanese ball IWTY, scap retraction, sidelying AROM>AAROM, inf glide R shoulder AAROM, periscapular strengthening, open book, cervical spine stretch AROM Manual: grade II-III mobilizations to R shoulder, AC joint, 1st rib; STM to CS, R shoulder, lat, push up plus on wall No grade IV mobilizations
--- NOTE | 2024-02-02 15:00 | PT.OTN ---
Current Diagnoses Other chronic pain (02/02/24) Pain in unspecified shoulder (02/02/24) Physical Therapy Treatment Note PT-OP-A Visit Information Start: 01/21/24 08:11 Freq: Status: Active Protocol: Document 02/02/24 13:48 NM (Rec: 02/02/24 14:33 NM [id number]) Out-Patient Physical Therapy Visit Information Visit Information Visit Type Treatment Note Visit Note KX after 19 visits Visit Start Time 13:48 Visit Stop Time 14:30 Visit Number 4 Evaluation Information Evaluation Date 01/21/24 PT-OP-B Current Condition Start: 01/21/24 08:11 Freq: Status: Active Protocol: Document 01/21/24 10:30 NM (Rec: 01/21/24 13:02 NM [id number]) Current Condition History of Current Condition Onset Date 3-4 months worsening Current Complaints pain, mobility History of Current Condition Pt presents with R shoulder pain that has been progressively worsening. 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 She reports that the pain is debilitating. She performs yoga, pilates, weight training, dancing. Pt has pain with arm elevation, dressing, sleeping (usually sleeps on R side, propped on pillow which leads to less pain), eccentric lowering of arm. She reports pain comes and goes. She has been seeing a chiropractor for pain without relief, every couple of weeks. At this time, not planning to have surgery. Denies neck pain, numbness/ tingling. Has crepitus in shoulder; no reports of locking/stuck. No pain at rest PT-OP-C Subjective Start: 01/21/24 08:11 Freq: Status: Active Protocol: Document 02/02/24 13:48 NM (Rec: 02/02/24 14:33 NM [id number]) OP-PT Subjective Patient Comments Patient Comments Pt reports pain is moving toward R pec. She did not perform any exercises yesterday due to pain. States no pain with dowel flexion, reports subsiding with abduction eccentrics. States 1 /10 pain today at start of session, reports less since rested. States no R shoulder pain with sleeping anymore PT-OP-E Functional Tests Start: 01/21/24 08:11 Freq: Status: Active Protocol: Document 01/21/24 10:30 NM (Rec: 01/21/24 13:02 NM [id number]) Functional Tests Apley's Scratch Test Action 1- Left post scapular Action 1- Right to AC joint, pain Action 2- Left T4 Action 2- Right to occiput base, T2 with head flexion, pain Action 3- Left T4 Action 3- Right T12, pain PT-OP-F Manual Assessment Start: 01/21/24 08:11 Freq: Status: Active Protocol: Document 01/21/24 10:30 NM (Rec: 01/21/24 13:02 NM [id number]) Manual Assessments Soft Tissue Assessment Soft Tissue Mobility Assessment Atrophy of R paraspinals, upper trapezius compared to LUE. Joint Mobility Assessment Joint Mobility Assessment Decreased passive and active AROM of R shoulder, empty end feel. Anterior humeral position. Worse with abduction , IR, ER. Decreased AC joint space. 1st rib does not appear elevated with CRLF test PT-OP-H Neuro Start: 01/21/24 08:11 Freq: Status: Active Protocol: Document 01/21/24 10:30 NM (Rec: 01/21/24 13:02 NM [id number]) Sensation Evaluation Comments Summary Comments BUE intact to light touch sensation bilaterally PT-OP-J Posture/Palpation/Skin Start: 01/21/24 08:11 Freq: Status: Active Protocol: Document 01/21/24 10:30 NM (Rec: 01/21/24 13:02 NM [id number]) Posture Evaluation Position Standing Head/C-Spine Posture Forward Head T-Spine Posture Rotation Left,Increased Kyphosis Shoulder Posture (L) Rounded,(R) Rounded,(L) Forward,(R) Forward Comments Posture Comments R shoulder slightly elevated, possible R thoracic curve, protraction Palpation Assessment Location R shoulder Palpation Findings Soft Tissue Tightness, Tenderness Palpation Details tenderness at posterior cuff origin and insertion. Tightness at R lat No tenderness at LH biceps PT-OP-K Range of Motion Start: 01/21/24 08:11 Freq: Status: Active Protocol: Document 01/21/24 10:30 NM (Rec: 01/21/24 13:02 NM [id number]) Cervical Spine Range of Motion Cervical Spine Active Degrees Flexion 30 Extension 50 Rotation Left 65 Rotation Right 80 Lateral Flexion Left 45 Lateral Flexion Right 40 ROM Limitations Soft Tissue Tightness Comments No pain Shoulder Goniometric Range of Motion Shoulder Left Flexion 155 Abduction 170 External Rotation at 90 degrees 75 Abduction External Rotation at 0 degrees Abduction 80 Internal Rotation 80 Right AROM Flexion 110 Abduction 70 External Rotation at 0 degrees Abduction 35 Internal Rotation 65 Comments All motions painful Right PROM Flexion 140 Abduction 120 External Rotation at 0 degrees Abduction 80 Comments pain with abduction and ER, end range flexion PT-OP-L Special Tests Start: 01/21/24 08:11 Freq: Status: Active Protocol: Document 01/21/24 10:30 NM (Rec: 01/21/24 13:02 NM [id number]) Special Tests Cervical Spine Special Tests Traction Test Results - Spurling's Test Test Results - Shoulder Special Tests Empty Can Test Results + Comments ER worse than IR External Rotation Lag Sign Test Results + Drop Arm Rotator Cuff Test Results - Elevation Impingement Test Results + PT-OP-M Strength Start: 01/21/24 08:11 Freq: Status: Active Protocol: Document 01/21/24 10:30 NM (Rec: 01/21/24 13:02 NM [id number]) Cervical Spine Strength Cervical Spine Manual Muscle Testing Flexion (C1-2) 4+ Good+ Extension 4+ Good+ Rotation Left 4+ Good+ Rotation Right 4+ Good+ Lateral Flexion Left (C3) 4+ Good+ Lateral Flexion Right (C3) 4+ Good+ Shoulder Strength Shoulder Manual Muscle Testing Left Flexion 4 Good Abduction (C5) 4 Good External Rotation 4 Good Internal Rotation 4 Good Right Flexion 3+ Fair+ Abduction (C5) 3+ Fair+ External Rotation 3+ Fair+ Internal Rotation 3+ Fair+ Comments pain with ER, abd Elbow/Forearm Strength Elbow and Forearm Manual Muscle Testing Left Flexion (C6) 4+ Good+ Extension (C7) 4+ Good+ PT-OP-Q Treatments Start: 01/21/24 08:11 Freq: Status: Active Protocol: Document 02/02/24 13:48 NM (Rec: 02/02/24 14:33 NM [id number]) Therapeutic Exercises Supine Exercises mini band Supine Exercise Name shoulder er with band with flexion Side bilateral Equipment Used single thickness level one band Reps/Minutes 2x8 Comments monitored for pain, crepitus; cued ER for more RC, pain free pectoralis stretch Supine Exercise Name T at 90 deg Side bilateral Equipment Used 1/2 foam roller Reps/Minutes 1x60 Comments reports good stretch, pain free Prone Exercises row Prone Exercise Name trialed in PT; added to HEP Side bilateral Resistance AROM Reps/Minutes 1x10 ea Comments pain free Y overball Side bilateral Equipment Used large green sb Reps/Minutes 1x10 Comments verbal cues for UE position and movement tactile cues at scapula T with elbow bent Side bilateral Equipment Used large green [place] ball Reps/Minutes 1x10 ea Comments Verbal cues to bend elbow, initated with UE straight and trial 1lb not renay Sidelying Exercises external rotation Side right Resistance AROM Equipment Used towel roll Reps/Minutes 1x10 Comments clicking, cued limit ROM to painfree range d/t rotator cuff discomfort abduction Sidelying Exercise Name trialed and d/c Side right Equipment Used PT facilitation of inf glide and long axis distraction Reps/Minutes 1x5 Comments d/c due to crepitus, pain with eccentric lowering flexion Side right Resistance AROM Reps/Minutes 1x10 Comments pain free; post manual; PT facilitating for post scap setting, scap control Standing Exercises wall slide/liftoff Standing Exercise Name R arm sliding up in Fwd flex> lift off with slow eccentric lowering Side right Reps/Minutes 2x10 Comments pain free with eccentric lowering, demos crepitus with flexion (pain free) Manual Therapy Treatment Soft Tissue Mobilization right shoulder Body Location pec, UT/levator scap Mobilization Type Cross-Friction,Rolling, Sustained Pressure Intensity/Depth Moderate Body Position Sidelying Comments Tenderness of R UT/LS, minimal tenderness of pec near coracoid. Trigger point at R UT, did not perform release but improvement in tightness and tenderness with rolling and superficial sustained pressure. Cued for breathing R shoulder Body Location rotator cuff, LH biceps, pec, lat Mobilization Type Cross-Friction,Rolling, Strumming,Sustained Pressure, Trigger Point Release Intensity/Depth Moderate Body Position supine,sidelying Comments Monitored for pain. Demos tenderness of R lat near axilla, R rotator cuff (teres) and pectoralis. Performed trigger point release of R lat and R teres. Improved pain symptoms post mobilization, decreased tightness in rotator cuff Joint Mobilizations GH Joint right GH Direction inf and A-P Grade III Body Position Hooklying Reps/Duration 1x10 Comments monitored for pain. Decreased inferior glide, shoulder supported on towel roll for A- P mobilization. Biased into R shoulder ER during A-P mobilization R 1st rib Direction caudal Grade II Body Position Sidelying Reps/Duration 1x8 Comments Elevated 1st rib, performed prior to mobilization of GHJ. Monitored for pain, less elevated at end of mobilization R AC joint Direction Ant on clavicle, post on scapula Grade II Body Position Sidelying Reps/Duration 1x10 ea Comments Decreased anterior clavicle translation, no pain with mobilization but limited mobility. Improved posterior translation of R scapula posteriorly. Limits overhead movement Self-Care/Home Management Treatment Education Patient Education Home Exercise Program Other Education HEP: shoulder flexion with ER, [place] ball prone row, shoulder flexion lift off from wall Education on thumbs up during lifting for exercise class with pt demonstrating examples for improved understanding after last session with [employer] PT-OP-T Assessment and Plan Start: 01/21/24 08:11 Freq: Status: Active Protocol: Document 02/02/24 13:48 NM (Rec: 02/02/24 14:33 NM [id number]) Physical Therapy Assessment Goals Six Impairment HEP Short Term Goal (STG) Pt will report compliance with HEP at least 2-3x/wk in order to maximize progression with PT STG Duration 6 weeks Liquefier Goal (LTG) Pt will report compliance with HEP at least 3x/wk in order to transition into maintenance program upon discharge from PT LTG Duration 12 weeks Five Impairment strength Impairment R shoulder abduction/ER/ flexion/IR 3+/5 MMT Short Term Goal (STG) Pt will increase R shoulder abduction/flexion/ER/IR strength to at least 4-/5 MMT in order to demonstrate improved shoulder strength during lifting, ADLs STG Duration 6 weeks Prison Goal (LTG) Pt will increase R shoulder abduction/flexion/ER/IR strength to at least 4/5 MMT in order to demonstrate improved shoulder strength during lifting, ADLs LTG Duration 12 weeks Four Impairment AROM Impairment R shoulder abduction 70 deg, R shoulder flexion 110 deg Short Term Goal (STG) Pt will improve R shoulder abduction AROM to at least 90 deg and R shoulder flexion AROM to at least 120 deg in order to demonstrate increased ability to reach overhead during ADLs/IADLs STG Duration 6 weeks Liquefier Goal (LTG) Pt will improve R shoulder abduction AROM to at least 110 deg and R shoulder flexion AROM to at least 135 deg in order to demonstrate increased ability to reach overhead during ADLs/IADLs LTG Duration 12 weeks Three Impairment AROM Impairment R shoulder Apley IR to T12 Short Term Goal (STG) Pt will improve R shoulder Apley IR to at least T10 in order to demonstrate improved R shoulder AROM for dressing STG Duration 6 weeks Prison Goal (LTG) Pt will improve R shoulder Apley IR to at least T8 in order to demonstrate improved R shoulder AROM for dressing LTG Duration 12 weeks Two Impairment AROM Impairment R shoulder Apley ER to occiput Short Term Goal (STG) Pt will improve R shoulder apley ER test to at least T2 without compensation in order to demonstrate improved AROM for grooming and dressing STG Duration 6 weeks Liquefier Goal (LTG) Pt will improve R shoulder apley ER test to at least T4 without compensation in order to demonstrate improved AROM for grooming and dressing LTG Duration 12 weeks One Impairment quickdash Impairment score 37, 59% Short Term Goal (STG) Pt will decrease quickdash score by at least 5% in order to demonstrate improvements in R shoulder pain management and QOL STG Duration 6 weeks Liquefier Goal (LTG) Pt will decrease quickdash score by at least 11% in order to demonstrate improvements in R shoulder pain management and QOL LTG Duration 12 weeks Assessment Summary Assessment Pt tolerated session well and reports decrease in shoulder pain levels post treatment. Emphasis on rotator cuff and periscapular strengthening. Continued prone Y, T, and added row on [place] ball. PT provided tactile and verbal cues for scapular control. Pt able to perform without pain when using short lever arm. However, demos decreased R shoulder mobility globally with abduction, ER, and Y lift off. Trialed wall slide with lift off for eccentric rotator cuff control. Initiated sidelying flexion and external rotation for scapular control , arm elevation. Pt demos increased crepitus, but able to perform flexion without pain during raising and eccentric lowering. Cued to remain within pain free range for sidelying ER. Manual treatment to decrease soft tissue tightness. Pt has tenderness of R lat, likely related to trunk extension compensation for arm elevation . Continues to also have posterior rotator cuff tenderness near teres and axilla. PT educated pt on soft tissue mobilization, HEP and joint protection with exercise classes. Pt would benefit from skilled PT for R shoulder mobility within pain free range, periscapular and rotator cuff strengthening in order to improve activity tolerance and decrease pain symptoms. Physical Therapy Plan Frequency and Duration Frequency of Treatment 2x/Week Duration of treatment (weeks) 12 Plan of Care Start Date 01/21/24 Plan of Care End Date 04/16/24 Therapeutic Interventions Therapeutic Interventions Aquatic Therapy,Coordination Training,Gait Training,Home Exercise Program,Joint Mobilizations,Manual Therapy, Neuromuscular Re-education, Orthotic/Prosthetic Management ,Patient/Caregiver Education, Self-Care/Home Management, Sensory Integration,Soft Tissue Mobilization,Taping, Therapeutic Activities, Therapeutic Exercises Modalities Cold Pack/Ice Massage,Electric Stimulation,Hot Packs, Ultrasound,Vasopneumatic Devices Next Visit Focus/Plan Next Note Type Treatment Note Next Visit Plan Next session: wall lift off, trial row, [place] ball IWTY, scap retraction, sidelying AROM>AAROM, inf glide R shoulder AAROM, periscapular strengthening, open book, cervical spine stretch AROM Manual: grade II-III mobilizations to R shoulder, AC joint, 1st rib; STM to CS, R shoulder, lat, push up plus on wall No grade IV mobilizations
--- NOTE | 2024-02-06 15:49 | PT.OTN ---
Current Diagnoses Other chronic pain (02/06/24) Pain in unspecified shoulder (02/06/24) Physical Therapy Treatment Note PT-OP-A Visit Information Start: 01/21/24 08:11 Freq: Status: Active Protocol: Document 02/06/24 13:03 NM (Rec: 02/06/24 13:47 NM [id number]) Out-Patient Physical Therapy Visit Information Visit Information Visit Type Treatment Note Visit Note KX after 19 visits Visit Start Time 13:04 Visit Stop Time 13:45 Visit Number 5 PT-OP-B Current Condition Start: 01/21/24 08:11 Freq: Status: Active Protocol: Document 01/21/24 10:30 NM (Rec: 01/21/24 13:02 NM [id number]) Current Condition History of Current Condition Onset Date 3-4 months worsening Current Complaints pain, mobility History of Current Condition Pt presents with R shoulder pain that has been progressively worsening. 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 She reports that the pain is debilitating. She performs yoga, pilates, weight training, dancing. Pt has pain with arm elevation, dressing, sleeping (usually sleeps on R side, propped on pillow which leads to less pain), eccentric lowering of arm. She reports pain comes and goes. She has been seeing a chiropractor for pain without relief, every couple of weeks. At this time, not planning to have surgery. Denies neck pain, numbness/ tingling. Has crepitus in shoulder; no reports of locking/stuck. No pain at rest PT-OP-C Subjective Start: 01/21/24 08:11 Freq: Status: Active Protocol: Document 02/06/24 13:03 NM (Rec: 02/06/24 13:47 NM [id number]) OP-PT Subjective Patient Comments Patient Comments Pt reports 2-3/10 in R shoulder today. She has been making a quilt, reports that reaching while making quilt is painful. PT-OP-E Functional Tests Start: 01/21/24 08:11 Freq: Status: Active Protocol: Document 01/21/24 10:30 NM (Rec: 01/21/24 13:02 NM [id number]) Functional Tests Apley's Scratch Test Action 1- Left post scapular Action 1- Right to AC joint, pain Action 2- Left T4 Action 2- Right to occiput base, T2 with head flexion, pain Action 3- Left T4 Action 3- Right T12, pain PT-OP-F Manual Assessment Start: 01/21/24 08:11 Freq: Status: Active Protocol: Document 01/21/24 10:30 NM (Rec: 01/21/24 13:02 NM [id number]) Manual Assessments Soft Tissue Assessment Soft Tissue Mobility Assessment Atrophy of R paraspinals, upper trapezius compared to LUE. Joint Mobility Assessment Joint Mobility Assessment Decreased passive and active AROM of R shoulder, empty end feel. Anterior humeral position. Worse with abduction , IR, ER. Decreased AC joint space. 1st rib does not appear elevated with CRLF test PT-OP-H Neuro Start: 01/21/24 08:11 Freq: Status: Active Protocol: Document 01/21/24 10:30 NM (Rec: 01/21/24 13:02 NM [id number]) Sensation Evaluation Comments Summary Comments BUE intact to light touch sensation bilaterally PT-OP-J Posture/Palpation/Skin Start: 01/21/24 08:11 Freq: Status: Active Protocol: Document 01/21/24 10:30 NM (Rec: 01/21/24 13:02 NM [id number]) Posture Evaluation Position Standing Head/C-Spine Posture Forward Head T-Spine Posture Rotation Left,Increased Kyphosis Shoulder Posture (L) Rounded,(R) Rounded,(L) Forward,(R) Forward Comments Posture Comments R shoulder slightly elevated, possible R thoracic curve, protraction Palpation Assessment Location R shoulder Palpation Findings Soft Tissue Tightness, Tenderness Palpation Details tenderness at posterior cuff origin and insertion. Tightness at R lat No tenderness at LH biceps PT-OP-K Range of Motion Start: 01/21/24 08:11 Freq: Status: Active Protocol: Document 01/21/24 10:30 NM (Rec: 01/21/24 13:02 NM [id number]) Cervical Spine Range of Motion Cervical Spine Active Degrees Flexion 30 Extension 50 Rotation Left 65 Rotation Right 80 Lateral Flexion Left 45 Lateral Flexion Right 40 ROM Limitations Soft Tissue Tightness Comments No pain Shoulder Goniometric Range of Motion Shoulder Left Flexion 155 Abduction 170 External Rotation at 90 degrees 75 Abduction External Rotation at 0 degrees Abduction 80 Internal Rotation 80 Right AROM Flexion 110 Abduction 70 External Rotation at 0 degrees Abduction 35 Internal Rotation 65 Comments All motions painful Right PROM Flexion 140 Abduction 120 External Rotation at 0 degrees Abduction 80 Comments pain with abduction and ER, end range flexion PT-OP-L Special Tests Start: 01/21/24 08:11 Freq: Status: Active Protocol: Document 01/21/24 10:30 NM (Rec: 01/21/24 13:02 NM [id number]) Special Tests Cervical Spine Special Tests Traction Test Results - Spurling's Test Test Results - Shoulder Special Tests Empty Can Test Results + Comments ER worse than IR External Rotation Lag Sign Test Results + Drop Arm Rotator Cuff Test Results - Elevation Impingement Test Results + PT-OP-M Strength Start: 01/21/24 08:11 Freq: Status: Active Protocol: Document 01/21/24 10:30 NM (Rec: 01/21/24 13:02 NM [id number]) Cervical Spine Strength Cervical Spine Manual Muscle Testing Flexion (C1-2) 4+ Good+ Extension 4+ Good+ Rotation Left 4+ Good+ Rotation Right 4+ Good+ Lateral Flexion Left (C3) 4+ Good+ Lateral Flexion Right (C3) 4+ Good+ Shoulder Strength Shoulder Manual Muscle Testing Left Flexion 4 Good Abduction (C5) 4 Good External Rotation 4 Good Internal Rotation 4 Good Right Flexion 3+ Fair+ Abduction (C5) 3+ Fair+ External Rotation 3+ Fair+ Internal Rotation 3+ Fair+ Comments pain with ER, abd Elbow/Forearm Strength Elbow and Forearm Manual Muscle Testing Left Flexion (C6) 4+ Good+ Extension (C7) 4+ Good+ PT-OP-Q Treatments Start: 01/21/24 08:11 Freq: Status: Active Protocol: Document 02/06/24 13:03 NM (Rec: 02/06/24 13:47 NM [id number]) Therapeutic Exercises Supine Exercises serrratus punch Supine Exercise Name trialed in PT Side right Resistance AROM Reps/Minutes 2x10 with brief end range hold Comments pain free, but reports difficult mini band Supine Exercise Name shoulder er with band with flexion Side bilateral Resistance lvl 1 tb Reps/Minutes 2x10 Comments monitored for pain, crepitus; cued ER for more RC, pain free Sidelying Exercises external rotation Side right Resistance AROM Equipment Used towel roll Reps/Minutes 1x10 Comments clicking, cued limit ROM to painfree range d/t rotator cuff discomfort Standing Exercises push up plus Standing Exercise Name straight arm, no push up Side bilateral Resistance AROM Reps/Minutes 1x15 with brief hold Comments PT facilitating scap protract initially pectoral stretch Standing Exercise Name arm at 45 deg Side right Resistance at wall Reps/Minutes 1x60 Comments cuued pain free, gentle stretch; reports good feedback wall slide/liftoff Standing Exercise Name R arm sliding up in Fwd flex> lift off with slow eccentric lowering Side right Resistance AROM Equipment Used with serratus push into wall Reps/Minutes 1x10- end of session, fatigued Comments pain free with eccentric lowering, demos crepitus with flexion (pain free) Manual Therapy Treatment Soft Tissue Mobilization right shoulder Body Location pec, UT/levator scap, biceps, triceps Mobilization Type Cross-Friction,Rolling Intensity/Depth Moderate Body Position Sidelying Comments Decreased tenderness of pec, UT/LS today. Tenderness at biceps and triceps muscle, improved with rolling, cross friction Joint Mobilizations scapular Joint right scapula Direction into adduction and depression, rotation Grade III Body Position Sidelying Reps/Duration 1x10 Comments Monitored for pain GH Joint right GH Direction inf and A-P Grade III Body Position Hooklying Reps/Duration 1x10 Comments Monitored for pain. Decreased inferior glide, shoulder supported on towel roll for A- P mobilization. Biased into R shoulder ER during A-P mobilization R AC joint Direction Ant on clavicle, post on scapula Grade II Body Position Sidelying Reps/Duration 1x10 ea Comments Decreased anterior clavicle translation. Improved posterior translation of R scapula posteriorly. Limits overhead movement, decreased mobility overall Self-Care/Home Management Treatment Education Patient Education Home Exercise Program Other Education HEP: serratus punch in supine PT-OP-T Assessment and Plan Start: 01/21/24 08:11 Freq: Status: Active Protocol: Document 02/06/24 13:03 NM (Rec: 02/06/24 13:47 NM [id number]) Physical Therapy Assessment Goals Six Impairment HEP Short Term Goal (STG) Pt will report compliance with HEP at least 2-3x/wk in order to maximize progression with PT STG Duration 6 weeks Booster Plant Operator Goal (LTG) Pt will report compliance with HEP at least 3x/wk in order to transition into maintenance program upon discharge from PT LTG Duration 12 weeks Five Impairment strength Impairment R shoulder abduction/ER/ flexion/IR 3+/5 MMT Short Term Goal (STG) Pt will increase R shoulder abduction/flexion/ER/IR strength to at least 4-/5 MMT in order to demonstrate improved shoulder strength during lifting, ADLs STG Duration 6 weeks Booster Plant Operator Goal (LTG) Pt will increase R shoulder abduction/flexion/ER/IR strength to at least 4/5 MMT in order to demonstrate improved shoulder strength during lifting, ADLs LTG Duration 12 weeks Four Impairment AROM Impairment R shoulder abduction 70 deg, R shoulder flexion 110 deg Short Term Goal (STG) Pt will improve R shoulder abduction AROM to at least 90 deg and R shoulder flexion AROM to at least 120 deg in order to demonstrate increased ability to reach overhead during ADLs/IADLs STG Duration 6 weeks Mcfp Goal (LTG) Pt will improve R shoulder abduction AROM to at least 110 deg and R shoulder flexion AROM to at least 135 deg in order to demonstrate increased ability to reach overhead during ADLs/IADLs LTG Duration 12 weeks Three Impairment AROM Impairment R shoulder Apley IR to T12 Short Term Goal (STG) Pt will improve R shoulder Apley IR to at least T10 in order to demonstrate improved R shoulder AROM for dressing STG Duration 6 weeks Booster Plant Operator Goal (LTG) Pt will improve R shoulder Apley IR to at least T8 in order to demonstrate improved R shoulder AROM for dressing LTG Duration 12 weeks Two Impairment AROM Impairment R shoulder Apley ER to occiput Short Term Goal (STG) Pt will improve R shoulder apley ER test to at least T2 without compensation in order to demonstrate improved AROM for grooming and dressing STG Duration 6 weeks Booster Plant Operator Goal (LTG) Pt will improve R shoulder apley ER test to at least T4 without compensation in order to demonstrate improved AROM for grooming and dressing LTG Duration 12 weeks One Impairment quickdash Impairment score 37, 59% Short Term Goal (STG) Pt will decrease quickdash score by at least 5% in order to demonstrate improvements in R shoulder pain management and QOL STG Duration 6 weeks Mcfp Goal (LTG) Pt will decrease quickdash score by at least 11% in order to demonstrate improvements in R shoulder pain management and QOL LTG Duration 12 weeks Assessment Summary Assessment Pt tolerated session well. Initiated serratus press and push up plus for increased serratus activation to improve scapulohumeral rhythm. Pt demos improvement in eccentric lowering and scapular control with wall slide; added harder push into wall to activate serratus anterior. Pt reports no shoulder pain at end of session, only fatigue. Manual treatment to improve shoulder mobility. Continues to have limitations in R AC joint, glenohumeral mobility; increased crepitus today, especially with posterior glide mobilization. Pt has 125 deg shoulder flexion and 130 deg shoulder abduction, which is an improvement from IE. Pt would benefit from skilled PT for R shoulder mobility and periscapular/rotator cuff strengthening within pain free range in order to improve activity tolerance and ability to perform ADLs. Physical Therapy Plan Frequency and Duration Frequency of Treatment 2x/Week Duration of treatment (weeks) 12 Plan of Care Start Date 01/21/24 Plan of Care End Date 04/16/24 Therapeutic Interventions Therapeutic Interventions Aquatic Therapy,Coordination Training,Gait Training,Home Exercise Program,Joint Mobilizations,Manual Therapy, Neuromuscular Re-education, Orthotic/Prosthetic Management ,Patient/Caregiver Education, Self-Care/Home Management, Sensory Integration,Soft Tissue Mobilization,Taping, Therapeutic Activities, Therapeutic Exercises Modalities Cold Pack/Ice Massage,Electric Stimulation,Hot Packs, Ultrasound,Vasopneumatic Devices Next Visit Focus/Plan Next Note Type Treatment Note Next Visit Plan Next session: trial 0 deg abd RTC strength, serratus p/u plus, wall lift off with band, trial row with band, review/ progress turkish ball IWTY, scap retraction, sidelying AROM> AAROM, inf glide R shoulder AAROM, periscapular strengthening, open book, cervical spine stretch AROM Manual: grade II-III mobilizations to R shoulder, AC joint, 1st rib; STM to CS, *condense HEP as needed* No grade IV mobilizations
--- NOTE | 2024-02-09 11:14 | PT.OTN ---
Current Diagnoses Other chronic pain (02/09/24) Pain in unspecified shoulder (02/09/24) Physical Therapy Treatment Note PT-OP-A Visit Information Start: 01/21/24 08:11 Freq: Status: Active Protocol: Document 02/09/24 10:34 SP (Rec: 02/09/24 11:37 SP [id number]) Out-Patient Physical Therapy Visit Information Visit Information Visit Type Treatment Note Visit Note KX after 19 visits Visit Start Time 10:34 Visit Stop Time 11:14 Visit Number 6 Number of SALES ADVISORY MANAGER Visits 1 Evaluation Information Evaluation Date 01/21/24 Precautions Precautions osteopenia, possibly osteoporosis PT-OP-B Current Condition Start: 01/21/24 08:11 Freq: Status: Active Protocol: Document 01/21/24 10:30 NM (Rec: 01/21/24 13:02 NM [id number]) Current Condition History of Current Condition Onset Date 3-4 months worsening Current Complaints pain, mobility History of Current Condition Pt presents with R shoulder pain that has been progressively worsening. 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 She reports that the pain is debilitating. She performs yoga, pilates, weight training, dancing. Pt has pain with arm elevation, dressing, sleeping (usually sleeps on R side, propped on pillow which leads to less pain), eccentric lowering of arm. She reports pain comes and goes. She has been seeing a chiropractor for pain without relief, every couple of weeks. At this time, not planning to have surgery. Denies neck pain, numbness/ tingling. Has crepitus in shoulder; no reports of locking/stuck. No pain at rest PT-OP-C Subjective Start: 01/21/24 08:11 Freq: Status: Active Protocol: Document 02/09/24 10:34 SP (Rec: 02/09/24 11:37 SP [id number]) OP-PT Subjective Patient Comments Patient Comments Pt reports did really well after last tx. She mentioned did have some irritation R humeral IR and downsward pressure pushing down paints. PT-OP-E Functional Tests Start: 01/21/24 08:11 Freq: Status: Active Protocol: Document 01/21/24 10:30 NM (Rec: 01/21/24 13:02 NM [id number]) Functional Tests Vivianaey's Scratch Test Action 1- Left post scapular Action 1- Right to AC joint, pain Action 2- Left T4 Action 2- Right to occiput base, T2 with head flexion, pain Action 3- Left T4 Action 3- Right T12, pain PT-OP-F Manual Assessment Start: 01/21/24 08:11 Freq: Status: Active Protocol: Document 01/21/24 10:30 NM (Rec: 01/21/24 13:02 NM [id number]) Manual Assessments Soft Tissue Assessment Soft Tissue Mobility Assessment Atrophy of R paraspinals, upper trapezius compared to LUE. Joint Mobility Assessment Joint Mobility Assessment Decreased passive and active AROM of R shoulder, empty end feel. Anterior humeral position. Worse with abduction , IR, ER. Decreased AC joint space. 1st rib does not appear elevated with CRLF test PT-OP-H Neuro Start: 01/21/24 08:11 Freq: Status: Active Protocol: Document 01/21/24 10:30 NM (Rec: 01/21/24 13:02 NM [id number]) Sensation Evaluation Comments Summary Comments BUE intact to light touch sensation bilaterally PT-OP-J Posture/Palpation/Skin Start: 01/21/24 08:11 Freq: Status: Active Protocol: Document 01/21/24 10:30 NM (Rec: 01/21/24 13:02 NM [id number]) Posture Evaluation Position Standing Head/C-Spine Posture Forward Head T-Spine Posture Rotation Left,Increased Kyphosis Shoulder Posture (L) Rounded,(R) Rounded,(L) Forward,(R) Forward Comments Posture Comments R shoulder slightly elevated, possible R thoracic curve, protraction Palpation Assessment Location R shoulder Palpation Findings Soft Tissue Tightness, Tenderness Palpation Details tenderness at posterior cuff origin and insertion. Tightness at R lat No tenderness at LH biceps PT-OP-K Range of Motion Start: 01/21/24 08:11 Freq: Status: Active Protocol: Document 01/21/24 10:30 NM (Rec: 01/21/24 13:02 NM [id number]) Cervical Spine Range of Motion Cervical Spine Active Degrees Flexion 30 Extension 50 Rotation Left 65 Rotation Right 80 Lateral Flexion Left 45 Lateral Flexion Right 40 ROM Limitations Soft Tissue Tightness Comments No pain Shoulder Goniometric Range of Motion Shoulder Left Flexion 155 Abduction 170 External Rotation at 90 degrees 75 Abduction External Rotation at 0 degrees Abduction 80 Internal Rotation 80 Right AROM Flexion 110 Abduction 70 External Rotation at 0 degrees Abduction 35 Internal Rotation 65 Comments All motions painful Right PROM Flexion 140 Abduction 120 External Rotation at 0 degrees Abduction 80 Comments pain with abduction and ER, end range flexion PT-OP-L Special Tests Start: 01/21/24 08:11 Freq: Status: Active Protocol: Document 01/21/24 10:30 NM (Rec: 01/21/24 13:02 NM [id number]) Special Tests Cervical Spine Special Tests Traction Test Results - Spurling's Test Test Results - Shoulder Special Tests Empty Can Test Results + Comments ER worse than IR External Rotation Lag Sign Test Results + Drop Arm Rotator Cuff Test Results - Elevation Impingement Test Results + PT-OP-M Strength Start: 01/21/24 08:11 Freq: Status: Active Protocol: Document 01/21/24 10:30 NM (Rec: 01/21/24 13:02 NM [id number]) Cervical Spine Strength Cervical Spine Manual Muscle Testing Flexion (C1-2) 4+ Good+ Extension 4+ Good+ Rotation Left 4+ Good+ Rotation Right 4+ Good+ Lateral Flexion Left (C3) 4+ Good+ Lateral Flexion Right (C3) 4+ Good+ Shoulder Strength Shoulder Manual Muscle Testing Left Flexion 4 Good Abduction (C5) 4 Good External Rotation 4 Good Internal Rotation 4 Good Right Flexion 3+ Fair+ Abduction (C5) 3+ Fair+ External Rotation 3+ Fair+ Internal Rotation 3+ Fair+ Comments pain with ER, abd Elbow/Forearm Strength Elbow and Forearm Manual Muscle Testing Left Flexion (C6) 4+ Good+ Extension (C7) 4+ Good+ PT-OP-Q Treatments Start: 01/21/24 08:11 Freq: Status: Active Protocol: Document 02/09/24 10:34 SP (Rec: 02/09/24 11:37 SP [id number]) Therapeutic Exercises Sidelying Exercises external rotation Side right Resistance AROM Equipment Used towel roll Reps/Minutes 1x10 Comments improved reduction clicking with scap retract/depress setting Standing Exercises wall posture /c ER Standing Exercise Name added to HEP Side bilateral Resistance AROM Reps/Minutes 5 SH x5 (10 x10 home) Comments cued TA/NLS, NCS tuck, long axis humeral ER palm fwd- good effort RTC TB Standing Exercise Name added to HEP: ext, ir, er Side right Resistance TB #2 orange (aqua sent home) Reps/Minutes x10 each Comments tactile cues scap set, improved self corrections with crunching. push up plus Standing Exercise Name straight arm, no push up Side bilateral Resistance AROM Reps/Minutes 2 reps with brief hold- challenge maintain FF at 90 deg Comments SALES ADVISORY MANAGER facilitating scap protract initially wall slide/liftoff Standing Exercise Name R arm sliding up in Fwd flex> lift off with slow eccentric lowering Side right Resistance AROM Equipment Used with serratus push into wall Reps/Minutes 1x10- end of session, fatigued Comments pain free with eccentric lowering, demos crepitus with flexion (pain free) Manual Therapy Treatment Soft Tissue Mobilization right shoulder Body Location R pec, biceps, UT, suprasp, SerrAnt Mobilization Type Cross-Friction,Rolling Intensity/Depth Moderate Body Position Sidelying Comments Decreased tenderness of pec. Tenderness at biceps/ distal pec/SA, improved with rolling, cross friction Joint Mobilizations scapular Joint right scapula Direction into adduction and depression, rotation Grade III Body Position Sidelying Reps/Duration 1x10 Comments Monitored for pain, trialed ABD (hold) and ER Self-Care/Home Management Treatment Education Patient Education Body Mechanics,Home Exercise Program,Posture Other Education sort time spent wall posture for seated alignment carryover and use initiated strengthening ext/ER/IR today with reduction crunching reported. PT-OP-T Assessment and Plan Start: 01/21/24 08:11 Freq: Status: Active Protocol: Document 02/09/24 10:34 SP (Rec: 02/09/24 11:37 SP [id number]) Physical Therapy Assessment Goals Six Impairment HEP Short Term Goal (STG) Pt will report compliance with HEP at least 2-3x/wk in order to maximize progression with PT STG Duration 6 weeks Metallurgy Teacher Goal (LTG) Pt will report compliance with HEP at least 3x/wk in order to transition into maintenance program upon discharge from PT LTG Duration 12 weeks Five Impairment strength Impairment R shoulder abduction/ER/ flexion/IR 3+/5 MMT Short Term Goal (STG) Pt will increase R shoulder abduction/flexion/ER/IR strength to at least 4-/5 MMT in order to demonstrate improved shoulder strength during lifting, ADLs STG Duration 6 weeks Metallurgy Teacher Goal (LTG) Pt will increase R shoulder abduction/flexion/ER/IR strength to at least 4/5 MMT in order to demonstrate improved shoulder strength during lifting, ADLs LTG Duration 12 weeks Four Impairment AROM Impairment R shoulder abduction 70 deg, R shoulder flexion 110 deg Short Term Goal (STG) Pt will improve R shoulder abduction AROM to at least 90 deg and R shoulder flexion AROM to at least 120 deg in order to demonstrate increased ability to reach overhead during ADLs/IADLs STG Duration 6 weeks Shelter Goal (LTG) Pt will improve R shoulder abduction AROM to at least 110 deg and R shoulder flexion AROM to at least 135 deg in order to demonstrate increased ability to reach overhead during ADLs/IADLs LTG Duration 12 weeks Three Impairment AROM Impairment R shoulder Apley IR to T12 Short Term Goal (STG) Pt will improve R shoulder Apley IR to at least T10 in order to demonstrate improved R shoulder AROM for dressing STG Duration 6 weeks Shelter Goal (LTG) Pt will improve R shoulder Apley IR to at least T8 in order to demonstrate improved R shoulder AROM for dressing LTG Duration 12 weeks Two Impairment AROM Impairment R shoulder Apley ER to occiput Short Term Goal (STG) Pt will improve R shoulder apley ER test to at least T2 without compensation in order to demonstrate improved AROM for grooming and dressing STG Duration 6 weeks Shelter Goal (LTG) Pt will improve R shoulder apley ER test to at least T4 without compensation in order to demonstrate improved AROM for grooming and dressing LTG Duration 12 weeks One Impairment quickdash Impairment score 37, 59% Short Term Goal (STG) Pt will decrease quickdash score by at least 5% in order to demonstrate improvements in R shoulder pain management and QOL STG Duration 6 weeks Shelter Goal (LTG) Pt will decrease quickdash score by at least 11% in order to demonstrate improvements in R shoulder pain management and QOL LTG Duration 12 weeks Assessment Summary Assessment Pt improved scapular setting retraction/depression corrections on side and standing with reduction in click/crunching in R GHjt with resistance initiated RTC strengthening this tx. Good carryover postural awareness with use of wall to utilize during HEP and sitting at computer, eating, brushing teeth for re-ed scapular positioning ROM comfort reported. Improved awareness end tx. Physical Therapy Plan Frequency and Duration Frequency of Treatment 2x/Week Duration of treatment (weeks) 12 Plan of Care Start Date 01/21/24 Plan of Care End Date 04/16/24 Therapeutic Interventions Therapeutic Interventions Aquatic Therapy,Coordination Training,Gait Training,Home Exercise Program,Joint Mobilizations,Manual Therapy, Neuromuscular Re-education, Orthotic/Prosthetic Management ,Patient/Caregiver Education, Self-Care/Home Management, Sensory Integration,Soft Tissue Mobilization,Taping, Therapeutic Activities, Therapeutic Exercises Modalities Cold Pack/Ice Massage,Electric Stimulation,Hot Packs, Ultrasound,Vasopneumatic Devices Next Visit Focus/Plan Next Note Type Treatment Note Next Visit Plan Review added HEP: trial 0 deg abd RTC strength, IR/ER/ext and wall posture alignment self awareness for corrections . Next tx: serratus p/u plus, wall lift off with band, trial row with band, review/ progress polish ball IWTY, scap retraction, sidelying AROM> AAROM, inf glide R shoulder AAROM, periscapular strengthening, open book, cervical spine stretch AROM Manual: grade II-III mobilizations to R shoulder, AC joint, 1st rib; STM to CS, *condense HEP as needed* No grade IV mobilizations
--- NOTE | 2024-02-13 10:24 | PT.OTN ---
Current Diagnoses Other chronic pain (02/13/24) Pain in unspecified shoulder (02/13/24) Physical Therapy Treatment Note PT-OP-A Visit Information Start: 01/21/24 08:11 Freq: Status: Active Protocol: Document 02/13/24 08:18 NM (Rec: 02/13/24 09:55 NM [id number]) Out-Patient Physical Therapy Visit Information Visit Information Visit Type Treatment Note Visit Start Time 08:19 Visit Stop Time 09:00 Visit Number 7 Evaluation Information Evaluation Date 01/21/24 PT-OP-B Current Condition Start: 01/21/24 08:11 Freq: Status: Active Protocol: Document 01/21/24 10:30 NM (Rec: 01/21/24 13:02 NM [id number]) Current Condition History of Current Condition Onset Date 3-4 months worsening Current Complaints pain, mobility History of Current Condition Pt presents with R shoulder pain that has been progressively worsening. 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 She reports that the pain is debilitating. She performs yoga, pilates, weight training, dancing. Pt has pain with arm elevation, dressing, sleeping (usually sleeps on R side, propped on pillow which leads to less pain), eccentric lowering of arm. She reports pain comes and goes. She has been seeing a chiropractor for pain without relief, every couple of weeks. At this time, not planning to have surgery. Denies neck pain, numbness/ tingling. Has crepitus in shoulder; no reports of locking/stuck. No pain at rest PT-OP-C Subjective Start: 01/21/24 08:11 Freq: Status: Active Protocol: Document 02/13/24 08:18 NM (Rec: 02/13/24 09:55 NM [id number]) OP-PT Subjective Patient Comments Patient Comments Pt reports that she has no pain today. States she has been hanging clothes in her closet, states more mobility without grabbing and pain free. Reports improvement, but states comes and goes PT-OP-E Functional Tests Start: 01/21/24 08:11 Freq: Status: Active Protocol: Document 01/21/24 10:30 NM (Rec: 01/21/24 13:02 NM [id number]) Functional Tests Vivianaey's Scratch Test Action 1- Left post scapular Action 1- Right to AC joint, pain Action 2- Left T4 Action 2- Right to occiput base, T2 with head flexion, pain Action 3- Left T4 Action 3- Right T12, pain PT-OP-F Manual Assessment Start: 01/21/24 08:11 Freq: Status: Active Protocol: Document 01/21/24 10:30 NM (Rec: 01/21/24 13:02 NM [id number]) Manual Assessments Soft Tissue Assessment Soft Tissue Mobility Assessment Atrophy of R paraspinals, upper trapezius compared to LUE. Joint Mobility Assessment Joint Mobility Assessment Decreased passive and active AROM of R shoulder, empty end feel. Anterior humeral position. Worse with abduction , IR, ER. Decreased AC joint space. 1st rib does not appear elevated with CRLF test PT-OP-H Neuro Start: 01/21/24 08:11 Freq: Status: Active Protocol: Document 01/21/24 10:30 NM (Rec: 01/21/24 13:02 NM [id number]) Sensation Evaluation Comments Summary Comments BUE intact to light touch sensation bilaterally PT-OP-J Posture/Palpation/Skin Start: 01/21/24 08:11 Freq: Status: Active Protocol: Document 01/21/24 10:30 NM (Rec: 01/21/24 13:02 NM [id number]) Posture Evaluation Position Standing Head/C-Spine Posture Forward Head T-Spine Posture Rotation Left,Increased Kyphosis Shoulder Posture (L) Rounded,(R) Rounded,(L) Forward,(R) Forward Comments Posture Comments R shoulder slightly elevated, possible R thoracic curve, protraction Palpation Assessment Location R shoulder Palpation Findings Soft Tissue Tightness, Tenderness Palpation Details tenderness at posterior cuff origin and insertion. Tightness at R lat No tenderness at LH biceps PT-OP-K Range of Motion Start: 01/21/24 08:11 Freq: Status: Active Protocol: Document 01/21/24 10:30 NM (Rec: 01/21/24 13:02 NM [id number]) Cervical Spine Range of Motion Cervical Spine Active Degrees Flexion 30 Extension 50 Rotation Left 65 Rotation Right 80 Lateral Flexion Left 45 Lateral Flexion Right 40 ROM Limitations Soft Tissue Tightness Comments No pain Shoulder Goniometric Range of Motion Shoulder Left Flexion 155 Abduction 170 External Rotation at 90 degrees 75 Abduction External Rotation at 0 degrees Abduction 80 Internal Rotation 80 Right AROM Flexion 110 Abduction 70 External Rotation at 0 degrees Abduction 35 Internal Rotation 65 Comments All motions painful Right PROM Flexion 140 Abduction 120 External Rotation at 0 degrees Abduction 80 Comments pain with abduction and ER, end range flexion PT-OP-L Special Tests Start: 01/21/24 08:11 Freq: Status: Active Protocol: Document 01/21/24 10:30 NM (Rec: 01/21/24 13:02 NM [id number]) Special Tests Cervical Spine Special Tests Traction Test Results - Spurling's Test Test Results - Shoulder Special Tests Empty Can Test Results + Comments ER worse than IR External Rotation Lag Sign Test Results + Drop Arm Rotator Cuff Test Results - Elevation Impingement Test Results + PT-OP-M Strength Start: 01/21/24 08:11 Freq: Status: Active Protocol: Document 01/21/24 10:30 NM (Rec: 01/21/24 13:02 NM [id number]) Cervical Spine Strength Cervical Spine Manual Muscle Testing Flexion (C1-2) 4+ Good+ Extension 4+ Good+ Rotation Left 4+ Good+ Rotation Right 4+ Good+ Lateral Flexion Left (C3) 4+ Good+ Lateral Flexion Right (C3) 4+ Good+ Shoulder Strength Shoulder Manual Muscle Testing Left Flexion 4 Good Abduction (C5) 4 Good External Rotation 4 Good Internal Rotation 4 Good Right Flexion 3+ Fair+ Abduction (C5) 3+ Fair+ External Rotation 3+ Fair+ Internal Rotation 3+ Fair+ Comments pain with ER, abd Elbow/Forearm Strength Elbow and Forearm Manual Muscle Testing Left Flexion (C6) 4+ Good+ Extension (C7) 4+ Good+ PT-OP-Q Treatments Start: 01/21/24 08:11 Freq: Status: Active Protocol: Document 02/13/24 08:18 NM (Rec: 02/13/24 09:55 NM [id number]) Therapeutic Exercises Prone Exercises Y overball Prone Exercise Name HEP review Side bilateral Equipment Used large green sb Reps/Minutes 1x5 Comments cues for UE position and movement tactile cues at scap, edu small range T with elbow bent Prone Exercise Name HEP review Side bilateral Equipment Used large green jordanian ball Reps/Minutes 1x5 ea Comments cues to bend elbow Sidelying Exercises external rotation Side right Resistance AROM Equipment Used towel roll Reps/Minutes 1x10 Comments improved reduction clicking with scap retract/depress setting abduction Sidelying Exercise Name re-trialed in PT Side right Equipment Used PT facilitation of inf glide and long axis distraction Reps/Minutes 1x10 Comments pain free, improved glide, less clicking Sitting Exercises inferior glide Sitting Exercise Name added to HEP for prn use Side right Resistance L assisting R Equipment Used arm on table, slightly pushing down on table Reps/Minutes 1x10 Comments pain free; edu on inf glide with abd, for use prn Standing Exercises RTC TB Standing Exercise Name ext, IR, ER Side right Resistance TB #2 orange (aqua sent home) Reps/Minutes 2x10 ea Comments tactile cues scap set, no crepitus today, pain free, increased time Manual Therapy Treatment Soft Tissue Mobilization right shoulder Body Location rotator cuff, pec, biceps, lat Mobilization Type Cross-Friction,Rolling Intensity/Depth Moderate Body Position Sidelying Comments Decreased tenderness of pec. Tenderness at biceps/ distal pec/SA, improved with rolling, cross friction Joint Mobilizations scapular Joint right scapula Direction into adduction and depression, rotation Grade III Body Position Sidelying Reps/Duration 1x10 Comments Monitored for pain, performed with ABD and ER, pain free today GH Joint right GH Direction inf and A-P Grade III Body Position Hooklying Reps/Duration 1x10 Comments Monitored for pain. Decreased inferior glide, shoulder supported on towel roll for A- P mobilization. Biased into R shoulder ER during A-P mobilization. Good feedback with inf glide today, Stretching PT-OP-T Assessment and Plan Start: 01/21/24 08:11 Freq: Status: Active Protocol: Document 02/13/24 08:18 NM (Rec: 02/13/24 09:55 NM [id number]) Physical Therapy Assessment Goals Six Impairment HEP Short Term Goal (STG) Pt will report compliance with HEP at least 2-3x/wk in order to maximize progression with PT STG Duration 6 weeks Senior Living Goal (LTG) Pt will report compliance with HEP at least 3x/wk in order to transition into maintenance program upon discharge from PT LTG Duration 12 weeks Five Impairment strength Impairment R shoulder abduction/ER/ flexion/IR 3+/5 MMT Short Term Goal (STG) Pt will increase R shoulder abduction/flexion/ER/IR strength to at least 4-/5 MMT in order to demonstrate improved shoulder strength during lifting, ADLs STG Duration 6 weeks [employer] Goal (LTG) Pt will increase R shoulder abduction/flexion/ER/IR strength to at least 4/5 MMT in order to demonstrate improved shoulder strength during lifting, ADLs LTG Duration 12 weeks Four Impairment AROM Impairment R shoulder abduction 70 deg, R shoulder flexion 110 deg Short Term Goal (STG) Pt will improve R shoulder abduction AROM to at least 90 deg and R shoulder flexion AROM to at least 120 deg in order to demonstrate increased ability to reach overhead during ADLs/IADLs STG Duration 6 weeks [employer] Goal (LTG) Pt will improve R shoulder abduction AROM to at least 110 deg and R shoulder flexion AROM to at least 135 deg in order to demonstrate increased ability to reach overhead during ADLs/IADLs LTG Duration 12 weeks Three Impairment AROM Impairment R shoulder Apley IR to T12 Short Term Goal (STG) Pt will improve R shoulder Apley IR to at least T10 in order to demonstrate improved R shoulder AROM for dressing STG Duration 6 weeks Senior Living Goal (LTG) Pt will improve R shoulder Apley IR to at least T8 in order to demonstrate improved R shoulder AROM for dressing LTG Duration 12 weeks Two Impairment AROM Impairment R shoulder Apley ER to occiput Short Term Goal (STG) Pt will improve R shoulder apley ER test to at least T2 without compensation in order to demonstrate improved AROM for grooming and dressing STG Duration 6 weeks [employer] Goal (LTG) Pt will improve R shoulder apley ER test to at least T4 without compensation in order to demonstrate improved AROM for grooming and dressing LTG Duration 12 weeks One Impairment quickdash Impairment score 37, 59% Short Term Goal (STG) Pt will decrease quickdash score by at least 5% in order to demonstrate improvements in R shoulder pain management and QOL STG Duration 6 weeks Senior Living Goal (LTG) Pt will decrease quickdash score by at least 11% in order to demonstrate improvements in R shoulder pain management and QOL LTG Duration 12 weeks Assessment Summary Assessment Pt without pain during session with all exercises, demos less crepitus compared to previous sessions. Pt demonstrates improved scapular setting and control during rotator cuff activity. Requires increased time with rotator cuff, fatigues quickly when using correct posture. Requires tactile cues for scapular depression/retraction . Manual treatment to facilitate scapular mobility. Pt demos improved scapular depression/adduction, pain free with long arm abduction today. Educated on self inferior glide for HEP, pt performing without pain or discomfort to assist in inferior glide during R abduction. Reviewed modifications to past HEP with prone periscapular. Educated on smaller range with Y's and T's to reduce symptoms and improve strength/form with shorter lever arm. Pt would benefit from skilled PT for R shoulder mobility and strengthening within pain free range to improve activity tolerance and ability to participate in ADLs with fewer limitations. Physical Therapy Plan Frequency and Duration Frequency of Treatment 2x/Week Duration of treatment (weeks) 12 Plan of Care Start Date 01/21/24 Plan of Care End Date 04/16/24 Therapeutic Interventions Therapeutic Interventions Aquatic Therapy,Coordination Training,Gait Training,Home Exercise Program,Joint Mobilizations,Manual Therapy, Neuromuscular Re-education, Orthotic/Prosthetic Management ,Patient/Caregiver Education, Self-Care/Home Management, Sensory Integration,Soft Tissue Mobilization,Taping, Therapeutic Activities, Therapeutic Exercises Modalities Cold Pack/Ice Massage,Electric Stimulation,Hot Packs, Ultrasound,Vasopneumatic Devices Next Visit Focus/Plan Next Note Type Progress Note Next Visit Plan Cont trial 0 deg abd RTC strength, IR/ER/ext and wall posture alignment self awareness for corrections; lat stretch, review inf glide, periscap Next tx: serratus p/u plus, wall lift off with band, trial row with band, review/ progress jordanian ball IWTY, scap retraction, sidelying AROM> AAROM, inf glide R shoulder AAROM, periscapular strengthening, open book, cervical spine stretch AROM Manual: grade II-III mobilizations to R shoulder, AC joint, 1st rib; STM to CS, *condense HEP as needed* No grade IV mobilizations
--- NOTE | 2024-02-16 14:09 | PT.OTN ---
Current Diagnoses Other chronic pain (02/16/24) Pain in unspecified shoulder (02/16/24) Physical Therapy Treatment Note PT-OP-A Visit Information Start: 01/21/24 08:11 Freq: Status: Active Protocol: Document 02/16/24 09:08 NM (Rec: 02/16/24 09:49 NM [id number]) Out-Patient Physical Therapy Visit Information Visit Information Visit Type Progress Note Visit Start Time 09:08 Visit Stop Time 09:47 Visit Number 8 Evaluation Information Evaluation Date 01/21/24 Precautions Precautions osteopenia, possibly osteoporosis PT-OP-B Current Condition Start: 01/21/24 08:11 Freq: Status: Active Protocol: Document 01/21/24 10:30 NM (Rec: 01/21/24 13:02 NM [id number]) Current Condition History of Current Condition Onset Date 3-4 months worsening Current Complaints pain, mobility History of Current Condition Pt presents with R shoulder pain that has been progressively worsening. 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 She reports that the pain is debilitating. She performs yoga, pilates, weight training, dancing. Pt has pain with arm elevation, dressing, sleeping (usually sleeps on R side, propped on pillow which leads to less pain), eccentric lowering of arm. She reports pain comes and goes. She has been seeing a chiropractor for pain without relief, every couple of weeks. At this time, not planning to have surgery. Denies neck pain, numbness/ tingling. Has crepitus in shoulder; no reports of locking/stuck. No pain at rest PT-OP-C Subjective Start: 01/21/24 08:11 Freq: Status: Active Protocol: Document 02/16/24 09:08 NM (Rec: 02/16/24 09:49 NM [id number]) OP-PT Subjective Patient Comments Patient Comments Pt reports sore, but states less pain. She doesn't feel as good. PT-OP-E Functional Tests Start: 01/21/24 08:11 Freq: Status: Active Protocol: Document 01/21/24 10:30 NM (Rec: 01/21/24 13:02 NM [id number]) Functional Tests Apley's Scratch Test Action 1- Left post scapular Action 1- Right to AC joint, pain Action 2- Left T4 Action 2- Right to occiput base, T2 with head flexion, pain Action 3- Left T4 Action 3- Right T12, pain PT-OP-F Manual Assessment Start: 01/21/24 08:11 Freq: Status: Active Protocol: Document 01/21/24 10:30 NM (Rec: 01/21/24 13:02 NM [id number]) Manual Assessments Soft Tissue Assessment Soft Tissue Mobility Assessment Atrophy of R paraspinals, upper trapezius compared to LUE. Joint Mobility Assessment Joint Mobility Assessment Decreased passive and active AROM of R shoulder, empty end feel. Anterior humeral position. Worse with abduction , IR, ER. Decreased AC joint space. 1st rib does not appear elevated with CRLF test PT-OP-H Neuro Start: 01/21/24 08:11 Freq: Status: Active Protocol: Document 01/21/24 10:30 NM (Rec: 01/21/24 13:02 NM [id number]) Sensation Evaluation Comments Summary Comments BUE intact to light touch sensation bilaterally PT-OP-J Posture/Palpation/Skin Start: 01/21/24 08:11 Freq: Status: Active Protocol: Document 01/21/24 10:30 NM (Rec: 01/21/24 13:02 NM [id number]) Posture Evaluation Position Standing Head/C-Spine Posture Forward Head T-Spine Posture Rotation Left,Increased Kyphosis Shoulder Posture (L) Rounded,(R) Rounded,(L) Forward,(R) Forward Comments Posture Comments R shoulder slightly elevated, possible R thoracic curve, protraction Palpation Assessment Location R shoulder Palpation Findings Soft Tissue Tightness, Tenderness Palpation Details tenderness at posterior cuff origin and insertion. Tightness at R lat No tenderness at LH biceps PT-OP-K Range of Motion Start: 01/21/24 08:11 Freq: Status: Active Protocol: Document 02/16/24 09:08 NM (Rec: 02/16/24 09:49 NM [id number]) Shoulder Goniometric Range of Motion Shoulder Right AROM Flexion 110 Abduction 70 External Rotation at 0 degrees Abduction 35 Internal Rotation 65 Comments All motions painful 02/16/24: 130 flex and abduction, min pain with abduction PT-OP-L Special Tests Start: 01/21/24 08:11 Freq: Status: Active Protocol: Document 01/21/24 10:30 NM (Rec: 01/21/24 13:02 NM [id number]) Special Tests Cervical Spine Special Tests Traction Test Results - Spurling's Test Test Results - Shoulder Special Tests Empty Can Test Results + Comments ER worse than IR External Rotation Lag Sign Test Results + Drop Arm Rotator Cuff Test Results - Elevation Impingement Test Results + PT-OP-M Strength Start: 01/21/24 08:11 Freq: Status: Active Protocol: Document 02/16/24 09:08 NM (Rec: 02/16/24 09:49 NM [id number]) Shoulder Strength Shoulder Manual Muscle Testing Right Flexion 3+ Fair+ Abduction (C5) 3+ Fair+ External Rotation 3+ Fair+ Internal Rotation 3+ Fair+ Comments pain with ER, abd 02/16/24: 4-/5 today PT-OP-Q Treatments Start: 01/21/24 08:11 Freq: Status: Active Protocol: Document 02/16/24 09:08 NM (Rec: 02/16/24 09:49 NM [id number]) Therapeutic Exercises Prone Exercises I Prone Exercise Name bent over table for HEP with ball Side right Resistance 2# Reps/Minutes 1x15 Comments pain free, feels good row Prone Exercise Name bent over for HEP for road trip Side right Resistance 2# Reps/Minutes 1x15 Comments pain free; good form T with elbow bent Prone Exercise Name bent over for HEP for trip Side right Reps/Minutes 1x10 Comments fatiguing; pain free, but pulling posterior arm Standing Exercises lat pull down Standing Exercise Name added to HEP Side bilateral Resistance lvl 3 band Reps/Minutes 1x12 Comments pain free Y lift off Standing Exercise Name trialed in PT, but challenging d/c d/t lack mobility Side right Reps/Minutes 1x3 Comments pinch in superior shoulder, fatiguing RTC TB Standing Exercise Name ext, IR, ER Side right Resistance lvl 3 for ext; lvl 2 for ER/IR Reps/Minutes 1x12 ea Comments tactile cues scap set, no crepitus today, pain free push up plus Standing Exercise Name push with plus on wall Side bilateral Resistance AROM Reps/Minutes 2x5 Comments improved scap protraction but fatiguing Manual Therapy Treatment Soft Tissue Mobilization right shoulder Body Location rotator cuff, pec, biceps, lat Mobilization Type Cross-Friction,Rolling Intensity/Depth Moderate Body Position Sidelying Comments Decreased tenderness of pec. Less tenderness at biceps/ distal pec/SA, improved with rolling, cross friction Joint Mobilizations scapular Joint right scapula Direction into adduction and depression, rotation Grade III Body Position Sidelying Reps/Duration 1x10 Comments Monitored for pain, performed with ABD and ER, pain free today GH Joint right GH Direction inf and A-P Grade III Body Position Hooklying Reps/Duration 1x15 Comments Monitored for pain. Decreased inferior glide, shoulder supported on towel roll for A- P mobilization. Improved gliding today PT-OP-T Assessment and Plan Start: 01/21/24 08:11 Freq: Status: Active Protocol: Document 02/16/24 09:08 NM (Rec: 02/16/24 09:49 NM [id number]) Physical Therapy Assessment Goals Six Impairment HEP Short Term Goal (STG) Pt will report compliance with HEP at least 2-3x/wk in order to maximize progression with PT 02/16/24: states doing every day STG Duration 6 weeks MET [facility] Goal (LTG) Pt will report compliance with HEP at least 3x/wk in order to transition into maintenance program upon discharge from PT LTG Duration 12 weeks Five Impairment strength Impairment R shoulder abduction/ER/ flexion/IR 3+/5 MMT Short Term Goal (STG) Pt will increase R shoulder abduction/flexion/ER/IR strength to at least 4-/5 MMT in order to demonstrate improved shoulder strength during lifting, ADLs 02/16/24: 4-/5 for all, less pain but continues to have pain with abduction STG Duration 6 weeks MET, PROGRESSING [facility] Goal (LTG) Pt will increase R shoulder abduction/flexion/ER/IR strength to at least 4/5 MMT in order to demonstrate improved shoulder strength during lifting, ADLs LTG Duration 12 weeks Four Impairment AROM Impairment R shoulder abduction 70 deg, R shoulder flexion 110 deg Short Term Goal (STG) Pt will improve R shoulder abduction AROM to at least 90 deg and R shoulder flexion AROM to at least 120 deg in order to demonstrate increased ability to reach overhead during ADLs/IADLs 02/16/24: 130 deg flexion w/o pain, 140 deg with scaption, 130 deg abduction STG Duration 6 weeks MET [facility] Goal (LTG) Pt will improve R shoulder abduction AROM to at least 110 deg and R shoulder flexion AROM to at least 135 deg in order to demonstrate increased ability to reach overhead during ADLs/IADLs 02/16/24: 130 deg flexion w/o pain, 140 deg with scaption, 130 deg abduction; demos slight upper trapezius compensation with all LTG Duration 12 weeks MET, PROGRESSING Three Impairment AROM Impairment R shoulder Apley IR to T12 Short Term Goal (STG) Pt will improve R shoulder Apley IR to at least T10 in order to demonstrate improved R shoulder AROM for dressing 02/16/24: T11, painful STG Duration 6 weeks NOT MET [facility] Goal (LTG) Pt will improve R shoulder Apley IR to at least T8 in order to demonstrate improved R shoulder AROM for dressing LTG Duration 12 weeks Two Impairment AROM Impairment R shoulder Apley ER to occiput Short Term Goal (STG) Pt will improve R shoulder apley ER test to at least T2 without compensation in order to demonstrate improved AROM for grooming and dressing 02/16/24: C7, painful STG Duration 6 weeks NOT MET [employer] Goal (LTG) Pt will improve R shoulder apley ER test to at least T4 without compensation in order to demonstrate improved AROM for grooming and dressing LTG Duration 12 weeks One Impairment quickdash Impairment score 37, 59% Short Term Goal (STG) Pt will decrease quickdash score by at least 5% in order to demonstrate improvements in R shoulder pain management and QOL STG Duration 6 weeks [facility] Goal (LTG) Pt will decrease quickdash score by at least 11% in order to demonstrate improvements in R shoulder pain management and QOL LTG Duration 12 weeks Progress Towards Goals Progress Towards Goals Progressing Toward Goals,Goals Met Assessment Summary Assessment Pt tolerated session well. Pain free. Initiated lat pull down and progressed to push up with plus at wall. Pt with improved scapular mobility during push up plus and rotator cuff banded exercises. Demos improved tolerance for activity, less quick to fatigue. Pt also has less trunk rotation compensation with banded ER/IR compared to last session. Manual treatment to improve soft tissue length of R shoulder muscles, much less tenderness and restriction today compared to previous sessions. Continued with scapulothoracic mobilizations to improve scapular mobility and R shoulder glenohumeral mobility with posterior and inferior glides. Pt continues to experience catching of R shoulder joint with mobilization and exercise, but decreased and she reports less painful than at beginning of PT. Physical Therapy Plan Frequency and Duration Frequency of Treatment 2x/Week Duration of treatment (weeks) 12 Plan of Care Start Date 01/21/24 Plan of Care End Date 04/16/24 Therapeutic Interventions Therapeutic Interventions Aquatic Therapy,Coordination Training,Gait Training,Home Exercise Program,Joint Mobilizations,Manual Therapy, Neuromuscular Re-education, Orthotic/Prosthetic Management ,Patient/Caregiver Education, Self-Care/Home Management, Sensory Integration,Soft Tissue Mobilization,Taping, Therapeutic Activities, Therapeutic Exercises Modalities Cold Pack/Ice Massage,Electric Stimulation,Hot Packs, Ultrasound,Vasopneumatic Devices Next Visit Focus/Plan Next Note Type Treatment Note Next Visit Plan Wall Y lift off, rotator cuff, trial banded W, scapular/ periscapular mobility, push up /plank Manual: grade II-III mobilizations to R shoulder, AC joint, 1st rib; STM to CS, *condense HEP as needed* No grade IV mobilizations
--- NOTE | 2024-02-25 12:11 | PT.OTN ---
Current Diagnoses Other chronic pain (02/25/24) Pain in unspecified shoulder (02/25/24) Physical Therapy Treatment Note PT-OP-A Visit Information Start: 01/21/24 08:11 Freq: Status: Active Protocol: Document 02/25/24 09:35 AB (Rec: 02/25/24 12:10 AB [id number]) Out-Patient Physical Therapy Visit Information Visit Information Visit Type Treatment Note Visit Note KX after 19 visits Visit Start Time 11:15 Visit Stop Time 12:02 Visit Number 9 Number of [employer] FOR PULLER OVER Visits 1 Evaluation Information Evaluation Date 01/21/24 Precautions Precautions osteopenia, possibly osteoporosis PT-OP-B Current Condition Start: 01/21/24 08:11 Freq: Status: Active Protocol: Document 01/21/24 10:30 NM (Rec: 01/21/24 13:02 NM [id number]) Current Condition History of Current Condition Onset Date 3-4 months worsening Current Complaints pain, mobility History of Current Condition Pt presents with R shoulder pain that has been progressively worsening. 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 She reports that the pain is debilitating. She performs yoga, pilates, weight training, dancing. Pt has pain with arm elevation, dressing, sleeping (usually sleeps on R side, propped on pillow which leads to less pain), eccentric lowering of arm. She reports pain comes and goes. She has been seeing a chiropractor for pain without relief, every couple of weeks. At this time, not planning to have surgery. Denies neck pain, numbness/ tingling. Has crepitus in shoulder; no reports of locking/stuck. No pain at rest PT-OP-C Subjective Start: 01/21/24 08:11 Freq: Status: Active Protocol: Document 02/25/24 09:35 AB (Rec: 02/25/24 12:10 AB [id number]) OP-PT Subjective Patient Comments Patient Comments Patient reports the shoulder seems great some days, but tweaks now and then. Patient reports today she feels it, the shoulder tweaks with movement. AROM right shoulder scaption 115 deg start of session. PT-OP-E Functional Tests Start: 01/21/24 08:11 Freq: Status: Active Protocol: Document 01/21/24 10:30 NM (Rec: 01/21/24 13:02 NM [id number]) Functional Tests Apley's Scratch Test Action 1- Left post scapular Action 1- Right to AC joint, pain Action 2- Left T4 Action 2- Right to occiput base, T2 with head flexion, pain Action 3- Left T4 Action 3- Right T12, pain PT-OP-F Manual Assessment Start: 01/21/24 08:11 Freq: Status: Active Protocol: Document 01/21/24 10:30 NM (Rec: 01/21/24 13:02 NM [id number]) Manual Assessments Soft Tissue Assessment Soft Tissue Mobility Assessment Atrophy of R paraspinals, upper trapezius compared to LUE. Joint Mobility Assessment Joint Mobility Assessment Decreased passive and active AROM of R shoulder, empty end feel. Anterior humeral position. Worse with abduction , IR, ER. Decreased AC joint space. 1st rib does not appear elevated with CRLF test PT-OP-H Neuro Start: 01/21/24 08:11 Freq: Status: Active Protocol: Document 01/21/24 10:30 NM (Rec: 01/21/24 13:02 NM [id number]) Sensation Evaluation Comments Summary Comments BUE intact to light touch sensation bilaterally PT-OP-J Posture/Palpation/Skin Start: 01/21/24 08:11 Freq: Status: Active Protocol: Document 01/21/24 10:30 NM (Rec: 01/21/24 13:02 NM [id number]) Posture Evaluation Position Standing Head/C-Spine Posture Forward Head T-Spine Posture Rotation Left,Increased Kyphosis Shoulder Posture (L) Rounded,(R) Rounded,(L) Forward,(R) Forward Comments Posture Comments R shoulder slightly elevated, possible R thoracic curve, protraction Palpation Assessment Location R shoulder Palpation Findings Soft Tissue Tightness, Tenderness Palpation Details tenderness at posterior cuff origin and insertion. Tightness at R lat No tenderness at LH biceps PT-OP-K Range of Motion Start: 01/21/24 08:11 Freq: Status: Active Protocol: Document 02/16/24 09:08 NM (Rec: 02/16/24 09:49 NM [id number]) Shoulder Goniometric Range of Motion Shoulder Right AROM Flexion 110 Abduction 70 External Rotation at 0 degrees Abduction 35 Internal Rotation 65 Comments All motions painful 02/16/24: 130 flex and abduction, min pain with abduction PT-OP-L Special Tests Start: 01/21/24 08:11 Freq: Status: Active Protocol: Document 01/21/24 10:30 NM (Rec: 01/21/24 13:02 NM [id number]) Special Tests Cervical Spine Special Tests Traction Test Results - Spurling's Test Test Results - Shoulder Special Tests Empty Can Test Results + Comments ER worse than IR External Rotation Lag Sign Test Results + Drop Arm Rotator Cuff Test Results - Elevation Impingement Test Results + PT-OP-M Strength Start: 01/21/24 08:11 Freq: Status: Active Protocol: Document 02/16/24 09:08 NM (Rec: 02/16/24 09:49 NM [id number]) Shoulder Strength Shoulder Manual Muscle Testing Right Flexion 3+ Fair+ Abduction (C5) 3+ Fair+ External Rotation 3+ Fair+ Internal Rotation 3+ Fair+ Comments pain with ER, abd 02/16/24: 4-/5 today PT-OP-Q Treatments Start: 01/21/24 08:11 Freq: Status: Active Protocol: Document 02/25/24 09:35 AB (Rec: 02/25/24 12:10 AB [id number]) Therapeutic Exercises Supine Exercises Alternating UE flexion on foam roller Supine Exercise Name 1/2 foam roller Side bilateral Reps/Minutes X10 Comments verbal cues mini band Supine Exercise Name shoulder er with band with flexion Side bilateral Resistance lvl 1 tb Reps/Minutes X10 Comments on 1/2 foam roller this session pectoralis stretch Supine Exercise Name T at 90 deg Side bilateral Equipment Used 1/2 foam roller Reps/Minutes 2 minutes Comments post manual therapy Standing Exercises Lat stretch on wall Side right Reps/Minutes x1 Comments monitored for location of sensation of stretch Lat stretch seated Side bilateral Reps/Minutes X1 Comments monitored for location of sensation of stretch Y lift off Standing Exercise Name trialed in PT, but challenging d/c d/t lack mobility Side right Reps/Minutes 1x3 Comments pinch in superior shoulder, fatiguing push up plus Side bilateral Resistance AROM Reps/Minutes trial of X 2 counter height then X10 on wall Other Exercises child's pose Side bilateral Reps/Minutes X3 Comments monitored for location of sensation of stretch Manual Therapy Treatment Soft Tissue Mobilization right shoulder Body Location rotator cuff, pec, biceps, lat Mobilization Type Cross-Friction,Rolling Intensity/Depth Moderate Body Position Sidelying Joint Mobilizations scapular Joint right scapula Direction into adduction and depression, rotation Grade III Body Position Sidelying GH Joint right GH Direction inf and A-P Grade III Body Position Hooklying Reps/Duration 1x12 R 1st rib Direction caudal Grade II Body Position Hooklying Reps/Duration 1x8 R AC joint Direction Ant on clavicle, post on scapula Grade II Body Position Hooklying Reps/Duration 1x10 ea Self-Care/Home Management Treatment Activities Self-Care/Home Management Activities child's pose added to HEP PT-OP-T Assessment and Plan Start: 01/21/24 08:11 Freq: Status: Active Protocol: Document 02/25/24 09:35 AB (Rec: 02/25/24 12:10 AB [id number]) Physical Therapy Assessment Goals Six Impairment HEP Short Term Goal (STG) Pt will report compliance with HEP at least 2-3x/wk in order to maximize progression with PT 02/16/24: states doing every day STG Duration 6 weeks MET [facility] Goal (LTG) Pt will report compliance with HEP at least 3x/wk in order to transition into maintenance program upon discharge from PT LTG Duration 12 weeks Five Impairment strength Impairment R shoulder abduction/ER/ flexion/IR 3+/5 MMT Short Term Goal (STG) Pt will increase R shoulder abduction/flexion/ER/IR strength to at least 4-/5 MMT in order to demonstrate improved shoulder strength during lifting, ADLs 02/16/24: 4-/5 for all, less pain but continues to have pain with abduction STG Duration 6 weeks MET, PROGRESSING [facility] Goal (LTG) Pt will increase R shoulder abduction/flexion/ER/IR strength to at least 4/5 MMT in order to demonstrate improved shoulder strength during lifting, ADLs LTG Duration 12 weeks Four Impairment AROM Impairment R shoulder abduction 70 deg, R shoulder flexion 110 deg Short Term Goal (STG) Pt will improve R shoulder abduction AROM to at least 90 deg and R shoulder flexion AROM to at least 120 deg in order to demonstrate increased ability to reach overhead during ADLs/IADLs 02/16/24: 130 deg flexion w/o pain, 140 deg with scaption, 130 deg abduction STG Duration 6 weeks MET [facility] Goal (LTG) Pt will improve R shoulder abduction AROM to at least 110 deg and R shoulder flexion AROM to at least 135 deg in order to demonstrate increased ability to reach overhead during ADLs/IADLs 02/16/24: 130 deg flexion w/o pain, 140 deg with scaption, 130 deg abduction; demos slight upper trapezius compensation with all LTG Duration 12 weeks MET, PROGRESSING Three Impairment AROM Impairment R shoulder Apley IR to T12 Short Term Goal (STG) Pt will improve R shoulder Apley IR to at least T10 in order to demonstrate improved R shoulder AROM for dressing 02/16/24: T11, painful STG Duration 6 weeks NOT MET [facility] Goal (LTG) Pt will improve R shoulder Apley IR to at least T8 in order to demonstrate improved R shoulder AROM for dressing LTG Duration 12 weeks Two Impairment AROM Impairment R shoulder Apley ER to occiput Short Term Goal (STG) Pt will improve R shoulder apley ER test to at least T2 without compensation in order to demonstrate improved AROM for grooming and dressing 02/16/24: C7, painful STG Duration 6 weeks NOT MET [facility] Goal (LTG) Pt will improve R shoulder apley ER test to at least T4 without compensation in order to demonstrate improved AROM for grooming and dressing LTG Duration 12 weeks One Impairment quickdash Impairment score 37, 59% Short Term Goal (STG) Pt will decrease quickdash score by at least 5% in order to demonstrate improvements in R shoulder pain management and QOL STG Duration 6 weeks [facility] Goal (LTG) Pt will decrease quickdash score by at least 11% in order to demonstrate improvements in R shoulder pain management and QOL LTG Duration 12 weeks Assessment Summary Assessment AROM right shoulder scaption continues to be limited by lat tightness with patient reaching 130 only with back to wall, to 118 without use of wall and post child's pose. Patient reports feeling discomfort in shoulder with standing and seated lat stretch, but does feel a stretch in the area of the lats with child's pose. Patient reports the movement ( scaption) feels much better. Physical Therapy Plan Frequency and Duration Frequency of Treatment 2x/Week Duration of treatment (weeks) 12 Plan of Care Start Date 01/21/24 Plan of Care End Date 04/16/24 Next Visit Focus/Plan Next Note Type Treatment Note Next Visit Plan Wall Y lift off, rotator cuff, trial banded W, scapular/ periscapular mobility, push up /plank Manual: grade II-III mobilizations to R shoulder, AC joint, 1st rib; STM to CS, *condense HEP as needed* No grade IV mobilizations
--- NOTE | 2024-02-27 16:50 | PT.OTN ---
Current Diagnoses Other chronic pain (02/27/24) Pain in unspecified shoulder (02/27/24) Physical Therapy Treatment Note PT-OP-A Visit Information Start: 01/21/24 08:11 Freq: Status: Active Protocol: Document 02/27/24 08:03 AB (Rec: 02/27/24 10:32 AB [id number]) Out-Patient Physical Therapy Visit Information Visit Information Visit Type Treatment Note Visit Note KX after 19 visits 01/03 for PN Access Code [id number] Visit Start Time 09:04 Visit Stop Time 09:46 Visit Number 10 Number of LICENSED BONDSMAN Visits 2 Evaluation Information Evaluation Date 01/21/24 Precautions Precautions osteopenia, possibly osteoporosis PT-OP-B Current Condition Start: 01/21/24 08:11 Freq: Status: Active Protocol: Document 01/21/24 10:30 NM (Rec: 01/21/24 13:02 NM [id number]) Current Condition History of Current Condition Onset Date 3-4 months worsening Current Complaints pain, mobility History of Current Condition Pt presents with R shoulder pain that has been progressively worsening. 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 She reports that the pain is debilitating. She performs yoga, pilates, weight training, dancing. Pt has pain with arm elevation, dressing, sleeping (usually sleeps on R side, propped on pillow which leads to less pain), eccentric lowering of arm. She reports pain comes and goes. She has been seeing a chiropractor for pain without relief, every couple of weeks. At this time, not planning to have surgery. Denies neck pain, numbness/ tingling. Has crepitus in shoulder; no reports of locking/stuck. No pain at rest PT-OP-C Subjective Start: 01/21/24 08:11 Freq: Status: Active Protocol: Document 02/27/24 08:03 AB (Rec: 02/27/24 10:32 AB [id number]) OP-PT Subjective Patient Comments Patient Comments Patient reports having more ease with movement, but does still get the grabby feeling. Patient reports she was able to gingerly reach her clothes that were hung on the shower curtian vianney. AROM right shoulder flexion 120 deg. PT-OP-E Functional Tests Start: 01/21/24 08:11 Freq: Status: Active Protocol: Document 01/21/24 10:30 NM (Rec: 01/21/24 13:02 NM [id number]) Functional Tests Apley's Scratch Test Action 1- Left post scapular Action 1- Right to AC joint, pain Action 2- Left T4 Action 2- Right to occiput base, T2 with head flexion, pain Action 3- Left T4 Action 3- Right T12, pain PT-OP-F Manual Assessment Start: 01/21/24 08:11 Freq: Status: Active Protocol: Document 01/21/24 10:30 NM (Rec: 01/21/24 13:02 NM [id number]) Manual Assessments Soft Tissue Assessment Soft Tissue Mobility Assessment Atrophy of R paraspinals, upper trapezius compared to LUE. Joint Mobility Assessment Joint Mobility Assessment Decreased passive and active AROM of R shoulder, empty end feel. Anterior humeral position. Worse with abduction , IR, ER. Decreased AC joint space. 1st rib does not appear elevated with CRLF test PT-OP-H Neuro Start: 01/21/24 08:11 Freq: Status: Active Protocol: Document 01/21/24 10:30 NM (Rec: 01/21/24 13:02 NM [id number]) Sensation Evaluation Comments Summary Comments BUE intact to light touch sensation bilaterally PT-OP-J Posture/Palpation/Skin Start: 01/21/24 08:11 Freq: Status: Active Protocol: Document 01/21/24 10:30 NM (Rec: 01/21/24 13:02 NM [id number]) Posture Evaluation Position Standing Head/C-Spine Posture Forward Head T-Spine Posture Rotation Left,Increased Kyphosis Shoulder Posture (L) Rounded,(R) Rounded,(L) Forward,(R) Forward Comments Posture Comments R shoulder slightly elevated, possible R thoracic curve, protraction Palpation Assessment Location R shoulder Palpation Findings Soft Tissue Tightness, Tenderness Palpation Details tenderness at posterior cuff origin and insertion. Tightness at R lat No tenderness at LH biceps PT-OP-K Range of Motion Start: 01/21/24 08:11 Freq: Status: Active Protocol: Document 02/16/24 09:08 NM (Rec: 02/16/24 09:49 NM [id number]) Shoulder Goniometric Range of Motion Shoulder Right AROM Flexion 110 Abduction 70 External Rotation at 0 degrees Abduction 35 Internal Rotation 65 Comments All motions painful 02/16/24: 130 flex and abduction, min pain with abduction PT-OP-L Special Tests Start: 01/21/24 08:11 Freq: Status: Active Protocol: Document 01/21/24 10:30 NM (Rec: 01/21/24 13:02 NM [id number]) Special Tests Cervical Spine Special Tests Traction Test Results - Spurling's Test Test Results - Shoulder Special Tests Empty Can Test Results + Comments ER worse than IR External Rotation Lag Sign Test Results + Drop Arm Rotator Cuff Test Results - Elevation Impingement Test Results + PT-OP-M Strength Start: 01/21/24 08:11 Freq: Status: Active Protocol: Document 02/16/24 09:08 NM (Rec: 02/16/24 09:49 NM [id number]) Shoulder Strength Shoulder Manual Muscle Testing Right Flexion 3+ Fair+ Abduction (C5) 3+ Fair+ External Rotation 3+ Fair+ Internal Rotation 3+ Fair+ Comments pain with ER, abd 02/16/24: 4-/5 today PT-OP-Q Treatments Start: 01/21/24 08:11 Freq: Status: Active Protocol: Document 02/27/24 08:03 AB (Rec: 02/27/24 10:32 AB [id number]) Therapeutic Exercises Supine Exercises mini band Supine Exercise Name shoulder er with band with flexion Side bilateral Resistance lvl 1 tb Reps/Minutes X10 Sidelying Exercises internal shoulder rotation Sidelying Exercise Name AROM Reps/Minutes X10 Comments verbal and tactile cues external rotation Side right Resistance AROM Equipment Used towel roll Reps/Minutes 1x10 Standing Exercises Row Standing Exercise Name with elbows extended and with elbows flexed Reps/Minutes 15X2 lat pull down Standing Exercise Name added to HEP Side bilateral Resistance lvl 3 band Reps/Minutes 1x15 Comments pain free Manual Therapy Treatment Soft Tissue Mobilization right shoulder Body Location rotator cuff, pec, lat, UT, levator scap Mobilization Type Cross-Friction,Rolling Intensity/Depth Moderate Body Position Sidelying Joint Mobilizations scapular Joint right scapula Direction into adduction and depression, rotation Grade III Body Position Sidelying GH Joint right GH Direction inf and A-P Grade III Body Position Hooklying Reps/Duration X10 AP X 5 inf R AC joint Direction Ant on clavicle, post on scapula Grade II Body Position Hooklying Reps/Duration 1x10 ea PT-OP-T Assessment and Plan Start: 01/21/24 08:11 Freq: Status: Active Protocol: Document 02/27/24 08:03 AB (Rec: 02/27/24 10:32 AB [id number]) Physical Therapy Assessment Goals Six Impairment HEP Short Term Goal (STG) Pt will report compliance with HEP at least 2-3x/wk in order to maximize progression with PT 02/16/24: states doing every day STG Duration 6 weeks MET Intermediate Goal (LTG) Pt will report compliance with HEP at least 3x/wk in order to transition into maintenance program upon discharge from PT LTG Duration 12 weeks Five Impairment strength Impairment R shoulder abduction/ER/ flexion/IR 3+/5 MMT Short Term Goal (STG) Pt will increase R shoulder abduction/flexion/ER/IR strength to at least 4-/5 MMT in order to demonstrate improved shoulder strength during lifting, ADLs 02/16/24: 4-/5 for all, less pain but continues to have pain with abduction STG Duration 6 weeks MET, PROGRESSING Intermediate Goal (LTG) Pt will increase R shoulder abduction/flexion/ER/IR strength to at least 4/5 MMT in order to demonstrate improved shoulder strength during lifting, ADLs LTG Duration 12 weeks Four Impairment AROM Impairment R shoulder abduction 70 deg, R shoulder flexion 110 deg Short Term Goal (STG) Pt will improve R shoulder abduction AROM to at least 90 deg and R shoulder flexion AROM to at least 120 deg in order to demonstrate increased ability to reach overhead during ADLs/IADLs 02/16/24: 130 deg flexion w/o pain, 140 deg with scaption, 130 deg abduction STG Duration 6 weeks MET Intermediate Goal (LTG) Pt will improve R shoulder abduction AROM to at least 110 deg and R shoulder flexion AROM to at least 135 deg in order to demonstrate increased ability to reach overhead during ADLs/IADLs 02/16/24: 130 deg flexion w/o pain, 140 deg with scaption, 130 deg abduction; demos slight upper trapezius compensation with all LTG Duration 12 weeks MET, PROGRESSING Three Impairment AROM Impairment R shoulder Apley IR to T12 Short Term Goal (STG) Pt will improve R shoulder Apley IR to at least T10 in order to demonstrate improved R shoulder AROM for dressing 02/16/24: T11, painful STG Duration 6 weeks NOT MET Vegetable Preparer Goal (LTG) Pt will improve R shoulder Apley IR to at least T8 in order to demonstrate improved R shoulder AROM for dressing LTG Duration 12 weeks Two Impairment AROM Impairment R shoulder Apley ER to occiput Short Term Goal (STG) Pt will improve R shoulder apley ER test to at least T2 without compensation in order to demonstrate improved AROM for grooming and dressing 02/16/24: C7, painful STG Duration 6 weeks NOT MET Intermediate Goal (LTG) Pt will improve R shoulder apley ER test to at least T4 without compensation in order to demonstrate improved AROM for grooming and dressing LTG Duration 12 weeks One Impairment quickdash Impairment score 37, 59% Short Term Goal (STG) Pt will decrease quickdash score by at least 5% in order to demonstrate improvements in R shoulder pain management and QOL STG Duration 6 weeks Intermediate Goal (LTG) Pt will decrease quickdash score by at least 11% in order to demonstrate improvements in R shoulder pain management and QOL LTG Duration 12 weeks Assessment Summary Assessment AROM right shoulder flexion 125 end of session with a pull when lowering UE instead of pain Physical Therapy Plan Frequency and Duration Frequency of Treatment 2x/Week Duration of treatment (weeks) 12 Plan of Care Start Date 01/21/24 Plan of Care End Date 04/16/24 Next Visit Focus/Plan Next Note Type Treatment Note Next Visit Plan Wall Y lift off, rotator cuff, trial banded W, scapular/ periscapular mobility, push up /plank Manual: grade II-III mobilizations to R shoulder, AC joint, 1st rib; STM to CS, *condense HEP as needed* No grade IV mobilizations
--- NOTE | 2024-03-01 12:45 | PT.OTN ---
Current Diagnoses Other chronic pain (03/01/24) Pain in unspecified shoulder (03/01/24) Physical Therapy Treatment Note PT-OP-A Visit Information Start: 01/21/24 08:11 Freq: Status: Active Protocol: Document 03/01/24 08:10 AB (Rec: 03/01/24 09:02 AB [id number]) Out-Patient Physical Therapy Visit Information Visit Information Visit Type Treatment Note Visit Note KX after 19 visits 02/03 for PN Access Code [id number] Visit Start Time 08:16 Visit Stop Time 09:00 Visit Number 11 Number of SKIN THERAPIST Visits 3 Evaluation Information Evaluation Date 01/21/24 Precautions Precautions osteopenia, possibly osteoporosis PT-OP-B Current Condition Start: 01/21/24 08:11 Freq: Status: Active Protocol: Document 01/21/24 10:30 NM (Rec: 01/21/24 13:02 NM [id number]) Current Condition History of Current Condition Onset Date 3-4 months worsening Current Complaints pain, mobility History of Current Condition Pt presents with R shoulder pain that has been progressively worsening. 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 She reports that the pain is debilitating. She performs yoga, pilates, weight training, dancing. Pt has pain with arm elevation, dressing, sleeping (usually sleeps on R side, propped on pillow which leads to less pain), eccentric lowering of arm. She reports pain comes and goes. She has been seeing a chiropractor for pain without relief, every couple of weeks. At this time, not planning to have surgery. Denies neck pain, numbness/ tingling. Has crepitus in shoulder; no reports of locking/stuck. No pain at rest PT-OP-C Subjective Start: 01/21/24 08:11 Freq: Status: Active Protocol: Document 03/01/24 08:10 AB (Rec: 03/01/24 09:02 AB [id number]) OP-PT Subjective Patient Comments Patient Comments Patient reports she is sore today. Patient reports she did her exercises and her daily activities, laundry, mopping, cooking, sewing over the weekend. Patient gestures to ant sub deltoid area and scapula as areas of increased pain. AROM right shoulder flexion 122 deg start of session. PT-OP-E Functional Tests Start: 01/21/24 08:11 Freq: Status: Active Protocol: Document 01/21/24 10:30 NM (Rec: 01/21/24 13:02 NM [id number]) Functional Tests Apley's Scratch Test Action 1- Left post scapular Action 1- Right to AC joint, pain Action 2- Left T4 Action 2- Right to occiput base, T2 with head flexion, pain Action 3- Left T4 Action 3- Right T12, pain PT-OP-F Manual Assessment Start: 01/21/24 08:11 Freq: Status: Active Protocol: Document 01/21/24 10:30 NM (Rec: 01/21/24 13:02 NM [id number]) Manual Assessments Soft Tissue Assessment Soft Tissue Mobility Assessment Atrophy of R paraspinals, upper trapezius compared to LUE. Joint Mobility Assessment Joint Mobility Assessment Decreased passive and active AROM of R shoulder, empty end feel. Anterior humeral position. Worse with abduction , IR, ER. Decreased AC joint space. 1st rib does not appear elevated with CRLF test PT-OP-H Neuro Start: 01/21/24 08:11 Freq: Status: Active Protocol: Document 01/21/24 10:30 NM (Rec: 01/21/24 13:02 NM [id number]) Sensation Evaluation Comments Summary Comments BUE intact to light touch sensation bilaterally PT-OP-J Posture/Palpation/Skin Start: 01/21/24 08:11 Freq: Status: Active Protocol: Document 01/21/24 10:30 NM (Rec: 01/21/24 13:02 NM [id number]) Posture Evaluation Position Standing Head/C-Spine Posture Forward Head T-Spine Posture Rotation Left,Increased Kyphosis Shoulder Posture (L) Rounded,(R) Rounded,(L) Forward,(R) Forward Comments Posture Comments R shoulder slightly elevated, possible R thoracic curve, protraction Palpation Assessment Location R shoulder Palpation Findings Soft Tissue Tightness, Tenderness Palpation Details tenderness at posterior cuff origin and insertion. Tightness at R lat No tenderness at LH biceps PT-OP-K Range of Motion Start: 01/21/24 08:11 Freq: Status: Active Protocol: Document 02/16/24 09:08 NM (Rec: 02/16/24 09:49 NM [id number]) Shoulder Goniometric Range of Motion Shoulder Right AROM Flexion 110 Abduction 70 External Rotation at 0 degrees Abduction 35 Internal Rotation 65 Comments All motions painful 02/16/24: 130 flex and abduction, min pain with abduction PT-OP-L Special Tests Start: 01/21/24 08:11 Freq: Status: Active Protocol: Document 01/21/24 10:30 NM (Rec: 01/21/24 13:02 NM [id number]) Special Tests Cervical Spine Special Tests Traction Test Results - Spurling's Test Test Results - Shoulder Special Tests Empty Can Test Results + Comments ER worse than IR External Rotation Lag Sign Test Results + Drop Arm Rotator Cuff Test Results - Elevation Impingement Test Results + PT-OP-M Strength Start: 01/21/24 08:11 Freq: Status: Active Protocol: Document 02/16/24 09:08 NM (Rec: 02/16/24 09:49 NM [id number]) Shoulder Strength Shoulder Manual Muscle Testing Right Flexion 3+ Fair+ Abduction (C5) 3+ Fair+ External Rotation 3+ Fair+ Internal Rotation 3+ Fair+ Comments pain with ER, abd 02/16/24: 4-/5 today PT-OP-Q Treatments Start: 01/21/24 08:11 Freq: Status: Active Protocol: Document 03/01/24 08:10 AB (Rec: 03/01/24 09:02 AB [id number]) Therapeutic Exercises Supine Exercises serrratus punch Side bilateral Resistance 1lb Reps/Minutes 2x10 with brief end range hold mini band Supine Exercise Name shoulder er with band with flexion Side bilateral Resistance lvl 1 tb Reps/Minutes X10 Sidelying Exercises open book Side bilateral Reps/Minutes X5 each side Comments verbal and tactile cues internal shoulder rotation Sidelying Exercise Name AROM Reps/Minutes X15 Comments verbal and tactile cues external rotation Side right Resistance AROM Equipment Used towel roll Reps/Minutes 1x15 Standing Exercises counter plank on forearms Side bilateral Reps/Minutes X1 one minute scapular depression Resistance orange band Reps/Minutes X10 Other Exercises child's pose Side bilateral Reps/Minutes X3 ( X 1 to left , X 2 centered) Comments monitored for location of sensation of stretch Manual Therapy Treatment Soft Tissue Mobilization right shoulder Body Location rotator cuff, pec, lat, UT, levator scap Mobilization Type Cross-Friction,Rolling Intensity/Depth Moderate Body Position Sidelying Comments and supine Joint Mobilizations scapular Joint right scapula Direction into adduction and depression, rotation Grade III Body Position Sidelying GH Joint right GH Direction inf and A-P Grade III Body Position Hooklying Reps/Duration X10 AP X 5 inf PT-OP-T Assessment and Plan Start: 01/21/24 08:11 Freq: Status: Active Protocol: Document 03/01/24 08:10 AB (Rec: 03/01/24 09:02 AB [id number]) Physical Therapy Assessment Goals Six Impairment HEP Short Term Goal (STG) Pt will report compliance with HEP at least 2-3x/wk in order to maximize progression with PT 02/16/24: states doing every day STG Duration 6 weeks MET Long-Term Goal (LTG) Pt will report compliance with HEP at least 3x/wk in order to transition into maintenance program upon discharge from PT LTG Duration 12 weeks Five Impairment strength Impairment R shoulder abduction/ER/ flexion/IR 3+/5 MMT Short Term Goal (STG) Pt will increase R shoulder abduction/flexion/ER/IR strength to at least 4-/5 MMT in order to demonstrate improved shoulder strength during lifting, ADLs 02/16/24: 4-/5 for all, less pain but continues to have pain with abduction STG Duration 6 weeks MET, PROGRESSING Long-Term Goal (LTG) Pt will increase R shoulder abduction/flexion/ER/IR strength to at least 4/5 MMT in order to demonstrate improved shoulder strength during lifting, ADLs LTG Duration 12 weeks Four Impairment AROM Impairment R shoulder abduction 70 deg, R shoulder flexion 110 deg Short Term Goal (STG) Pt will improve R shoulder abduction AROM to at least 90 deg and R shoulder flexion AROM to at least 120 deg in order to demonstrate increased ability to reach overhead during ADLs/IADLs 02/16/24: 130 deg flexion w/o pain, 140 deg with scaption, 130 deg abduction STG Duration 6 weeks MET Long-Term Goal (LTG) Pt will improve R shoulder abduction AROM to at least 110 deg and R shoulder flexion AROM to at least 135 deg in order to demonstrate increased ability to reach overhead during ADLs/IADLs 02/16/24: 130 deg flexion w/o pain, 140 deg with scaption, 130 deg abduction; demos slight upper trapezius compensation with all LTG Duration 12 weeks MET, PROGRESSING Three Impairment AROM Impairment R shoulder Apley IR to T12 Short Term Goal (STG) Pt will improve R shoulder Apley IR to at least T10 in order to demonstrate improved R shoulder AROM for dressing 02/16/24: T11, painful STG Duration 6 weeks NOT MET Long-Term Goal (LTG) Pt will improve R shoulder Apley IR to at least T8 in order to demonstrate improved R shoulder AROM for dressing LTG Duration 12 weeks Two Impairment AROM Impairment R shoulder Apley ER to occiput Short Term Goal (STG) Pt will improve R shoulder apley ER test to at least T2 without compensation in order to demonstrate improved AROM for grooming and dressing 02/16/24: C7, painful STG Duration 6 weeks NOT MET Seaming Inspector Goal (LTG) Pt will improve R shoulder apley ER test to at least T4 without compensation in order to demonstrate improved AROM for grooming and dressing LTG Duration 12 weeks One Impairment quickdash Impairment score 37, 59% Short Term Goal (STG) Pt will decrease quickdash score by at least 5% in order to demonstrate improvements in R shoulder pain management and QOL STG Duration 6 weeks Long-Term Goal (LTG) Pt will decrease quickdash score by at least 11% in order to demonstrate improvements in R shoulder pain management and QOL LTG Duration 12 weeks Assessment Summary Assessment AROM right shoulder flexion 124 deg end of session, with patient reporting feeling fine . Physical Therapy Plan Frequency and Duration Frequency of Treatment 2x/Week Duration of treatment (weeks) 12 Plan of Care Start Date 01/21/24 Plan of Care End Date 04/16/24 Next Visit Focus/Plan Next Note Type Treatment Note Next Visit Plan Wall Y lift off, rotator cuff, trial banded W, scapular/ periscapular mobility, push up /plank(counter plank on forearms, scapular depression to HEP possibly) Manual: grade II-III mobilizations to R shoulder, AC joint, 1st rib; STM to CS, *condense HEP as needed* No grade IV mobilizations
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
--- NOTE | 2024-03-08 10:24 | PT.OTN ---
Current Diagnoses Other chronic pain (03/08/24) Pain in unspecified shoulder (03/08/24) Physical Therapy Treatment Note PT-OP-A Visit Information Start: 01/21/24 08:11 Freq: Status: Active Protocol: Document 03/08/24 07:30 NM (Rec: 03/08/24 08:17 NM [id number]) Out-Patient Physical Therapy Visit Information Visit Information Visit Type Treatment Note Visit Note KX after 19 visits 5/10 for PN Visit Start Time 07:32 Visit Stop Time 08:15 Visit Number 13 Evaluation Information Evaluation Date 01/21/24 Precautions Precautions osteopenia, possibly osteoporosis PT-OP-B Current Condition Start: 01/21/24 08:11 Freq: Status: Active Protocol: Document 01/21/24 10:30 NM (Rec: 01/21/24 13:02 NM [id number]) Current Condition History of Current Condition Onset Date 3-4 months worsening Current Complaints pain, mobility History of Current Condition Pt presents with R shoulder pain that has been progressively worsening. 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 She reports that the pain is debilitating. She performs yoga, pilates, weight training, dancing. Pt has pain with arm elevation, dressing, sleeping (usually sleeps on R side, propped on pillow which leads to less pain), eccentric lowering of arm. She reports pain comes and goes. She has been seeing a chiropractor for pain without relief, every couple of weeks. At this time, not planning to have surgery. Denies neck pain, numbness/ tingling. Has crepitus in shoulder; no reports of locking/stuck. No pain at rest PT-OP-C Subjective Start: 01/21/24 08:11 Freq: Status: Active Protocol: Document 03/08/24 07:30 NM (Rec: 03/08/24 08:17 NM [id number]) OP-PT Subjective Patient Comments Patient Comments Pt reports shoulder is off and on, states today is doing well. Reports that exercises are going well, occasional pain with R shoulder IR with band; states less discomfort with banded flexion in supine PT-OP-E Functional Tests Start: 01/21/24 08:11 Freq: Status: Active Protocol: Document 01/21/24 10:30 NM (Rec: 01/21/24 13:02 NM [id number]) Functional Tests Apley's Scratch Test Action 1- Left post scapular Action 1- Right to AC joint, pain Action 2- Left T4 Action 2- Right to occiput base, T2 with head flexion, pain Action 3- Left T4 Action 3- Right T12, pain PT-OP-F Manual Assessment Start: 01/21/24 08:11 Freq: Status: Active Protocol: Document 01/21/24 10:30 NM (Rec: 01/21/24 13:02 NM [id number]) Manual Assessments Soft Tissue Assessment Soft Tissue Mobility Assessment Atrophy of R paraspinals, upper trapezius compared to LUE. Joint Mobility Assessment Joint Mobility Assessment Decreased passive and active AROM of R shoulder, empty end feel. Anterior humeral position. Worse with abduction , IR, ER. Decreased AC joint space. 1st rib does not appear elevated with CRLF test PT-OP-H Neuro Start: 01/21/24 08:11 Freq: Status: Active Protocol: Document 01/21/24 10:30 NM (Rec: 01/21/24 13:02 NM [id number]) Sensation Evaluation Comments Summary Comments BUE intact to light touch sensation bilaterally PT-OP-J Posture/Palpation/Skin Start: 01/21/24 08:11 Freq: Status: Active Protocol: Document 01/21/24 10:30 NM (Rec: 01/21/24 13:02 NM [id number]) Posture Evaluation Position Standing Head/C-Spine Posture Forward Head T-Spine Posture Rotation Left,Increased Kyphosis Shoulder Posture (L) Rounded,(R) Rounded,(L) Forward,(R) Forward Comments Posture Comments R shoulder slightly elevated, possible R thoracic curve, protraction Palpation Assessment Location R shoulder Palpation Findings Soft Tissue Tightness, Tenderness Palpation Details tenderness at posterior cuff origin and insertion. Tightness at R lat No tenderness at LH biceps PT-OP-K Range of Motion Start: 01/21/24 08:11 Freq: Status: Active Protocol: Document 02/16/24 09:08 NM (Rec: 02/16/24 09:49 NM [id number]) Shoulder Goniometric Range of Motion Shoulder Right AROM Flexion 110 Abduction 70 External Rotation at 0 degrees Abduction 35 Internal Rotation 65 Comments All motions painful 02/16/24: 130 flex and abduction, min pain with abduction PT-OP-L Special Tests Start: 01/21/24 08:11 Freq: Status: Active Protocol: Document 01/21/24 10:30 NM (Rec: 01/21/24 13:02 NM [id number]) Special Tests Cervical Spine Special Tests Traction Test Results - Spurling's Test Test Results - Shoulder Special Tests Empty Can Test Results + Comments ER worse than IR External Rotation Lag Sign Test Results + Drop Arm Rotator Cuff Test Results - Elevation Impingement Test Results + PT-OP-M Strength Start: 01/21/24 08:11 Freq: Status: Active Protocol: Document 02/16/24 09:08 NM (Rec: 02/16/24 09:49 NM [id number]) Shoulder Strength Shoulder Manual Muscle Testing Right Flexion 3+ Fair+ Abduction (C5) 3+ Fair+ External Rotation 3+ Fair+ Internal Rotation 3+ Fair+ Comments pain with ER, abd 02/16/24: 4-/5 today PT-OP-Q Treatments Start: 01/21/24 08:11 Freq: Status: Active Protocol: Document 03/08/24 07:30 NM (Rec: 03/08/24 08:17 NM [id number]) Therapeutic Exercises Standing Exercises closed chain rotator cuff Standing Exercise Name banded wall walks Side bilateral Resistance lvl 1 tb around forearms Equipment Used wall at chest height w/ post scap setting for form Reps/Minutes 2x5 ft Comments pain free, fatiguing; cued rest btwn sets serratus slide Standing Exercise Name hand into ER Side right Resistance staggered stance Equipment Used pillow case around hand Reps/Minutes 2x5 Comments cued for rest between sets Y lift off Standing Exercise Name 90/90 goal post > Y position 120 deg Side right Resistance AROM Equipment Used trialed lift off of wall from position, but unable to lift off Reps/Minutes 1x8 Comments hard, pain free but unable to lift off push up plus Standing Exercise Name HEP review per pt request w/ small push up at wall Side bilateral Resistance AROM Reps/Minutes 1x8 Comments cued for form, push into wall w/ hand pectoral stretch Standing Exercise Name arm at 90 deg w/ elbow straight Side right Resistance at wall Reps/Minutes 1x30 Comments pain free, but fatiguing at end of session wall slide/liftoff Standing Exercise Name R arm sliding up in Fwd flex> lift off with slow eccentric lowering Side right Resistance AROM Equipment Used with serratus push into wall Reps/Minutes 1x5 HEP review per pt request Comments pain free with eccentric lowering Other Exercises child's pose Side bilateral Reps/Minutes 1x30 Comments unable to lift hand up Manual Therapy Treatment Soft Tissue Mobilization right shoulder Body Location rotator cuff, pec, lat, periscapulars Mobilization Type Cross-Friction,Rolling, Sustained Pressure Intensity/Depth Moderate Body Position Sidelying Comments Reports no tenderness and states feels better post manual tx Joint Mobilizations scapular Joint right scapula Direction into adduction and depression, rotation Grade III Body Position Sidelying Reps/Duration 1x10 Comments Improved control GH Joint right GH Direction inf and A-P Grade III Body Position Hooklying Reps/Duration 1x15 ea Comments Pain free, less crepitus and clunking 130 deg flex, 125 deg abd with scaption PT-OP-T Assessment and Plan Start: 01/21/24 08:11 Freq: Status: Active Protocol: Document 03/08/24 07:30 NM (Rec: 03/08/24 08:17 NM [id number]) Physical Therapy Assessment Goals Six Impairment HEP Short Term Goal (STG) Pt will report compliance with HEP at least 2-3x/wk in order to maximize progression with PT 02/16/24: states doing every day STG Duration 6 weeks MET Ship Captain Goal (LTG) Pt will report compliance with HEP at least 3x/wk in order to transition into maintenance program upon discharge from PT LTG Duration 12 weeks Five Impairment strength Impairment R shoulder abduction/ER/ flexion/IR 3+/5 MMT Short Term Goal (STG) Pt will increase R shoulder abduction/flexion/ER/IR strength to at least 4-/5 MMT in order to demonstrate improved shoulder strength during lifting, ADLs 02/16/24: 4-/5 for all, less pain but continues to have pain with abduction STG Duration 6 weeks MET, PROGRESSING Intermediate Goal (LTG) Pt will increase R shoulder abduction/flexion/ER/IR strength to at least 4/5 MMT in order to demonstrate improved shoulder strength during lifting, ADLs LTG Duration 12 weeks Four Impairment AROM Impairment R shoulder abduction 70 deg, R shoulder flexion 110 deg Short Term Goal (STG) Pt will improve R shoulder abduction AROM to at least 90 deg and R shoulder flexion AROM to at least 120 deg in order to demonstrate increased ability to reach overhead during ADLs/IADLs 02/16/24: 130 deg flexion w/o pain, 140 deg with scaption, 130 deg abduction STG Duration 6 weeks MET Intermediate Goal (LTG) Pt will improve R shoulder abduction AROM to at least 110 deg and R shoulder flexion AROM to at least 135 deg in order to demonstrate increased ability to reach overhead during ADLs/IADLs 02/16/24: 130 deg flexion w/o pain, 140 deg with scaption, 130 deg abduction; demos slight upper trapezius compensation with all LTG Duration 12 weeks MET, PROGRESSING Three Impairment AROM Impairment R shoulder Apley IR to T12 Short Term Goal (STG) Pt will improve R shoulder Apley IR to at least T10 in order to demonstrate improved R shoulder AROM for dressing 02/16/24: T11, painful STG Duration 6 weeks NOT MET Ship Captain Goal (LTG) Pt will improve R shoulder Apley IR to at least T8 in order to demonstrate improved R shoulder AROM for dressing LTG Duration 12 weeks Two Impairment AROM Impairment R shoulder Apley ER to occiput Short Term Goal (STG) Pt will improve R shoulder apley ER test to at least T2 without compensation in order to demonstrate improved AROM for grooming and dressing 02/16/24: C7, painful STG Duration 6 weeks NOT MET Ship Captain Goal (LTG) Pt will improve R shoulder apley ER test to at least T4 without compensation in order to demonstrate improved AROM for grooming and dressing LTG Duration 12 weeks One Impairment quickdash Impairment score 37, 59% Short Term Goal (STG) Pt will decrease quickdash score by at least 5% in order to demonstrate improvements in R shoulder pain management and QOL STG Duration 6 weeks Ship Captain Goal (LTG) Pt will decrease quickdash score by at least 11% in order to demonstrate improvements in R shoulder pain management and QOL LTG Duration 12 weeks Assessment Summary Assessment Pt tolerated session well. Continues to demonstrate good feedback to manual treatment with fewer instances of clunking. Initiated wall walks for closed chain rotator cuff strengthening. Continues to have R scapular winging with arm elevation, so continued with serratus strengthening. Pt fatigues easily with exercises and continues to be most limited with R shoulder strength in end range flexion. Unable to perform standing Y lift off or child pose flexion lift off of ground. During manual treatment, pt has less R shoulder muscle tenderness with soft tissue mobilization. Pt would benefit from skilled PT for R shoulder strengthening and mobility in order to improve ADL tolerance . Physical Therapy Plan Frequency and Duration Frequency of Treatment 2x/Week Duration of treatment (weeks) 12 Plan of Care Start Date 01/21/24 Plan of Care End Date 04/16/24 Therapeutic Interventions Therapeutic Interventions Aquatic Therapy,Coordination Training,Gait Training,Home Exercise Program,Joint Mobilizations,Manual Therapy, Neuromuscular Re-education, Orthotic/Prosthetic Management ,Patient/Caregiver Education, Self-Care/Home Management, Sensory Integration,Soft Tissue Mobilization,Taping, Therapeutic Activities, Therapeutic Exercises Modalities Cold Pack/Ice Massage,Electric Stimulation,Hot Packs, Ultrasound,Vasopneumatic Devices Next Visit Focus/Plan Next Note Type Treatment Note Next Visit Plan Review wall walks, decrease HEP, banded W, PNF/cheerleader , serratus roll w/ ball Manual: grade II-III mobilizations to R shoulder, AC joint, 1st rib; STM to CS, *condense HEP as needed* No grade IV mobilizations
--- NOTE | 2024-03-10 09:13 | PT.OTN ---
Current Diagnoses Other chronic pain (03/10/24) Pain in unspecified shoulder (03/10/24) Physical Therapy Treatment Note PT-OP-A Visit Information Start: 01/21/24 08:11 Freq: Status: Active Protocol: Document 03/10/24 08:17 NM (Rec: 03/10/24 09:13 NM [id number]) Out-Patient Physical Therapy Visit Information Visit Information Visit Type Treatment Note Visit Note KX after 19 visits 04/05 for PN Visit Start Time 08:18 Visit Stop Time 09:00 Visit Number 14 Evaluation Information Evaluation Date 01/21/24 PT-OP-B Current Condition Start: 01/21/24 08:11 Freq: Status: Active Protocol: Document 01/21/24 10:30 NM (Rec: 01/21/24 13:02 NM [id number]) Current Condition History of Current Condition Onset Date 3-4 months worsening Current Complaints pain, mobility History of Current Condition Pt presents with R shoulder pain that has been progressively worsening. 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 She reports that the pain is debilitating. She performs yoga, pilates, weight training, dancing. Pt has pain with arm elevation, dressing, sleeping (usually sleeps on R side, propped on pillow which leads to less pain), eccentric lowering of arm. She reports pain comes and goes. She has been seeing a chiropractor for pain without relief, every couple of weeks. At this time, not planning to have surgery. Denies neck pain, numbness/ tingling. Has crepitus in shoulder; no reports of locking/stuck. No pain at rest PT-OP-C Subjective Start: 01/21/24 08:11 Freq: Status: Active Protocol: Document 03/10/24 08:17 NM (Rec: 03/10/24 09:13 NM [id number]) OP-PT Subjective Patient Comments Patient Comments Pt reports her shoulder is stiff and sore, reports limited ROM. She reports that she felt great after last session. PT-OP-E Functional Tests Start: 01/21/24 08:11 Freq: Status: Active Protocol: Document 01/21/24 10:30 NM (Rec: 01/21/24 13:02 NM [id number]) Functional Tests Apley's Scratch Test Action 1- Left post scapular Action 1- Right to AC joint, pain Action 2- Left T4 Action 2- Right to occiput base, T2 with head flexion, pain Action 3- Left T4 Action 3- Right T12, pain PT-OP-F Manual Assessment Start: 01/21/24 08:11 Freq: Status: Active Protocol: Document 01/21/24 10:30 NM (Rec: 01/21/24 13:02 NM [id number]) Manual Assessments Soft Tissue Assessment Soft Tissue Mobility Assessment Atrophy of R paraspinals, upper trapezius compared to LUE. Joint Mobility Assessment Joint Mobility Assessment Decreased passive and active AROM of R shoulder, empty end feel. Anterior humeral position. Worse with abduction , IR, ER. Decreased AC joint space. 1st rib does not appear elevated with CRLF test PT-OP-H Neuro Start: 01/21/24 08:11 Freq: Status: Active Protocol: Document 01/21/24 10:30 NM (Rec: 01/21/24 13:02 NM [id number]) Sensation Evaluation Comments Summary Comments BUE intact to light touch sensation bilaterally PT-OP-J Posture/Palpation/Skin Start: 01/21/24 08:11 Freq: Status: Active Protocol: Document 01/21/24 10:30 NM (Rec: 01/21/24 13:02 NM [id number]) Posture Evaluation Position Standing Head/C-Spine Posture Forward Head T-Spine Posture Rotation Left,Increased Kyphosis Shoulder Posture (L) Rounded,(R) Rounded,(L) Forward,(R) Forward Comments Posture Comments R shoulder slightly elevated, possible R thoracic curve, protraction Palpation Assessment Location R shoulder Palpation Findings Soft Tissue Tightness, Tenderness Palpation Details tenderness at posterior cuff origin and insertion. Tightness at R lat No tenderness at LH biceps PT-OP-K Range of Motion Start: 01/21/24 08:11 Freq: Status: Active Protocol: Document 02/16/24 09:08 NM (Rec: 02/16/24 09:49 NM [id number]) Shoulder Goniometric Range of Motion Shoulder Right AROM Flexion 110 Abduction 70 External Rotation at 0 degrees Abduction 35 Internal Rotation 65 Comments All motions painful 02/16/24: 130 flex and abduction, min pain with abduction PT-OP-L Special Tests Start: 01/21/24 08:11 Freq: Status: Active Protocol: Document 01/21/24 10:30 NM (Rec: 01/21/24 13:02 NM [id number]) Special Tests Cervical Spine Special Tests Traction Test Results - Spurling's Test Test Results - Shoulder Special Tests Empty Can Test Results + Comments ER worse than IR External Rotation Lag Sign Test Results + Drop Arm Rotator Cuff Test Results - Elevation Impingement Test Results + PT-OP-M Strength Start: 01/21/24 08:11 Freq: Status: Active Protocol: Document 02/16/24 09:08 NM (Rec: 02/16/24 09:49 NM [id number]) Shoulder Strength Shoulder Manual Muscle Testing Right Flexion 3+ Fair+ Abduction (C5) 3+ Fair+ External Rotation 3+ Fair+ Internal Rotation 3+ Fair+ Comments pain with ER, abd 02/16/24: 4-/5 today PT-OP-Q Treatments Start: 01/21/24 08:11 Freq: Status: Active Protocol: Document 03/10/24 08:17 NM (Rec: 03/10/24 09:13 NM [id number]) Therapeutic Exercises Prone Exercises plank Prone Exercise Name plank on elbows Side bilateral Equipment Used on mat Reps/Minutes 2x30 Comments pain free; slight spinal rot thoracic mobility Prone Exercise Name 1. thoracic ext w/ shldr flex, 2. thread needle Side bilateral Resistance AROM Equipment Used on mat: 1. large green malian ball, 2. foam roller Reps/Minutes 1. 5x10 Comments neutral spine Sidelying Exercises external rotation Side right Resistance AROM > 1# Equipment Used towel roll Reps/Minutes 1x15>1x8 Comments pain free but reduced ROM; cued post humeral align; post manual tx abduction Side right Resistance AROM Reps/Minutes 1x10 Comments pain free, improved glide, less clicking w/ reps flexion Side right Resistance AROM > 1# db Reps/Minutes 1x10> 1x5 Comments pain free, less click w/ reps, challenge w/ db; post manual Standing Exercises shoulder flexion+ER Standing Exercise Name banded raise Side bilateral Resistance lvl 1 band around forearms Equipment Used back against wall Reps/Minutes 2x5 Comments pain free; cued scap set/ retraction, tall posture, challenging closed chain rotator cuff Standing Exercise Name banded wall walks Side bilateral Resistance lvl 1 tb around forearms Equipment Used wall at chest height w/ post scap setting for form Reps/Minutes 2x10 ft Comments pain free, fatiguing; cued rest btwn sets Manual Therapy Treatment Soft Tissue Mobilization right shoulder Body Location rotator cuff, pec, lat, periscapulars Mobilization Type Cross-Friction,Rolling, Sustained Pressure Intensity/Depth Moderate Body Position Sidelying Comments Reports no tenderness and states feels better post manual tx Joint Mobilizations scapular Joint right scapula Direction into adduction and depression, rotation Grade III Body Position Sidelying Reps/Duration 1x10 Comments Improved control with AAROM, cued coordination of movement GH Joint right GH Direction inf and A-P Grade III Body Position Hooklying Reps/Duration 2x30 ea Comments During A-P mobilization, bias into ER at 90 deg abd. Improved ROM and pain free. Less crepitus and clunking. PT-OP-T Assessment and Plan Start: 01/21/24 08:11 Freq: Status: Active Protocol: Document 03/10/24 08:17 NM (Rec: 03/10/24 09:13 NM [id number]) Physical Therapy Assessment Goals Six Impairment HEP Short Term Goal (STG) Pt will report compliance with HEP at least 2-3x/wk in order to maximize progression with PT 02/16/24: states doing every day STG Duration 6 weeks MET Director Of [employer] Goal (LTG) Pt will report compliance with HEP at least 3x/wk in order to transition into maintenance program upon discharge from PT LTG Duration 12 weeks Five Impairment strength Impairment R shoulder abduction/ER/ flexion/IR 3+/5 MMT Short Term Goal (STG) Pt will increase R shoulder abduction/flexion/ER/IR strength to at least 4-/5 MMT in order to demonstrate improved shoulder strength during lifting, ADLs 02/16/24: 4-/5 for all, less pain but continues to have pain with abduction STG Duration 6 weeks MET, PROGRESSING Director Of [employer] Goal (LTG) Pt will increase R shoulder abduction/flexion/ER/IR strength to at least 4/5 MMT in order to demonstrate improved shoulder strength during lifting, ADLs LTG Duration 12 weeks Four Impairment AROM Impairment R shoulder abduction 70 deg, R shoulder flexion 110 deg Short Term Goal (STG) Pt will improve R shoulder abduction AROM to at least 90 deg and R shoulder flexion AROM to at least 120 deg in order to demonstrate increased ability to reach overhead during ADLs/IADLs 02/16/24: 130 deg flexion w/o pain, 140 deg with scaption, 130 deg abduction STG Duration 6 weeks MET Longterm Goal (LTG) Pt will improve R shoulder abduction AROM to at least 110 deg and R shoulder flexion AROM to at least 135 deg in order to demonstrate increased ability to reach overhead during ADLs/IADLs 02/16/24: 130 deg flexion w/o pain, 140 deg with scaption, 130 deg abduction; demos slight upper trapezius compensation with all LTG Duration 12 weeks MET, PROGRESSING Three Impairment AROM Impairment R shoulder Apley IR to T12 Short Term Goal (STG) Pt will improve R shoulder Apley IR to at least T10 in order to demonstrate improved R shoulder AROM for dressing 02/16/24: T11, painful STG Duration 6 weeks NOT MET Director Of [employer] Goal (LTG) Pt will improve R shoulder Apley IR to at least T8 in order to demonstrate improved R shoulder AROM for dressing LTG Duration 12 weeks Two Impairment AROM Impairment R shoulder Apley ER to occiput Short Term Goal (STG) Pt will improve R shoulder apley ER test to at least T2 without compensation in order to demonstrate improved AROM for grooming and dressing 02/16/24: C7, painful STG Duration 6 weeks NOT MET Director Of [employer] Goal (LTG) Pt will improve R shoulder apley ER test to at least T4 without compensation in order to demonstrate improved AROM for grooming and dressing LTG Duration 12 weeks One Impairment quickdash Impairment score 37, 59% Short Term Goal (STG) Pt will decrease quickdash score by at least 5% in order to demonstrate improvements in R shoulder pain management and QOL STG Duration 6 weeks Director Of [employer] Goal (LTG) Pt will decrease quickdash score by at least 11% in order to demonstrate improvements in R shoulder pain management and QOL LTG Duration 12 weeks Assessment Summary Assessment Pt tolerated session well with good feedback to therapeutic exercise and manual therapy. Initiated thoracic mobility to improve shoulder mobility across kinetic chain. Pt demonstrates observable improvements in R shoulder ROM post mobility training. Progressed counter planks to floor planks on elbows, which pt able to tolerate pain free and with minimal scapular winging. Pt primarily has small spinal rotation related to scoliosis. Pt continues to have weakness of rotator cuff and can only tolerate low resistance training at lower repetitions; however, her scapular control and posture during exercises is more elongated with fewer compensations. Pt would benefit from skilled PT for R shoulder mobility and strengthening in order to improve ADL tolerance and symptom management. Physical Therapy Plan Frequency and Duration Frequency of Treatment 2x/Week Duration of treatment (weeks) 12 Plan of Care Start Date 01/21/24 Plan of Care End Date 04/16/24 Therapeutic Interventions Therapeutic Interventions Aquatic Therapy,Coordination Training,Gait Training,Home Exercise Program,Joint Mobilizations,Manual Therapy, Neuromuscular Re-education, Orthotic/Prosthetic Management ,Patient/Caregiver Education, Self-Care/Home Management, Sensory Integration,Soft Tissue Mobilization,Taping, Therapeutic Activities, Therapeutic Exercises Modalities Cold Pack/Ice Massage,Electric Stimulation,Hot Packs, Ultrasound,Vasopneumatic Devices Next Visit Focus/Plan Next Note Type Treatment Note Next Visit Plan Add wall walks to HEP, banded W, PNF/cheerleader, serratus roll w/ foam roller,dolphin plank, serratus slide Manual: grade II-III mobilizations to R shoulder, AC joint, 1st rib; STM to CS, No grade IV mobilizations
--- NOTE | 2024-03-15 09:01 | PT.OTN ---
Current Diagnoses Other chronic pain (03/15/24) Pain in unspecified shoulder (03/15/24) Physical Therapy Treatment Note PT-OP-A Visit Information Start: 01/21/24 08:11 Freq: Status: Active Protocol: Document 03/15/24 08:17 NM (Rec: 03/15/24 09:01 NM [id number]) Out-Patient Physical Therapy Visit Information Visit Information Visit Type Treatment Note Visit Note KX after 19 visits 05/05 for PN Visit Start Time 08:18 Visit Stop Time 08:58 Visit Number 15 PT-OP-B Current Condition Start: 01/21/24 08:11 Freq: Status: Active Protocol: Document 01/21/24 10:30 NM (Rec: 01/21/24 13:02 NM [id number]) Current Condition History of Current Condition Onset Date 3-4 months worsening Current Complaints pain, mobility History of Current Condition Pt presents with R shoulder pain that has been progressively worsening. 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 She reports that the pain is debilitating. She performs yoga, pilates, weight training, dancing. Pt has pain with arm elevation, dressing, sleeping (usually sleeps on R side, propped on pillow which leads to less pain), eccentric lowering of arm. She reports pain comes and goes. She has been seeing a chiropractor for pain without relief, every couple of weeks. At this time, not planning to have surgery. Denies neck pain, numbness/ tingling. Has crepitus in shoulder; no reports of locking/stuck. No pain at rest PT-OP-C Subjective Start: 01/21/24 08:11 Freq: Status: Active Protocol: Document 03/15/24 08:17 NM (Rec: 03/15/24 09:01 NM [id number]) OP-PT Subjective Patient Comments Patient Comments Pt reports that she has been doing a lot more reaching, higher and more frequently. She also reports better ability to perform ER/IR with band. Pt also reports that she does not have as much grabbing at night with turning. She has some posterior cuff soreness. PT-OP-E Functional Tests Start: 01/21/24 08:11 Freq: Status: Active Protocol: Document 01/21/24 10:30 NM (Rec: 01/21/24 13:02 NM [id number]) Functional Tests Apley's Scratch Test Action 1- Left post scapular Action 1- Right to AC joint, pain Action 2- Left T4 Action 2- Right to occiput base, T2 with head flexion, pain Action 3- Left T4 Action 3- Right T12, pain PT-OP-F Manual Assessment Start: 01/21/24 08:11 Freq: Status: Active Protocol: Document 01/21/24 10:30 NM (Rec: 01/21/24 13:02 NM [id number]) Manual Assessments Soft Tissue Assessment Soft Tissue Mobility Assessment Atrophy of R paraspinals, upper trapezius compared to LUE. Joint Mobility Assessment Joint Mobility Assessment Decreased passive and active AROM of R shoulder, empty end feel. Anterior humeral position. Worse with abduction , IR, ER. Decreased AC joint space. 1st rib does not appear elevated with CRLF test PT-OP-H Neuro Start: 01/21/24 08:11 Freq: Status: Active Protocol: Document 01/21/24 10:30 NM (Rec: 01/21/24 13:02 NM [id number]) Sensation Evaluation Comments Summary Comments BUE intact to light touch sensation bilaterally PT-OP-J Posture/Palpation/Skin Start: 01/21/24 08:11 Freq: Status: Active Protocol: Document 01/21/24 10:30 NM (Rec: 01/21/24 13:02 NM [id number]) Posture Evaluation Position Standing Head/C-Spine Posture Forward Head T-Spine Posture Rotation Left,Increased Kyphosis Shoulder Posture (L) Rounded,(R) Rounded,(L) Forward,(R) Forward Comments Posture Comments R shoulder slightly elevated, possible R thoracic curve, protraction Palpation Assessment Location R shoulder Palpation Findings Soft Tissue Tightness, Tenderness Palpation Details tenderness at posterior cuff origin and insertion. Tightness at R lat No tenderness at LH biceps PT-OP-K Range of Motion Start: 01/21/24 08:11 Freq: Status: Active Protocol: Document 02/16/24 09:08 NM (Rec: 02/16/24 09:49 NM [id number]) Shoulder Goniometric Range of Motion Shoulder Right AROM Flexion 110 Abduction 70 External Rotation at 0 degrees Abduction 35 Internal Rotation 65 Comments All motions painful 02/16/24: 130 flex and abduction, min pain with abduction PT-OP-L Special Tests Start: 01/21/24 08:11 Freq: Status: Active Protocol: Document 01/21/24 10:30 NM (Rec: 01/21/24 13:02 NM [id number]) Special Tests Cervical Spine Special Tests Traction Test Results - Spurling's Test Test Results - Shoulder Special Tests Empty Can Test Results + Comments ER worse than IR External Rotation Lag Sign Test Results + Drop Arm Rotator Cuff Test Results - Elevation Impingement Test Results + PT-OP-M Strength Start: 01/21/24 08:11 Freq: Status: Active Protocol: Document 02/16/24 09:08 NM (Rec: 02/16/24 09:49 NM [id number]) Shoulder Strength Shoulder Manual Muscle Testing Right Flexion 3+ Fair+ Abduction (C5) 3+ Fair+ External Rotation 3+ Fair+ Internal Rotation 3+ Fair+ Comments pain with ER, abd 02/16/24: 4-/5 today PT-OP-Q Treatments Start: 01/21/24 08:11 Freq: Status: Active Protocol: Document 03/15/24 08:17 NM (Rec: 03/15/24 09:01 NM [id number]) Therapeutic Exercises Sidelying Exercises external rotation Side right Resistance AROM> 1# db Reps/Minutes 1x5 with 3 concentric, 3 isometric, 3 eccentric>1x5 w/ 1# db CIE Comments pain free, improved form with load, min trunk rot abduction Sidelying Exercise Name HABD at 90 deg Side right Resistance AROM Reps/Minutes 2x5 with 3 concentric, 3 isometric, 3 eccentric Comments challenging; pain free, cued for straight arm flexion Side right Resistance AROM Reps/Minutes 1x5 with 3 concentric, 3 hold yunior, 3 eccentric Comments challenging today Standing Exercises IR Side right Reps/Minutes 1x8 with 1 push Comments cued push hand into back, elbow in line with body shoulder flexion+ER Standing Exercise Name banded raise Side bilateral Resistance lvl 1 band around forearms Equipment Used back against wall Reps/Minutes 1x10 Comments pain free; challenging; better elongation posture at wall serratus slide Standing Exercise Name with foam roller Side bilateral Resistance staggered stance Equipment Used lvl 1 band around forearms Reps/Minutes 2x5 Comments cued no triangle w/ arms, strong push into wall; challenging counter plank on forearms Standing Exercise Name full ext shoulder taps non-alt Side bilateral Reps/Minutes 1x15 ea Comments good self cues for trunk correction; slight crepitus; challenging pectoral stretch Standing Exercise Name arm at 90 deg w/ elbow straight Side right Resistance at wall Reps/Minutes 1x60 Comments pain free, but fatiguing at end of session Manual Therapy Treatment Soft Tissue Mobilization right shoulder Body Location rotator cuff, pec, lat, periscapulars Mobilization Type Cross-Friction,Rolling, Sustained Pressure Intensity/Depth Moderate Body Position Sidelying Comments Tenderness along posterior cuff and lat. Improved with soft tissue mobilization. PT-OP-T Assessment and Plan Start: 01/21/24 08:11 Freq: Status: Active Protocol: Document 03/15/24 08:17 NM (Rec: 03/15/24 09:01 NM [id number]) Physical Therapy Assessment Goals Six Impairment HEP Short Term Goal (STG) Pt will report compliance with HEP at least 2-3x/wk in order to maximize progression with PT 02/16/24: states doing every day STG Duration 6 weeks MET Group Home Goal (LTG) Pt will report compliance with HEP at least 3x/wk in order to transition into maintenance program upon discharge from PT LTG Duration 12 weeks Five Impairment strength Impairment R shoulder abduction/ER/ flexion/IR 3+/5 MMT Short Term Goal (STG) Pt will increase R shoulder abduction/flexion/ER/IR strength to at least 4-/5 MMT in order to demonstrate improved shoulder strength during lifting, ADLs 02/16/24: 4-/5 for all, less pain but continues to have pain with abduction STG Duration 6 weeks MET, PROGRESSING Group Home Goal (LTG) Pt will increase R shoulder abduction/flexion/ER/IR strength to at least 4/5 MMT in order to demonstrate improved shoulder strength during lifting, ADLs LTG Duration 12 weeks Four Impairment AROM Impairment R shoulder abduction 70 deg, R shoulder flexion 110 deg Short Term Goal (STG) Pt will improve R shoulder abduction AROM to at least 90 deg and R shoulder flexion AROM to at least 120 deg in order to demonstrate increased ability to reach overhead during ADLs/IADLs 02/16/24: 130 deg flexion w/o pain, 140 deg with scaption, 130 deg abduction STG Duration 6 weeks MET Child Development Assistant Goal (LTG) Pt will improve R shoulder abduction AROM to at least 110 deg and R shoulder flexion AROM to at least 135 deg in order to demonstrate increased ability to reach overhead during ADLs/IADLs 02/16/24: 130 deg flexion w/o pain, 140 deg with scaption, 130 deg abduction; demos slight upper trapezius compensation with all LTG Duration 12 weeks MET, PROGRESSING Three Impairment AROM Impairment R shoulder Apley IR to T12 Short Term Goal (STG) Pt will improve R shoulder Apley IR to at least T10 in order to demonstrate improved R shoulder AROM for dressing 02/16/24: T11, painful STG Duration 6 weeks NOT MET Group Home Goal (LTG) Pt will improve R shoulder Apley IR to at least T8 in order to demonstrate improved R shoulder AROM for dressing LTG Duration 12 weeks Two Impairment AROM Impairment R shoulder Apley ER to occiput Short Term Goal (STG) Pt will improve R shoulder apley ER test to at least T2 without compensation in order to demonstrate improved AROM for grooming and dressing 02/16/24: C7, painful STG Duration 6 weeks NOT MET Group Home Goal (LTG) Pt will improve R shoulder apley ER test to at least T4 without compensation in order to demonstrate improved AROM for grooming and dressing LTG Duration 12 weeks One Impairment quickdash Impairment score 37, 59% Short Term Goal (STG) Pt will decrease quickdash score by at least 5% in order to demonstrate improvements in R shoulder pain management and QOL STG Duration 6 weeks Group Home Goal (LTG) Pt will decrease quickdash score by at least 11% in order to demonstrate improvements in R shoulder pain management and QOL LTG Duration 12 weeks Assessment Summary Assessment Pt tolerated session well with good effort. She worked until R shoulder fatigue today. Emphasis on neuromuscular control with sidelying ER/flex /abd even with resistance. Changed to horizontal abduction, which pt able to perform to 90 deg without pain . Continues to be challenged with serratus activation, but demos improved flexion ROM and eccentric control. During manual treatment, pt has increased posterior cuff and lat tenderness that responds well to soft tissue mobilization. Pt would benefit from skilled PT for R shoulder strengthening and mobility in order to improve activity tolerance. Physical Therapy Plan Frequency and Duration Frequency of Treatment 2x/Week Duration of treatment (weeks) 12 Plan of Care Start Date 01/21/24 Plan of Care End Date 04/16/24 Therapeutic Interventions Therapeutic Interventions Aquatic Therapy,Coordination Training,Gait Training,Home Exercise Program,Joint Mobilizations,Manual Therapy, Neuromuscular Re-education, Orthotic/Prosthetic Management ,Patient/Caregiver Education, Self-Care/Home Management, Sensory Integration,Soft Tissue Mobilization,Taping, Therapeutic Activities, Therapeutic Exercises Modalities Cold Pack/Ice Massage,Electric Stimulation,Hot Packs, Ultrasound,Vasopneumatic Devices Next Visit Focus/Plan Next Note Type Treatment Note Next Visit Plan serratus roll, resistance with sidelying trio, shoulder taps , NM control with activity. Add wall walks to HEP, banded W, PNF/cheerleader, serratus roll w/ foam roller,dolphin plank, serratus slide Manual: grade II-III mobilizations to R shoulder, AC joint, 1st rib; STM to CS, No grade IV mobilizations
--- NOTE | 2024-03-17 08:38 | PT.OTN ---
Current Diagnoses Other chronic pain (03/17/24) Pain in unspecified shoulder (03/17/24) Physical Therapy Treatment Note PT-OP-A Visit Information Start: 01/21/24 08:11 Freq: Status: Active Protocol: Document 03/17/24 07:32 NM (Rec: 03/17/24 08:15 NM [id number]) Out-Patient Physical Therapy Visit Information Visit Information Visit Type Progress Note Visit Note KX after 19 visits Visit Start Time 07:33 Visit Stop Time 08:15 Visit Number 16 Evaluation Information Evaluation Date 01/21/24 PT-OP-B Current Condition Start: 01/21/24 08:11 Freq: Status: Active Protocol: Document 01/21/24 10:30 NM (Rec: 01/21/24 13:02 NM [id number]) Current Condition History of Current Condition Onset Date 3-4 months worsening Current Complaints pain, mobility History of Current Condition Pt presents with R shoulder pain that has been progressively worsening. 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 She reports that the pain is debilitating. She performs yoga, pilates, weight training, dancing. Pt has pain with arm elevation, dressing, sleeping (usually sleeps on R side, propped on pillow which leads to less pain), eccentric lowering of arm. She reports pain comes and goes. She has been seeing a chiropractor for pain without relief, every couple of weeks. At this time, not planning to have surgery. Denies neck pain, numbness/ tingling. Has crepitus in shoulder; no reports of locking/stuck. No pain at rest PT-OP-C Subjective Start: 01/21/24 08:11 Freq: Status: Active Protocol: Document 03/17/24 07:32 NM (Rec: 03/17/24 08:15 NM [id number]) OP-PT Subjective Patient Comments Patient Comments Pt reports soreness after last session. States took yesterday jose but feels good today ad caould reach up higher to shlef when putting dishes away. She reports that she is sleeping better too PT-OP-E Functional Tests Start: 01/21/24 08:11 Freq: Status: Active Protocol: Document 01/21/24 10:30 NM (Rec: 01/21/24 13:02 NM [id number]) Functional Tests Jose's Scratch Test Action 1- Left post scapular Action 1- Right to AC joint, pain Action 2- Left T4 Action 2- Right to occiput base, T2 with head flexion, pain Action 3- Left T4 Action 3- Right T12, pain PT-OP-F Manual Assessment Start: 01/21/24 08:11 Freq: Status: Active Protocol: Document 01/21/24 10:30 NM (Rec: 01/21/24 13:02 NM [id number]) Manual Assessments Soft Tissue Assessment Soft Tissue Mobility Assessment Atrophy of R paraspinals, upper trapezius compared to LUE. Joint Mobility Assessment Joint Mobility Assessment Decreased passive and active AROM of R shoulder, empty end feel. Anterior humeral position. Worse with abduction , IR, ER. Decreased AC joint space. 1st rib does not appear elevated with CRLF test PT-OP-H Neuro Start: 01/21/24 08:11 Freq: Status: Active Protocol: Document 01/21/24 10:30 NM (Rec: 01/21/24 13:02 NM [id number]) Sensation Evaluation Comments Summary Comments BUE intact to light touch sensation bilaterally PT-OP-J Posture/Palpation/Skin Start: 01/21/24 08:11 Freq: Status: Active Protocol: Document 01/21/24 10:30 NM (Rec: 01/21/24 13:02 NM [id number]) Posture Evaluation Position Standing Head/C-Spine Posture Forward Head T-Spine Posture Rotation Left,Increased Kyphosis Shoulder Posture (L) Rounded,(R) Rounded,(L) Forward,(R) Forward Comments Posture Comments R shoulder slightly elevated, possible R thoracic curve, protraction Palpation Assessment Location R shoulder Palpation Findings Soft Tissue Tightness, Tenderness Palpation Details tenderness at posterior cuff origin and insertion. Tightness at R lat No tenderness at LH biceps PT-OP-K Range of Motion Start: 01/21/24 08:11 Freq: Status: Active Protocol: Document 03/17/24 07:32 NM (Rec: 03/17/24 08:15 NM [id number]) Shoulder Goniometric Range of Motion Shoulder Right AROM Flexion 110 Abduction 70 External Rotation at 0 degrees Abduction 35 Internal Rotation 65 Comments All motions painful 02/16/24: 130 flex and abduction, min pain with abduction 03/17/24: (premanual) 127 deg flex, 130 deg abd before scaption, 40 deg ER PT-OP-L Special Tests Start: 01/21/24 08:11 Freq: Status: Active Protocol: Document 01/21/24 10:30 NM (Rec: 01/21/24 13:02 NM [id number]) Special Tests Cervical Spine Special Tests Traction Test Results - Spurling's Test Test Results - Shoulder Special Tests Empty Can Test Results + Comments ER worse than IR External Rotation Lag Sign Test Results + Drop Arm Rotator Cuff Test Results - Elevation Impingement Test Results + PT-OP-M Strength Start: 01/21/24 08:11 Freq: Status: Active Protocol: Document 03/17/24 07:32 NM (Rec: 03/17/24 08:15 NM [id number]) Shoulder Strength Shoulder Manual Muscle Testing Right Flexion 3+ Fair+ Abduction (C5) 3+ Fair+ External Rotation 3+ Fair+ Internal Rotation 3+ Fair+ Comments IE: pain with ER, abd 02/16/24: 4-/5 today 03/17/24: 4-/5 today for IR and ABD (min pain with resistance ), 4/5 for ER and flex PT-OP-Q Treatments Start: 01/21/24 08:11 Freq: Status: Active Protocol: Document 03/17/24 07:32 NM (Rec: 03/17/24 08:15 NM [id number]) Therapeutic Exercises Sidelying Exercises external rotation Side right Resistance 1# db Equipment Used towel roll Reps/Minutes 2x8 Comments fatiguing, cued for form in later reps abduction Sidelying Exercise Name 1. HABD at 90 deg, 2. ABD Side right Resistance AROM Reps/Minutes 1. 3x8 ea, 2. 2x8 Comments fatiguing; pain free, cued for straight arm flexion Side right Resistance AROM Reps/Minutes 2x8 Comments fatiguing Sitting Exercises inferior glide Sitting Exercise Name self mob with band Side right Resistance lvl 1 band Equipment Used L assisting R Reps/Minutes 3x10 mobilization Comments pain free; clunking Manual Therapy Treatment Soft Tissue Mobilization right shoulder Body Location rotator cuff, lat, periscapulars Mobilization Type Cross-Friction,Rolling, Sustained Pressure Intensity/Depth Moderate Body Position Sidelying Comments Less tenderness along posterior cuff and lat. Improved with soft tissue mobilization. Joint Mobilizations GH Joint right GH Direction inf and A-P Grade III Body Position Hooklying Reps/Duration 4x30 ea Comments During A-P mobilization, bias into ER at 90 deg abd. Decreased inferior glide. Demos pain free crepitus and clunking. Self-Care/Home Management Treatment Education Patient Education Home Exercise Program Other Education HEP: sidelying ER with 1#, sidelying flexion/ABD/HABD w/o resistance, inf glide self mobilization w/ band PT-OP-T Assessment and Plan Start: 01/21/24 08:11 Freq: Status: Active Protocol: Document 03/17/24 07:32 NM (Rec: 03/17/24 08:15 NM [id number]) Physical Therapy Assessment Goals Six Impairment HEP Short Term Goal (STG) Pt will report compliance with HEP at least 2-3x/wk in order to maximize progression with PT 02/16/24: states doing every day STG Duration 6 weeks MET Division Manager Goal (LTG) Pt will report compliance with HEP at least 3x/wk in order to transition into maintenance program upon discharge from PT 03/17/24: performing HEP every other day LTG Duration 12 weeks MET Five Impairment strength Impairment R shoulder abduction/ER/ flexion/IR 3+/5 MMT Short Term Goal (STG) Pt will increase R shoulder abduction/flexion/ER/IR strength to at least 4-/5 MMT in order to demonstrate improved shoulder strength during lifting, ADLs 02/16/24: 4-/5 for all, less pain but continues to have pain with abduction 03/17/24: 4/5 for flex and ER, pain free; 4-/5 for IR and abd (min pain with IR) STG Duration 6 weeks MET, PROGRESSING Intermediate Goal (LTG) Pt will increase R shoulder abduction/flexion/ER/IR strength to at least 4/5 MMT in order to demonstrate improved shoulder strength during lifting, ADLs 03/17/24: 4/5 for flex and ER, pain free; 4-/5 for IR and abd (min pain with IR) LTG Duration 12 weeks Four Impairment AROM Impairment R shoulder abduction 70 deg, R shoulder flexion 110 deg Short Term Goal (STG) Pt will improve R shoulder abduction AROM to at least 90 deg and R shoulder flexion AROM to at least 120 deg in order to demonstrate increased ability to reach overhead during ADLs/IADLs 02/16/24: 130 deg flexion w/o pain, 140 deg with scaption, 130 deg abduction STG Duration 6 weeks MET Intermediate Goal (LTG) Pt will improve R shoulder abduction AROM to at least 110 deg and R shoulder flexion AROM to at least 135 deg in order to demonstrate increased ability to reach overhead during ADLs/IADLs 02/16/24: 130 deg flexion w/o pain, 140 deg with scaption, 130 deg abduction; demos slight upper trapezius compensation with all LTG Duration 12 weeks MET, PROGRESSING Three Impairment AROM Impairment R shoulder Apley IR to T12 Short Term Goal (STG) Pt will improve R shoulder Apley IR to at least T10 in order to demonstrate improved R shoulder AROM for dressing 02/16/24: T11, painful 03/17/24: STG Duration 6 weeks NOT MET Division Manager Goal (LTG) Pt will improve R shoulder Apley IR to at least T8 in order to demonstrate improved R shoulder AROM for dressing LTG Duration 12 weeks Two Impairment AROM Impairment R shoulder Apley ER to occiput Short Term Goal (STG) Pt will improve R shoulder apley ER test to at least T2 without compensation in order to demonstrate improved AROM for grooming and dressing 02/16/24: C7, painful 03/17/24: STG Duration 6 weeks NOT MET Intermediate Goal (LTG) Pt will improve R shoulder apley ER test to at least T4 without compensation in order to demonstrate improved AROM for grooming and dressing LTG Duration 12 weeks One Impairment quickdash Impairment score 37, 59% Short Term Goal (STG) Pt will decrease quickdash score by at least 5% in order to demonstrate improvements in R shoulder pain management and QOL 03/17/24: STG Duration 6 weeks Division Manager Goal (LTG) Pt will decrease quickdash score by at least 11% in order to demonstrate improvements in R shoulder pain management and QOL LTG Duration 12 weeks Progress Towards Goals Progress Towards Goals Progressing Toward Goals,Goals Met Progress Comments Progressing toward ROM and strength goals. Assessment Summary Assessment Pt tolerated session well, working until muscle fatigue. Demonstrates decreased R shoulder inferior glide today. Continued with R glenohumeral joint mobilizations to increase R shoulder mobility. Initiated banded self inferior glide mobilization post manual treatment, followed by sidelying AROM to reinforce correct scapulohumeral mechanics. Pt also exhibits tenderness to palpation and muscle tightness of R rotator cuff muscles and latissimus dorsi, which is decreased with soft tissue mobilization. During sidelying shoulder flex /abd/HABD/ER, pt able to perform multiple sets. Cued for form within correct pain, full ROM without movement into painful ROM. Pt able to perform both ABD and HABD with increased ROM, improved humeral inferior glide post mobilization. Only able to perform sidelying shoulder ER with small resistance. Added sidelying exercises to HEP. Pt planning to be out of town until mid-March, but reports that she is has significantly less pain overall in R shoulder and improved mobility during ADLs. Physical Therapy Plan Frequency and Duration Frequency of Treatment 2x/Week Duration of treatment (weeks) 12 Plan of Care Start Date 01/21/24 Plan of Care End Date 04/16/24 Therapeutic Interventions Therapeutic Interventions Aquatic Therapy,Coordination Training,Gait Training,Home Exercise Program,Joint Mobilizations,Manual Therapy, Neuromuscular Re-education, Orthotic/Prosthetic Management ,Patient/Caregiver Education, Self-Care/Home Management, Sensory Integration,Soft Tissue Mobilization,Taping, Therapeutic Activities, Therapeutic Exercises Modalities Cold Pack/Ice Massage,Electric Stimulation,Hot Packs, Ultrasound,Vasopneumatic Devices Next Visit Focus/Plan Next Visit Plan Take ROM before/after manual and exercise tx; R IR, serratus roll, resistance with sidelying trio, shoulder taps , NM control with activity. Add wall walks to HEP, banded W, PNF/cheerleader, serratus roll w/ foam roller,dolphin plank, serratus slide Manual: grade II-III mobilizations to R shoulder, AC joint, 1st rib; STM to CS, No grade IV mobilizations
--- NOTE | 2024-04-07 12:47 | PT.OTN ---
Current Diagnoses Other chronic pain (04/07/24) Pain in unspecified shoulder (04/07/24) Physical Therapy Treatment Note PT-OP-A Visit Information Start: 01/21/24 08:11 Freq: Status: Active Protocol: Document 04/07/24 09:04 NM (Rec: 04/07/24 09:46 NM [id number]) Out-Patient Physical Therapy Visit Information Visit Information Visit Type Treatment Note Visit Note KX after 19 visits Visit Start Time 09:04 Visit Stop Time 09:44 Visit Number 17 PT-OP-B Current Condition Start: 01/21/24 08:11 Freq: Status: Active Protocol: Document 01/21/24 10:30 NM (Rec: 01/21/24 13:02 NM [id number]) Current Condition History of Current Condition Onset Date 3-4 months worsening Current Complaints pain, mobility History of Current Condition Pt presents with R shoulder pain that has been progressively worsening. 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 She reports that the pain is debilitating. She performs yoga, pilates, weight training, dancing. Pt has pain with arm elevation, dressing, sleeping (usually sleeps on R side, propped on pillow which leads to less pain), eccentric lowering of arm. She reports pain comes and goes. She has been seeing a chiropractor for pain without relief, every couple of weeks. At this time, not planning to have surgery. Denies neck pain, numbness/ tingling. Has crepitus in shoulder; no reports of locking/stuck. No pain at rest PT-OP-C Subjective Start: 01/21/24 08:11 Freq: Status: Active Protocol: Document 04/07/24 09:04 NM (Rec: 04/07/24 09:46 NM [id number]) OP-PT Subjective Patient Comments Patient Comments Pt reports that she had a good trip. Reports that her shoulder hasn't been bothering her only clunking. She did her exercises and bands. She's back to doing ADLs and reports improved reaching PT-OP-E Functional Tests Start: 01/21/24 08:11 Freq: Status: Active Protocol: Document 01/21/24 10:30 NM (Rec: 01/21/24 13:02 NM [id number]) Functional Tests Vivianaey's Scratch Test Action 1- Left post scapular Action 1- Right to AC joint, pain Action 2- Left T4 Action 2- Right to occiput base, T2 with head flexion, pain Action 3- Left T4 Action 3- Right T12, pain PT-OP-F Manual Assessment Start: 01/21/24 08:11 Freq: Status: Active Protocol: Document 01/21/24 10:30 NM (Rec: 01/21/24 13:02 NM [id number]) Manual Assessments Soft Tissue Assessment Soft Tissue Mobility Assessment Atrophy of R paraspinals, upper trapezius compared to LUE. Joint Mobility Assessment Joint Mobility Assessment Decreased passive and active AROM of R shoulder, empty end feel. Anterior humeral position. Worse with abduction , IR, ER. Decreased AC joint space. 1st rib does not appear elevated with CRLF test PT-OP-H Neuro Start: 01/21/24 08:11 Freq: Status: Active Protocol: Document 01/21/24 10:30 NM (Rec: 01/21/24 13:02 NM [id number]) Sensation Evaluation Comments Summary Comments BUE intact to light touch sensation bilaterally PT-OP-J Posture/Palpation/Skin Start: 01/21/24 08:11 Freq: Status: Active Protocol: Document 01/21/24 10:30 NM (Rec: 01/21/24 13:02 NM [id number]) Posture Evaluation Position Standing Head/C-Spine Posture Forward Head T-Spine Posture Rotation Left,Increased Kyphosis Shoulder Posture (L) Rounded,(R) Rounded,(L) Forward,(R) Forward Comments Posture Comments R shoulder slightly elevated, possible R thoracic curve, protraction Palpation Assessment Location R shoulder Palpation Findings Soft Tissue Tightness, Tenderness Palpation Details tenderness at posterior cuff origin and insertion. Tightness at R lat No tenderness at LH biceps PT-OP-K Range of Motion Start: 01/21/24 08:11 Freq: Status: Active Protocol: Document 03/17/24 07:32 NM (Rec: 03/17/24 08:15 NM [id number]) Shoulder Goniometric Range of Motion Shoulder Right AROM Flexion 110 Abduction 70 External Rotation at 0 degrees Abduction 35 Internal Rotation 65 Comments All motions painful 02/16/24: 130 flex and abduction, min pain with abduction 03/17/24: (premanual) 127 deg flex, 130 deg abd before scaption, 40 deg ER PT-OP-L Special Tests Start: 01/21/24 08:11 Freq: Status: Active Protocol: Document 01/21/24 10:30 NM (Rec: 01/21/24 13:02 NM [id number]) Special Tests Cervical Spine Special Tests Traction Test Results - Spurling's Test Test Results - Shoulder Special Tests Empty Can Test Results + Comments ER worse than IR External Rotation Lag Sign Test Results + Drop Arm Rotator Cuff Test Results - Elevation Impingement Test Results + PT-OP-M Strength Start: 01/21/24 08:11 Freq: Status: Active Protocol: Document 03/17/24 07:32 NM (Rec: 03/17/24 08:15 NM [id number]) Shoulder Strength Shoulder Manual Muscle Testing Right Flexion 3+ Fair+ Abduction (C5) 3+ Fair+ External Rotation 3+ Fair+ Internal Rotation 3+ Fair+ Comments IE: pain with ER, abd 02/16/24: 4-/5 today 03/17/24: 4-/5 today for IR and ABD (min pain with resistance ), 4/5 for ER and flex PT-OP-Q Treatments Start: 01/21/24 08:11 Freq: Status: Active Protocol: Document 04/07/24 09:04 NM (Rec: 04/07/24 09:46 NM [id number]) Therapeutic Exercises Sidelying Exercises external rotation Side right Resistance 1# db Equipment Used towel roll Reps/Minutes 2x10 Comments pt self tactile cue for form abduction Sidelying Exercise Name HABD Side right Resistance 1# db Reps/Minutes 2x8 Comments challenging; cued for scap retraction/setting flexion Side right Resistance 1# Reps/Minutes 2x8 Standing Exercises thoracic mobility Standing Exercise Name standing open book Side bilateral Equipment Used staggered Reps/Minutes 5 Comments end of session landmine press Side right Resistance 4# Equipment Used dowel with ankle weight at table (dowel on table) Reps/Minutes 3x8 Comments cued for form; pain free IR Standing Exercise Name 1. IR/ext w/ dowel, 2. IR/ADD behind back Reps/Minutes 1. 10, 2. 10x5 hold Comments pain free counter plank on forearms Standing Exercise Name wall plank on elbows serratus push up Side bilateral Reps/Minutes 10 with 3 hold Comments crepitus, pain free; cued for form RTC TB Standing Exercise Name W Side bilateral Resistance level 1 band Reps/Minutes 8 Comments cued scapular retraction lat stretch/table walkout Standing Exercise Name post exercise Side bilateral Equipment Used treadmill bar Reps/Minutes 5x5 hold Manual Therapy Treatment Soft Tissue Mobilization right shoulder Body Location rotator cuff, lat, periscapulars, LS Mobilization Type Cross-Friction,Rolling, Sustained Pressure Intensity/Depth Moderate Body Position Sidelying Comments Less tenderness of all muscles . Trigger point at LS, reduced with moblization Joint Mobilizations GH Joint right GH Direction inf and post Grade III Body Position Hooklying Reps/Duration 2x30 ea Comments During A-P mobilization, bias into ER at 90 deg abd. Decreased inferior glide. Demos pain free crepitus and clunking. PT-OP-T Assessment and Plan Start: 01/21/24 08:11 Freq: Status: Active Protocol: Document 04/07/24 09:04 NM (Rec: 04/07/24 09:46 NM [id number]) Physical Therapy Assessment Goals Six Impairment HEP Short Term Goal (STG) Pt will report compliance with HEP at least 2-3x/wk in order to maximize progression with PT 02/16/24: states doing every day STG Duration 6 weeks MET Care Home Goal (LTG) Pt will report compliance with HEP at least 3x/wk in order to transition into maintenance program upon discharge from PT 03/17/24: performing HEP every other day LTG Duration 12 weeks MET Five Impairment strength Impairment R shoulder abduction/ER/ flexion/IR 3+/5 MMT Short Term Goal (STG) Pt will increase R shoulder abduction/flexion/ER/IR strength to at least 4-/5 MMT in order to demonstrate improved shoulder strength during lifting, ADLs 02/16/24: 4-/5 for all, less pain but continues to have pain with abduction 03/17/24: 4/5 for flex and ER, pain free; 4-/5 for IR and abd (min pain with IR) STG Duration 6 weeks MET, PROGRESSING Transverse Abdominal Muscle Nurse Goal (LTG) Pt will increase R shoulder abduction/flexion/ER/IR strength to at least 4/5 MMT in order to demonstrate improved shoulder strength during lifting, ADLs 03/17/24: 4/5 for flex and ER, pain free; 4-/5 for IR and abd (min pain with IR) LTG Duration 12 weeks Four Impairment AROM Impairment R shoulder abduction 70 deg, R shoulder flexion 110 deg Short Term Goal (STG) Pt will improve R shoulder abduction AROM to at least 90 deg and R shoulder flexion AROM to at least 120 deg in order to demonstrate increased ability to reach overhead during ADLs/IADLs 02/16/24: 130 deg flexion w/o pain, 140 deg with scaption, 130 deg abduction STG Duration 6 weeks MET Transverse Abdominal Muscle Nurse Goal (LTG) Pt will improve R shoulder abduction AROM to at least 110 deg and R shoulder flexion AROM to at least 135 deg in order to demonstrate increased ability to reach overhead during ADLs/IADLs 02/16/24: 130 deg flexion w/o pain, 140 deg with scaption, 130 deg abduction; demos slight upper trapezius compensation with all LTG Duration 12 weeks MET, PROGRESSING Three Impairment AROM Impairment R shoulder Apley IR to T12 Short Term Goal (STG) Pt will improve R shoulder Apley IR to at least T10 in order to demonstrate improved R shoulder AROM for dressing 02/16/24: T11, painful 03/17/24: STG Duration 6 weeks NOT MET Transverse Abdominal Muscle Nurse Goal (LTG) Pt will improve R shoulder Apley IR to at least T8 in order to demonstrate improved R shoulder AROM for dressing LTG Duration 12 weeks Two Impairment AROM Impairment R shoulder Apley ER to occiput Short Term Goal (STG) Pt will improve R shoulder apley ER test to at least T2 without compensation in order to demonstrate improved AROM for grooming and dressing 02/16/24: C7, painful 03/17/24: STG Duration 6 weeks NOT MET Transverse Abdominal Muscle Nurse Goal (LTG) Pt will improve R shoulder apley ER test to at least T4 without compensation in order to demonstrate improved AROM for grooming and dressing LTG Duration 12 weeks One Impairment quickdash Impairment score 37, 59% Short Term Goal (STG) Pt will decrease quickdash score by at least 5% in order to demonstrate improvements in R shoulder pain management and QOL 03/17/24: STG Duration 6 weeks Transverse Abdominal Muscle Nurse Goal (LTG) Pt will decrease quickdash score by at least 11% in order to demonstrate improvements in R shoulder pain management and QOL LTG Duration 12 weeks Assessment Summary Assessment Pt tolerated session well. Able to progress to 1# dumbbell for all sidelying exercises. Pt with good carryover regarding scapular setting prior to performing lifts. Trialed modified landmine press for rotator cuff strengthening and to simulate pushing. Pt pain free , able to perform with good ROM. Pt continues to lack full ER, but demonstrates improved overhead reaching with flexion and abduction. Emphasis on thoracic mobility. Will continue with improving functional strength and R shoulder IR in future sessions . Pt has less tenderness of rotator cuff and periscapular muscles. Pt would benefit from skilled PT for R shoulder mobility and strengthening in order to improve activity tolerance and ability to perform ADLs. Physical Therapy Plan Frequency and Duration Frequency of Treatment 2x/Week Duration of treatment (weeks) 12 Plan of Care Start Date 01/21/24 Plan of Care End Date 04/16/24 Therapeutic Interventions Therapeutic Interventions Aquatic Therapy,Coordination Training,Gait Training,Home Exercise Program,Joint Mobilizations,Manual Therapy, Neuromuscular Re-education, Orthotic/Prosthetic Management ,Patient/Caregiver Education, Self-Care/Home Management, Sensory Integration,Soft Tissue Mobilization,Taping, Therapeutic Activities, Therapeutic Exercises Modalities Cold Pack/Ice Massage,Electric Stimulation,Hot Packs, Ultrasound,Vasopneumatic Devices Next Visit Focus/Plan Next Note Type Progress Note Next Visit Plan plank taps, land mine press, IR towel and eccentric IR, trial scaption Take ROM before/after manual and exercise tx; R IR, serratus roll, resistance with sidelying trio, shoulder taps , NM control with activity. Add wall walks to HEP, banded W, PNF/cheerleader, serratus roll w/ foam roller,dolphin plank, serratus slide Manual: grade II-III mobilizations to R shoulder, AC joint, 1st rib; STM to CS, No grade IV mobilizations
--- NOTE | 2024-04-09 13:07 | PT.OTN ---
Current Diagnoses Other chronic pain (04/09/24) Pain in unspecified shoulder (04/09/24) Physical Therapy Treatment Note PT-OP-A Visit Information Start: 01/21/24 08:11 Freq: Status: Active Protocol: Document 04/09/24 08:21 NM (Rec: 04/09/24 09:01 NM [id number]) Out-Patient Physical Therapy Visit Information Visit Information Visit Type Progress Note Visit Note KX after 19 visits Visit Start Time 08:20 Visit Stop Time 09:00 Visit Number 18 Evaluation Information Evaluation Date 01/21/24 Precautions Precautions osteopenia, possibly osteoporosis PT-OP-B Current Condition Start: 01/21/24 08:11 Freq: Status: Active Protocol: Document 01/21/24 10:30 NM (Rec: 01/21/24 13:02 NM [id number]) Current Condition History of Current Condition Onset Date 3-4 months worsening Current Complaints pain, mobility History of Current Condition Pt presents with R shoulder pain that has been progressively worsening. 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 She reports that the pain is debilitating. She performs yoga, pilates, weight training, dancing. Pt has pain with arm elevation, dressing, sleeping (usually sleeps on R side, propped on pillow which leads to less pain), eccentric lowering of arm. She reports pain comes and goes. She has been seeing a chiropractor for pain without relief, every couple of weeks. At this time, not planning to have surgery. Denies neck pain, numbness/ tingling. Has crepitus in shoulder; no reports of locking/stuck. No pain at rest PT-OP-C Subjective Start: 01/21/24 08:11 Freq: Status: Active Protocol: Document 04/09/24 08:21 NM (Rec: 04/09/24 09:01 NM [id number]) OP-PT Subjective Patient Comments Patient Comments Pt reports shoulder tired, but denies pain or discomfort. She occasionally feels it when she moves her arm occasionally yesterday. Took the day off yesterday. No arnica PT-OP-E Functional Tests Start: 01/21/24 08:11 Freq: Status: Active Protocol: Document 01/21/24 10:30 NM (Rec: 01/21/24 13:02 NM [id number]) Functional Tests Apley's Scratch Test Action 1- Left post scapular Action 1- Right to AC joint, pain Action 2- Left T4 Action 2- Right to occiput base, T2 with head flexion, pain Action 3- Left T4 Action 3- Right T12, pain PT-OP-F Manual Assessment Start: 01/21/24 08:11 Freq: Status: Active Protocol: Document 01/21/24 10:30 NM (Rec: 01/21/24 13:02 NM [id number]) Manual Assessments Soft Tissue Assessment Soft Tissue Mobility Assessment Atrophy of R paraspinals, upper trapezius compared to LUE. Joint Mobility Assessment Joint Mobility Assessment Decreased passive and active AROM of R shoulder, empty end feel. Anterior humeral position. Worse with abduction , IR, ER. Decreased AC joint space. 1st rib does not appear elevated with CRLF test PT-OP-H Neuro Start: 01/21/24 08:11 Freq: Status: Active Protocol: Document 01/21/24 10:30 NM (Rec: 01/21/24 13:02 NM [id number]) Sensation Evaluation Comments Summary Comments BUE intact to light touch sensation bilaterally PT-OP-J Posture/Palpation/Skin Start: 01/21/24 08:11 Freq: Status: Active Protocol: Document 01/21/24 10:30 NM (Rec: 01/21/24 13:02 NM [id number]) Posture Evaluation Position Standing Head/C-Spine Posture Forward Head T-Spine Posture Rotation Left,Increased Kyphosis Shoulder Posture (L) Rounded,(R) Rounded,(L) Forward,(R) Forward Comments Posture Comments R shoulder slightly elevated, possible R thoracic curve, protraction Palpation Assessment Location R shoulder Palpation Findings Soft Tissue Tightness, Tenderness Palpation Details tenderness at posterior cuff origin and insertion. Tightness at R lat No tenderness at LH biceps PT-OP-K Range of Motion Start: 01/21/24 08:11 Freq: Status: Active Protocol: Document 04/09/24 08:21 NM (Rec: 04/09/24 09:01 NM [id number]) Shoulder Goniometric Range of Motion Shoulder Right AROM Flexion 130 Abduction 135 External Rotation at 0 degrees Abduction 45 Internal Rotation Behind Back (text) T10 Comments IE: 110 deg flex, 70 deg abd, 35 deg ER at 0 deg, 65 deg IR; All motions painful 02/16/24: 130 flex and abduction, min pain with abduction 5/22/24: (premanual) 127 deg flex, 130 deg abd before scaption, 40 deg ER 04/09/24: 130 flex, 135 abd in scaption, T1 ER apley, T10 IR apley PT-OP-L Special Tests Start: 01/21/24 08:11 Freq: Status: Active Protocol: Document 01/21/24 10:30 NM (Rec: 01/21/24 13:02 NM [id number]) Special Tests Cervical Spine Special Tests Traction Test Results - Spurling's Test Test Results - Shoulder Special Tests Empty Can Test Results + Comments ER worse than IR External Rotation Lag Sign Test Results + Drop Arm Rotator Cuff Test Results - Elevation Impingement Test Results + PT-OP-M Strength Start: 01/21/24 08:11 Freq: Status: Active Protocol: Document 04/09/24 08:21 NM (Rec: 04/09/24 09:01 NM [id number]) Shoulder Strength Shoulder Manual Muscle Testing Right Flexion 4 Good Abduction (C5) 4 Good External Rotation 4 Good Internal Rotation 4 Good Comments IE: 3+/5 for all; pain with ER , abd 02/16/24: 4-/5 today 03/17/24: 4-/5 today for IR and ABD (min pain with resistance ), 4/5 for ER and flex 04/09/24: 4/5 without pain PT-OP-Q Treatments Start: 01/21/24 08:11 Freq: Status: Active Protocol: Document 04/09/24 08:21 NM (Rec: 04/09/24 09:01 NM [id number]) Therapeutic Exercises Sidelying Exercises internal shoulder rotation Sidelying Exercise Name @ 45 deg abd Side right Resistance AROM Reps/Minutes 2x10 Comments cued slower motion external rotation Side right Resistance 1# Equipment Used towel roll Reps/Minutes 5x3 concentric, 3 isometric, 3 eccentric Comments improved form, less crepitus abduction Sidelying Exercise Name HABD Side right Resistance 1# db Reps/Minutes 8 Comments cued scap retraction/setting prior, fatiguing today flexion Side right Resistance 1# Reps/Minutes 8 Standing Exercises raises Standing Exercise Name trialed: scaption Side bilateral Resistance AROM Reps/Minutes 10 Comments cued no head flexion compensation IR Standing Exercise Name IR/ADD towel stretch Side right Equipment Used L assist R Reps/Minutes 5x10 Comments pain free shoulder flexion+ER Side bilateral Resistance level 1 band Equipment Used around forearms Reps/Minutes 15 Comments pain free; full ROM Row Standing Exercise Name 1. low row, 2. mid row Side bilateral Resistance level 2 band Reps/Minutes 2x10 ea Comments improved form Manual Therapy Treatment Soft Tissue Mobilization right shoulder Body Location rotator cuff, lat, periscapulars, LS Mobilization Type Rolling Intensity/Depth Moderate Body Position Sidelying Comments Less tenderness of all muscles . increased tightness at LS/UT and rotator cuff but no tenderness, reduced with rolling Joint Mobilizations scapular Joint right scapula Direction into adduction and depression, rotation Grade III Body Position Sidelying Reps/Duration 1x10 Comments Improved mobility and coordination GH Joint right GH Direction inf and post Grade III Body Position Hooklying Reps/Duration 4x30 Comments During A-P mobilization, bias into ER at 90 deg abd. Decreased inferior glide. Demos less pain free crepitus and clunking. PT-OP-T Assessment and Plan Start: 01/21/24 08:11 Freq: Status: Active Protocol: Document 04/09/24 08:21 NM (Rec: 04/09/24 09:01 NM [id number]) Physical Therapy Assessment Goals Six Impairment HEP Short Term Goal (STG) Pt will report compliance with HEP at least 2-3x/wk in order to maximize progression with PT 02/16/24: states doing every day STG Duration 6 weeks MET [facility] Goal (LTG) Pt will report compliance with HEP at least 3x/wk in order to transition into maintenance program upon discharge from PT 03/17/24: performing HEP every other day LTG Duration 12 weeks MET Five Impairment strength Impairment R shoulder abduction/ER/ flexion/IR 3+/5 MMT Short Term Goal (STG) Pt will increase R shoulder abduction/flexion/ER/IR strength to at least 4-/5 MMT in order to demonstrate improved shoulder strength during lifting, ADLs 02/16/24: 4-/5 for all, less pain but continues to have pain with abduction 03/17/24: 4/5 for flex and ER, pain free; 4-/5 for IR and abd (min pain with IR) STG Duration 6 weeks MET, PROGRESSING [facility] Goal (LTG) Pt will increase R shoulder abduction/flexion/ER/IR strength to at least 4+/5 MMT in order to demonstrate improved shoulder strength during lifting, ADLs 03/17/24: 4/5 for flex and ER, pain free; 4-/5 for IR and abd (min pain with IR) 04/09/24: 4/5 without pain - GOAL MET, updated 04/09 to 4+/5 LTG Duration 12 weeks MET; goal updated Four Impairment AROM Impairment R shoulder abduction 70 deg, R shoulder flexion 110 deg Short Term Goal (STG) Pt will improve R shoulder abduction AROM to at least 90 deg and R shoulder flexion AROM to at least 120 deg in order to demonstrate increased ability to reach overhead during ADLs/IADLs 02/16/24: 130 deg flexion w/o pain, 140 deg with scaption, 130 deg abduction STG Duration 6 weeks MET Lighting Director Goal (LTG) Pt will improve R shoulder abduction AROM and R shoulder flexion AROM to at least 135 deg in order to demonstrate increased ability to reach overhead during ADLs/IADLs 02/16/24: 130 deg flexion w/o pain, 140 deg with scaption, 130 deg abduction; demos slight upper trapezius compensation with all 04/09/24: 130 flex, 135 abd in scaption, T1 ER apley, T10 IR apley LTG Duration 12 weeks PARTIALLY MET, PROGRESSING/UPDATED 04/09/24 Three Impairment AROM Impairment R shoulder Apley IR to T12 Short Term Goal (STG) Pt will improve R shoulder Apley IR to at least T10 in order to demonstrate improved R shoulder AROM for dressing 02/16/24: T11, painful 04/09/24 T10, painfree STG Duration 6 weeks NOT MET Lighting Director Goal (LTG) Pt will improve R shoulder Apley IR to at least T8 in order to demonstrate improved R shoulder AROM for dressing 04/09/24: T10 IR apley LTG Duration 12 weeks NOT MET, PROGRESSING Two Impairment AROM Impairment R shoulder Apley ER to occiput Short Term Goal (STG) Pt will improve R shoulder apley ER test to at least T2 without compensation in order to demonstrate improved AROM for grooming and dressing 02/16/24: C7, painful 03/17/24: STG Duration 6 weeks NOT MET [facility] Goal (LTG) Pt will improve R shoulder apley ER test to at least T4 without compensation in order to demonstrate improved AROM for grooming and dressing 04/09/24: T1 ER apley LTG Duration 12 weeks NOT MET, PROGRESSING One Impairment quickdash Impairment score 37, 59% Short Term Goal (STG) Pt will decrease quickdash score by at least 5% in order to demonstrate improvements in R shoulder pain management and QOL STG Duration 6 weeks [facility] Goal (LTG) Pt will decrease quickdash score by at least 11% in order to demonstrate improvements in R shoulder pain management and QOL LTG Duration 12 weeks Assessment Summary Assessment Pt tolerated session well. Trialed AROM scaption and sidelying IR. Pt fatigues easily, but demonstrates improved range of motion in scaption against gravity. Unable to tolerate resistance yet. Pt continues to respond well to therapeutic exercise and would benefit from further strengthening to improve scapular control and rotator cuff activation. Physical Therapy Plan Frequency and Duration Frequency of Treatment 1x/Week Duration of treatment (weeks) 8 Plan of Care Start Date 04/09/24 Plan of Care End Date 06/04/24 Therapeutic Interventions Therapeutic Interventions Aquatic Therapy,Coordination Training,Gait Training,Home Exercise Program,Joint Mobilizations,Manual Therapy, Neuromuscular Re-education, Orthotic/Prosthetic Management ,Patient/Caregiver Education, Self-Care/Home Management, Sensory Integration,Soft Tissue Mobilization,Taping, Therapeutic Activities, Therapeutic Exercises Modalities Cold Pack/Ice Massage,Electric Stimulation,Hot Packs, Ultrasound,Vasopneumatic Devices Next Visit Focus/Plan Next Note Type Treatment Note Next Visit Plan plank taps, land mine press, IR towel and eccentric IR, trial scaption Take ROM before/after manual and exercise tx; R IR, serratus roll, resistance with sidelying trio, shoulder taps , NM control with activity. Add wall walks to HEP, banded W, PNF/cheerleader, serratus roll w/ foam roller,dolphin plank, serratus slide Manual: grade II-III mobilizations to R shoulder, AC joint, 1st rib; STM to CS, No grade IV mobilizations
--- NOTE | 2024-04-09 13:08 | PT.OPPOC ---
Physical, Occupational & Speech Therapy At [facility] Current Diagnoses Other chronic pain (04/09/24) Pain in unspecified shoulder (04/09/24) Visit Care Team Role Provider Type Malorie Mota DO Attending Provider Physician Family Provider Primary Care Provider Referring Provider Specialty: Medical Address: [address] [place] [address], [address], [place], [address] Email: [email or web address] Plan Of Care PT-OP-T Assessment and Plan Start: 01/21/24 08:11 Freq: Status: Active Protocol: Document 04/09/24 08:21 NM (Rec: 04/09/24 09:01 NM [id number]) Physical Therapy Assessment Goals Six Impairment HEP Short Term Goal (STG) Pt will report compliance with HEP at least 2-3x/wk in order to maximize progression with PT 02/16/24: states doing every day STG Duration 6 weeks MET [facility] Goal (LTG) Pt will report compliance with HEP at least 3x/wk in order to transition into maintenance program upon discharge from PT 03/17/24: performing HEP every other day LTG Duration 12 weeks MET Five Impairment strength Impairment R shoulder abduction/ER/ flexion/IR 3+/5 MMT Short Term Goal (STG) Pt will increase R shoulder abduction/flexion/ER/IR strength to at least 4-/5 MMT in order to demonstrate improved shoulder strength during lifting, ADLs 02/16/24: 4-/5 for all, less pain but continues to have pain with abduction 03/17/24: 4/5 for flex and ER, pain free; 4-/5 for IR and abd (min pain with IR) STG Duration 6 weeks MET, PROGRESSING [facility] Goal (LTG) Pt will increase R shoulder abduction/flexion/ER/IR strength to at least 4+/5 MMT in order to demonstrate improved shoulder strength during lifting, ADLs 03/17/24: 4/5 for flex and ER, pain free; 4-/5 for IR and abd (min pain with IR) 04/09/24: 4/5 without pain - GOAL MET, updated 04/09 to 4+/5 LTG Duration 12 weeks MET; goal updated Four Impairment AROM Impairment R shoulder abduction 70 deg, R shoulder flexion 110 deg Short Term Goal (STG) Pt will improve R shoulder abduction AROM to at least 90 deg and R shoulder flexion AROM to at least 120 deg in order to demonstrate increased ability to reach overhead during ADLs/IADLs 02/16/24: 130 deg flexion w/o pain, 140 deg with scaption, 130 deg abduction STG Duration 6 weeks MET [facility] Goal (LTG) Pt will improve R shoulder abduction AROM and R shoulder flexion AROM to at least 135 deg in order to demonstrate increased ability to reach overhead during ADLs/IADLs 02/16/24: 130 deg flexion w/o pain, 140 deg with scaption, 130 deg abduction; demos slight upper trapezius compensation with all 04/09/24: 130 flex, 135 abd in scaption, T1 ER apley, T10 IR apley LTG Duration 12 weeks PARTIALLY MET, PROGRESSING/UPDATED 04/09/24 Three Impairment AROM Impairment R shoulder Apley IR to T12 Short Term Goal (STG) Pt will improve R shoulder Apley IR to at least T10 in order to demonstrate improved R shoulder AROM for dressing 02/16/24: T11, painful 04/09/24 T10, painfree STG Duration 6 weeks NOT MET [facility] Goal (LTG) Pt will improve R shoulder Apley IR to at least T8 in order to demonstrate improved R shoulder AROM for dressing 04/09/24: T10 IR apley LTG Duration 12 weeks NOT MET, PROGRESSING Two Impairment AROM Impairment R shoulder Apley ER to occiput Short Term Goal (STG) Pt will improve R shoulder apley ER test to at least T2 without compensation in order to demonstrate improved AROM for grooming and dressing 02/16/24: C7, painful 03/17/24: STG Duration 6 weeks NOT MET [facility] Goal (LTG) Pt will improve R shoulder apley ER test to at least T4 without compensation in order to demonstrate improved AROM for grooming and dressing 04/09/24: T1 ER apley LTG Duration 12 weeks NOT MET, PROGRESSING One Impairment quickdash Impairment score 37, 59% Short Term Goal (STG) Pt will decrease quickdash score by at least 5% in order to demonstrate improvements in R shoulder pain management and QOL STG Duration 6 weeks [facility] Goal (LTG) Pt will decrease quickdash score by at least 11% in order to demonstrate improvements in R shoulder pain management and QOL LTG Duration 12 weeks Assessment Summary Assessment Pt has been seen x17 visits since December 2023 for R shoulder pain related to arthritis. She has made significant progress regarding ROM and strength since evaluation. Her ROM is still not within functional limits; however, pt reports that she is able to reach overhead better and with less pain during ADLs. She continues to have limitations in performing ADLs/IADLs due to strength deficits with her rotator cuff . Pt planning to have evaluation with a surgeon for possible joint replacement in upcoming weeks. In meantime, pt has difficulty with maintaining shoulder stabilization while lifting objects during ADLs or small resistance against gravity. Pt would benefit from further skilled PT to address rotator cuff and periscapular strength in order to improve ability to reach overhead, perform grooming, and for QOL. Physical Therapy Plan Frequency and Duration Frequency of Treatment 1x/Week Duration of treatment (weeks) 8 Plan of Care Start Date 04/09/24 Plan of Care End Date 06/04/24 Therapeutic Interventions Therapeutic Interventions Aquatic Therapy,Coordination Training,Gait Training,Home Exercise Program,Joint Mobilizations,Manual Therapy, Neuromuscular Re-education, Orthotic/Prosthetic Management ,Patient/Caregiver Education, Self-Care/Home Management, Sensory Integration,Soft Tissue Mobilization,Taping, Therapeutic Activities, Therapeutic Exercises Modalities Cold Pack/Ice Massage,Electric Stimulation,Hot Packs, Ultrasound,Vasopneumatic Devices Next Visit Focus/Plan Next Note Type Treatment Note Next Visit Plan plank taps, land mine press, IR towel and eccentric IR, trial scaption Take ROM before/after manual and exercise tx; R IR, serratus roll, resistance with sidelying trio, shoulder taps , NM control with activity. Add wall walks to HEP, banded W, PNF/cheerleader, serratus roll w/ foam roller,dolphin plank, serratus slide Manual: grade II-III mobilizations to R shoulder, AC joint, 1st rib; STM to CS, No grade IV mobilizations Plan of Care Dates Plan of Care Start Date 04/09/24 Plan of Care End Date 06/04/24 Electronically Signed by: aMrianna Romero, MANJULA 04/09/24 [id number] If you are in agreement with this Plan of Care, please return a signed and dated copy. I have reviewed this Plan of Care and certify that the skilled therapy services above are required to meet the patient?s needs. Physician Signature Date Printed Name and Credentials Clinical Instructor Signature Printed Name and Credentials
--- NOTE | 2024-04-13 10:24 | PT.OTN ---
Current Diagnoses Other chronic pain (04/13/24) Pain in unspecified shoulder (04/13/24) Physical Therapy Treatment Note PT-OP-A Visit Information Start: 01/21/24 08:11 Freq: Status: Active Protocol: Document 04/13/24 08:09 AB (Rec: 04/13/24 09:41 AB [id number]) Out-Patient Physical Therapy Visit Information Visit Information Visit Type Treatment Note Visit Note KX after 19 visits Visit [email or web address] Access [email or web address]: [email or web address] Visit Start Time 08:17 Visit Stop Time 08:58 Visit Number 19 Number of CASTING AGENT Visits 1 Evaluation Information Evaluation Date 01/21/24 Precautions Precautions osteopenia, possibly osteoporosis PT-OP-B Current Condition Start: 01/21/24 08:11 Freq: Status: Active Protocol: Document 01/21/24 10:30 NM (Rec: 01/21/24 13:02 NM [id number]) Current Condition History of Current Condition Onset Date 3-4 months worsening Current Complaints pain, mobility History of Current Condition Pt presents with R shoulder pain that has been progressively worsening. 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 She reports that the pain is debilitating. She performs yoga, pilates, weight training, dancing. Pt has pain with arm elevation, dressing, sleeping (usually sleeps on R side, propped on pillow which leads to less pain), eccentric lowering of arm. She reports pain comes and goes. She has been seeing a chiropractor for pain without relief, every couple of weeks. At this time, not planning to have surgery. Denies neck pain, numbness/ tingling. Has crepitus in shoulder; no reports of locking/stuck. No pain at rest PT-OP-C Subjective Start: 01/21/24 08:11 Freq: Status: Active Protocol: Document 04/13/24 08:09 AB (Rec: 04/13/24 09:41 AB [id number]) OP-PT Subjective Patient Comments Patient Comments Patient reports she is doing more things with the shoulder. Patient comments she had 3 weeks of complete rest and that helped her shoulder, less crackling.116 deg AROM right shoulder flexion start of session. PT-OP-E Functional Tests Start: 01/21/24 08:11 Freq: Status: Active Protocol: Document 01/21/24 10:30 NM (Rec: 03/27/24 13:02 NM [id number]) Functional Tests Apley's Scratch Test Action 1- Left post scapular Action 1- Right to AC joint, pain Action 2- Left T4 Action 2- Right to occiput base, T2 with head flexion, pain Action 3- Left T4 Action 3- Right T12, pain PT-OP-F Manual Assessment Start: 01/21/24 08:11 Freq: Status: Active Protocol: Document 01/21/24 10:30 NM (Rec: 01/21/24 13:02 NM [id number]) Manual Assessments Soft Tissue Assessment Soft Tissue Mobility Assessment Atrophy of R paraspinals, upper trapezius compared to LUE. Joint Mobility Assessment Joint Mobility Assessment Decreased passive and active AROM of R shoulder, empty end feel. Anterior humeral position. Worse with abduction , IR, ER. Decreased AC joint space. 1st rib does not appear elevated with CRLF test PT-OP-H Neuro Start: 01/21/24 08:11 Freq: Status: Active Protocol: Document 01/21/24 10:30 NM (Rec: 01/21/24 13:02 NM [id number]) Sensation Evaluation Comments Summary Comments BUE intact to light touch sensation bilaterally PT-OP-J Posture/Palpation/Skin Start: 01/21/24 08:11 Freq: Status: Active Protocol: Document 01/21/24 10:30 NM (Rec: 01/21/24 13:02 NM [id number]) Posture Evaluation Position Standing Head/C-Spine Posture Forward Head T-Spine Posture Rotation Left,Increased Kyphosis Shoulder Posture (L) Rounded,(R) Rounded,(L) Forward,(R) Forward Comments Posture Comments R shoulder slightly elevated, possible R thoracic curve, protraction Palpation Assessment Location R shoulder Palpation Findings Soft Tissue Tightness, Tenderness Palpation Details tenderness at posterior cuff origin and insertion. Tightness at R lat No tenderness at LH biceps PT-OP-K Range of Motion Start: 01/21/24 08:11 Freq: Status: Active Protocol: Document 04/09/24 08:21 NM (Rec: 04/09/24 09:01 NM [id number]) Shoulder Goniometric Range of Motion Shoulder Right AROM Flexion 130 Abduction 135 External Rotation at 0 degrees Abduction 45 Internal Rotation Behind Back (text) T10 Comments IE: 110 deg flex, 70 deg abd, 35 deg ER at 0 deg, 65 deg IR; All motions painful 02/16/24: 130 flex and abduction, min pain with abduction 03/17/24: (premanual) 127 deg flex, 130 deg abd before scaption, 40 deg ER 04/09/24: 130 flex, 135 abd in scaption, T1 ER apley, T10 IR apley PT-OP-L Special Tests Start: 01/21/24 08:11 Freq: Status: Active Protocol: Document 01/21/24 10:30 NM (Rec: 01/21/24 13:02 NM [id number]) Special Tests Cervical Spine Special Tests Traction Test Results - Spurling's Test Test Results - Shoulder Special Tests Empty Can Test Results + Comments ER worse than IR External Rotation Lag Sign Test Results + Drop Arm Rotator Cuff Test Results - Elevation Impingement Test Results + PT-OP-M Strength Start: 01/21/24 08:11 Freq: Status: Active Protocol: Document 04/09/24 08:21 NM (Rec: 04/09/24 09:01 NM [id number]) Shoulder Strength Shoulder Manual Muscle Testing Right Flexion 4 Good Abduction (C5) 4 Good External Rotation 4 Good Internal Rotation 4 Good Comments IE: 3+/5 for all; pain with ER , abd 02/16/24: 4-/5 today 03/17/24: 4-/5 today for IR and ABD (min pain with resistance ), 4/5 for ER and flex 04/09/24: 4/5 without pain PT-OP-Q Treatments Start: 01/21/24 08:11 Freq: Status: Active Protocol: Document 04/13/24 08:09 AB (Rec: 04/13/24 09:41 AB [id number]) Therapeutic Exercises Supine Exercises mini band Supine Exercise Name shoulder er with band with flexion Side bilateral Resistance lvl 1 tb Reps/Minutes X10 Prone Exercises plank Prone Exercise Name on forearms Equipment Used X1 Reps/Minutes 45 seconds Sidelying Exercises open book Side bilateral Resistance 1 lb on set of 5 Reps/Minutes X 2 and X5 each side Comments verbal and tactile cues Standing Exercises counter plank on forearms Standing Exercise Name 1. on hands 2. with shoulder taps Side bilateral Equipment Used counter Reps/Minutes 30 sec X 2 for planks, taps X 10 Comments verbal cues, marisel for pain ( taps to HEP) RTC TB Standing Exercise Name Mini band ER with flexion Side bilateral Resistance level 1 band Reps/Minutes X10 Comments monitored for pain push up plus Side bilateral Resistance AROM Reps/Minutes X10 Comments monitored for pain Other Exercises plank Other Exercise Name on forearms to HEP Reps/Minutes 45 sec X 1 Comments monitored for pain child's pose Side bilateral Reps/Minutes 3x15 Manual Therapy Treatment Soft Tissue Mobilization right shoulder Body Location rotator cuff, lat, periscapulars, levator scap/UT Mobilization Type Cross-Friction,Rolling, Sustained Pressure Intensity/Depth Moderate Body Position Sidelying Comments Less tenderness of all muscles . increased tightness at LS/UT and rotator cuff but no tenderness, reduced with rolling Joint Mobilizations scapular Joint right scapula Direction into adduction and depression, rotation Grade III Body Position Sidelying Reps/Duration 1x10 Comments Improved mobility and coordination GH Joint right GH Direction inf and post Grade III Body Position Hooklying Reps/Duration 3X10 Comments During A-P mobilization, bias into ER at 90 deg abd. Decreased inferior glide. Demos less pain free crepitus and clunking. PT-OP-T Assessment and Plan Start: 01/21/24 08:11 Freq: Status: Active Protocol: Document 04/13/24 08:09 AB (Rec: 04/13/24 09:41 AB [id number]) Physical Therapy Assessment Goals Six Impairment HEP Short Term Goal (STG) Pt will report compliance with HEP at least 2-3x/wk in order to maximize progression with PT 02/16/24: states doing every day STG Duration 6 weeks MET [employer] Goal (LTG) Pt will report compliance with HEP at least 3x/wk in order to transition into maintenance program upon discharge from PT 03/17/24: performing HEP every other day LTG Duration 12 weeks MET Five Impairment strength Impairment R shoulder abduction/ER/ flexion/IR 3+/5 MMT Short Term Goal (STG) Pt will increase R shoulder abduction/flexion/ER/IR strength to at least 4-/5 MMT in order to demonstrate improved shoulder strength during lifting, ADLs 02/16/24: 4-/5 for all, less pain but continues to have pain with abduction 03/17/24: 4/5 for flex and ER, pain free; 4-/5 for IR and abd (min pain with IR) STG Duration 6 weeks MET, PROGRESSING [employer] Goal (LTG) Pt will increase R shoulder abduction/flexion/ER/IR strength to at least 4+/5 MMT in order to demonstrate improved shoulder strength during lifting, ADLs 03/17/24: 4/5 for flex and ER, pain free; 4-/5 for IR and abd (min pain with IR) 04/09/24: 4/5 without pain - GOAL MET, updated 04/09 to 4+/5 LTG Duration 12 weeks MET; goal updated Four Impairment AROM Impairment R shoulder abduction 70 deg, R shoulder flexion 110 deg Short Term Goal (STG) Pt will improve R shoulder abduction AROM to at least 90 deg and R shoulder flexion AROM to at least 120 deg in order to demonstrate increased ability to reach overhead during ADLs/IADLs 02/16/24: 130 deg flexion w/o pain, 140 deg with scaption, 130 deg abduction STG Duration 6 weeks MET [employer] Goal (LTG) Pt will improve R shoulder abduction AROM and R shoulder flexion AROM to at least 135 deg in order to demonstrate increased ability to reach overhead during ADLs/IADLs 02/16/24: 130 deg flexion w/o pain, 140 deg with scaption, 130 deg abduction; demos slight upper trapezius compensation with all 04/09/24: 130 flex, 135 abd in scaption, T1 ER apley, T10 IR apley LTG Duration 12 weeks PARTIALLY MET, PROGRESSING/UPDATED 04/09/24 Three Impairment AROM Impairment R shoulder Apley IR to T12 Short Term Goal (STG) Pt will improve R shoulder Apley IR to at least T10 in order to demonstrate improved R shoulder AROM for dressing 02/16/24: T11, painful 04/09/24 T10, painfree STG Duration 6 weeks NOT MET [facility] Goal (LTG) Pt will improve R shoulder Apley IR to at least T8 in order to demonstrate improved R shoulder AROM for dressing 04/09/24: T10 IR apley LTG Duration 12 weeks NOT MET, PROGRESSING Two Impairment AROM Impairment R shoulder Apley ER to occiput Short Term Goal (STG) Pt will improve R shoulder apley ER test to at least T2 without compensation in order to demonstrate improved AROM for grooming and dressing 02/16/24: C7, painful 03/17/24: STG Duration 6 weeks NOT MET [facility] Goal (LTG) Pt will improve R shoulder apley ER test to at least T4 without compensation in order to demonstrate improved AROM for grooming and dressing 04/09/24: T1 ER apley LTG Duration 12 weeks NOT MET, PROGRESSING One Impairment quickdash Impairment score 37, 59% Short Term Goal (STG) Pt will decrease quickdash score by at least 5% in order to demonstrate improvements in R shoulder pain management and QOL STG Duration 6 weeks [employer] Goal (LTG) Pt will decrease quickdash score by at least 11% in order to demonstrate improvements in R shoulder pain management and QOL LTG Duration 12 weeks Assessment Summary Assessment AROM right shoulder flexion 125 deg should allow Aracelis to reach items placed at higher levels in the home. Physical Therapy Plan Frequency and Duration Frequency of Treatment 1x/Week Duration of treatment (weeks) 8 Plan of Care Start Date 04/09/24 Plan of Care End Date 06/04/24 Next Visit Focus/Plan Next Note Type Treatment Note Next Visit Plan review counter plank taps, land mine press, IR towel and eccentric IR, trial scaption Take ROM before/after manual and exercise tx; R IR, serratus roll, resistance with sidelying trio, shoulder taps , NM control with activity. Add wall walks to HEP, banded W, PNF/cheerleader, serratus roll w/ foam roller,dolphin plank, serratus slide Manual: grade II-III mobilizations to R shoulder, AC joint, 1st rib; STM to CS, No grade IV mobilizations
--- NOTE | 2024-04-20 12:53 | PT.OTN ---
Current Diagnoses Other chronic pain (04/20/24) Pain in unspecified shoulder (04/20/24) Physical Therapy Treatment Note PT-OP-A Visit Information Start: 01/21/24 08:11 Freq: Status: Active Protocol: Document 04/20/24 07:28 NM (Rec: 04/20/24 08:16 NM [id number]) Out-Patient Physical Therapy Visit Information Visit Information Visit Type Treatment Note Visit Note KX after 19 visits Visit Start Time 07:32 Visit Stop Time 08:12 Visit Number 20 Evaluation Information Evaluation Date 01/21/24 Precautions Precautions osteopenia, possibly osteoporosis PT-OP-B Current Condition Start: 01/21/24 08:11 Freq: Status: Active Protocol: Document 01/21/24 10:30 NM (Rec: 01/21/24 13:02 NM [id number]) Current Condition History of Current Condition Onset Date 3-4 months worsening Current Complaints pain, mobility History of Current Condition Pt presents with R shoulder pain that has been progressively worsening. 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 She reports that the pain is debilitating. She performs yoga, pilates, weight training, dancing. Pt has pain with arm elevation, dressing, sleeping (usually sleeps on R side, propped on pillow which leads to less pain), eccentric lowering of arm. She reports pain comes and goes. She has been seeing a chiropractor for pain without relief, every couple of weeks. At this time, not planning to have surgery. Denies neck pain, numbness/ tingling. Has crepitus in shoulder; no reports of locking/stuck. No pain at rest PT-OP-C Subjective Start: 01/21/24 08:11 Freq: Status: Active Protocol: Document 04/20/24 07:28 NM (Rec: 04/20/24 08:16 NM [id number]) OP-PT Subjective Patient Comments Patient Comments Pt reports that since she is doing more things at home ( ADLs), she is having limited range again. She is compliant with HEP. She had an appt with Dr. Krause, who is considering a rTSA. She has been going to yoga, unable to do the same exercises due to limited R arm ROM. PT-OP-E Functional Tests Start: 01/21/24 08:11 Freq: Status: Active Protocol: Document 01/21/24 10:30 NM (Rec: 01/21/24 13:02 NM [id number]) Functional Tests Apley's Scratch Test Action 1- Left post scapular Action 1- Right to AC joint, pain Action 2- Left T4 Action 2- Right to occiput base, T2 with head flexion, pain Action 3- Left T4 Action 3- Right T12, pain PT-OP-F Manual Assessment Start: 01/21/24 08:11 Freq: Status: Active Protocol: Document 01/21/24 10:30 NM (Rec: 01/21/24 13:02 NM [id number]) Manual Assessments Soft Tissue Assessment Soft Tissue Mobility Assessment Atrophy of R paraspinals, upper trapezius compared to LUE. Joint Mobility Assessment Joint Mobility Assessment Decreased passive and active AROM of R shoulder, empty end feel. Anterior humeral position. Worse with abduction , IR, ER. Decreased AC joint space. 1st rib does not appear elevated with CRLF test PT-OP-H Neuro Start: 01/21/24 08:11 Freq: Status: Active Protocol: Document 01/21/24 10:30 NM (Rec: 01/21/24 13:02 NM [id number]) Sensation Evaluation Comments Summary Comments BUE intact to light touch sensation bilaterally PT-OP-J Posture/Palpation/Skin Start: 01/21/24 08:11 Freq: Status: Active Protocol: Document 01/21/24 10:30 NM (Rec: 01/21/24 13:02 NM [id number]) Posture Evaluation Position Standing Head/C-Spine Posture Forward Head T-Spine Posture Rotation Left,Increased Kyphosis Shoulder Posture (L) Rounded,(R) Rounded,(L) Forward,(R) Forward Comments Posture Comments R shoulder slightly elevated, possible R thoracic curve, protraction Palpation Assessment Location R shoulder Palpation Findings Soft Tissue Tightness, Tenderness Palpation Details tenderness at posterior cuff origin and insertion. Tightness at R lat No tenderness at LH biceps PT-OP-K Range of Motion Start: 01/21/24 08:11 Freq: Status: Active Protocol: Document 04/09/24 08:21 NM (Rec: 04/09/24 09:01 NM [id number]) Shoulder Goniometric Range of Motion Shoulder Right AROM Flexion 130 Abduction 135 External Rotation at 0 degrees Abduction 45 Internal Rotation Behind Back (text) T10 Comments IE: 110 deg flex, 70 deg abd, 35 deg ER at 0 deg, 65 deg IR; All motions painful 02/16/24: 130 flex and abduction, min pain with abduction 03/17/24: (premanual) 127 deg flex, 130 deg abd before scaption, 40 deg ER 04/09/24: 130 flex, 135 abd in scaption, T1 ER apley, T10 IR apley PT-OP-L Special Tests Start: 01/21/24 08:11 Freq: Status: Active Protocol: Document 01/21/24 10:30 NM (Rec: 01/21/24 13:02 NM [id number]) Special Tests Cervical Spine Special Tests Traction Test Results - Spurling's Test Test Results - Shoulder Special Tests Empty Can Test Results + Comments ER worse than IR External Rotation Lag Sign Test Results + Drop Arm Rotator Cuff Test Results - Elevation Impingement Test Results + PT-OP-M Strength Start: 01/21/24 08:11 Freq: Status: Active Protocol: Document 04/09/24 08:21 NM (Rec: 04/09/24 09:01 NM [id number]) Shoulder Strength Shoulder Manual Muscle Testing Right Flexion 4 Good Abduction (C5) 4 Good External Rotation 4 Good Internal Rotation 4 Good Comments IE: 3+/5 for all; pain with ER , abd 02/16/24: 4-/5 today 03/17/24: 4-/5 today for IR and ABD (min pain with resistance ), 4/5 for ER and flex 04/09/24: 4/5 without pain PT-OP-Q Treatments Start: 01/21/24 08:11 Freq: Status: Active Protocol: Document 04/20/24 07:28 NM (Rec: 04/20/24 08:16 NM [id number]) Therapeutic Exercises Standing Exercises serratus slide Standing Exercise Name protraction at wall with small ball circles CCW and CW Side right Reps/Minutes 4 sets of 5 circles ea direction Comments this is hard, pain free counter plank on forearms Standing Exercise Name with shoulder taps Side bilateral Reps/Minutes 10 taps RTC TB Standing Exercise Name Mini band ER with flexion Side bilateral Resistance level 1 band Reps/Minutes 10 Comments cued scapular setting prior to lifting Other Exercises plank Other Exercise Name bird dog (alternating) for single arm stability, FF reaching Reps/Minutes 10x10 Comments cued neutrial spine; improved post child post stretch child's pose Side bilateral Reps/Minutes 2x30 Comments between sets of bird dog Manual Therapy Treatment Soft Tissue Mobilization right shoulder Body Location rotator cuff, lat, periscapulars, levator scap/UT Mobilization Type Cross-Friction,Rolling, Sustained Pressure Intensity/Depth Moderate Body Position Sidelying Comments Less tenderness of all muscles . Less tightness at LS/UT and rotator cuff but no tenderness , less with soft tissue mobilization Joint Mobilizations GH Joint right GH Direction inf and post Grade III Body Position Hooklying Reps/Duration 2x30 Comments Demos crepitus and clunking. Biased into ER and IR at various degrees of abduction Self-Care/Home Management Treatment Education Patient Education Home Exercise Program Other Education HEP: wall plank tap PT-OP-T Assessment and Plan Start: 01/21/24 08:11 Freq: Status: Active Protocol: Document 04/20/24 07:28 NM (Rec: 04/20/24 08:16 NM [id number]) Physical Therapy Assessment Goals Six Impairment HEP Short Term Goal (STG) Pt will report compliance with HEP at least 2-3x/wk in order to maximize progression with PT 02/16/24: states doing every day STG Duration 6 weeks MET [employer] Goal (LTG) Pt will report compliance with HEP at least 3x/wk in order to transition into maintenance program upon discharge from PT 03/17/24: performing HEP every other day LTG Duration 12 weeks MET Five Impairment strength Impairment R shoulder abduction/ER/ flexion/IR 3+/5 MMT Short Term Goal (STG) Pt will increase R shoulder abduction/flexion/ER/IR strength to at least 4-/5 MMT in order to demonstrate improved shoulder strength during lifting, ADLs 02/16/24: 4-/5 for all, less pain but continues to have pain with abduction 03/17/24: 4/5 for flex and ER, pain free; 4-/5 for IR and abd (min pain with IR) STG Duration 6 weeks MET, PROGRESSING [employer] Goal (LTG) Pt will increase R shoulder abduction/flexion/ER/IR strength to at least 4+/5 MMT in order to demonstrate improved shoulder strength during lifting, ADLs 03/17/24: 4/5 for flex and ER, pain free; 4-/5 for IR and abd (min pain with IR) 04/09/24: 4/5 without pain - GOAL MET, updated 04/09 to 4+/5 LTG Duration 12 weeks MET; goal updated Four Impairment AROM Impairment R shoulder abduction 70 deg, R shoulder flexion 110 deg Short Term Goal (STG) Pt will improve R shoulder abduction AROM to at least 90 deg and R shoulder flexion AROM to at least 120 deg in order to demonstrate increased ability to reach overhead during ADLs/IADLs 02/16/24: 130 deg flexion w/o pain, 140 deg with scaption, 130 deg abduction STG Duration 6 weeks MET [employer] Goal (LTG) Pt will improve R shoulder abduction AROM and R shoulder flexion AROM to at least 135 deg in order to demonstrate increased ability to reach overhead during ADLs/IADLs 02/16/24: 130 deg flexion w/o pain, 140 deg with scaption, 130 deg abduction; demos slight upper trapezius compensation with all 04/09/24: 130 flex, 135 abd in scaption, T1 ER apley, T10 IR apley LTG Duration 12 weeks PARTIALLY MET, PROGRESSING/UPDATED 04/09/24 Three Impairment AROM Impairment R shoulder Apley IR to T12 Short Term Goal (STG) Pt will improve R shoulder Apley IR to at least T10 in order to demonstrate improved R shoulder AROM for dressing 02/16/24: T11, painful 04/09/24 T10, painfree STG Duration 6 weeks NOT MET [employer] Goal (LTG) Pt will improve R shoulder Apley IR to at least T8 in order to demonstrate improved R shoulder AROM for dressing 04/09/24: T10 IR apley LTG Duration 12 weeks NOT MET, PROGRESSING Two Impairment AROM Impairment R shoulder Apley ER to occiput Short Term Goal (STG) Pt will improve R shoulder apley ER test to at least T2 without compensation in order to demonstrate improved AROM for grooming and dressing 02/16/24: C7, painful 03/17/24: STG Duration 6 weeks NOT MET [employer] Goal (LTG) Pt will improve R shoulder apley ER test to at least T4 without compensation in order to demonstrate improved AROM for grooming and dressing 04/09/24: T1 ER apley LTG Duration 12 weeks NOT MET, PROGRESSING One Impairment quickdash Impairment score 37, 59% Short Term Goal (STG) Pt will decrease quickdash score by at least 5% in order to demonstrate improvements in R shoulder pain management and QOL STG Duration 6 weeks [employer] Goal (LTG) Pt will decrease quickdash score by at least 11% in order to demonstrate improvements in R shoulder pain management and QOL LTG Duration 12 weeks Assessment Summary Assessment Pt tolerated session well and demonstrates good response to therapeutic exercise. Continued with periscapular and rotator cuff strengthening . She fatigues easily and can do limited reps; however, improved activity tolerance and improved resistance. Emphasis on single arm stability and core stabilization with bird dogs and wall plank taps. Pt finds exercises challenging but is pain free. She is able to do the plank shoulder tap on the wall today with less cueing and improved form. Pt would benefit from skilled PT to maximize R shoulder mobility and strength in order to improve activity tolerance and ability to perform ADLs Physical Therapy Plan Frequency and Duration Frequency of Treatment 1x/Week Duration of treatment (weeks) 8 Plan of Care Start Date 04/09/24 Plan of Care End Date 06/04/24 Therapeutic Interventions Therapeutic Interventions Aquatic Therapy,Coordination Training,Gait Training,Home Exercise Program,Joint Mobilizations,Manual Therapy, Neuromuscular Re-education, Orthotic/Prosthetic Management ,Patient/Caregiver Education, Self-Care/Home Management, Sensory Integration,Soft Tissue Mobilization,Taping, Therapeutic Activities, Therapeutic Exercises Modalities Cold Pack/Ice Massage,Electric Stimulation,Hot Packs, Ultrasound,Vasopneumatic Devices Next Visit Focus/Plan Next Note Type Treatment Note Next Visit Plan Focus on periscapular strengthening. Retry scaption raises and deltoid strengthening land mine press, IR towel and eccentric IR, trial scaption Take ROM before/after manual and exercise tx; R IR, serratus roll, resistance with sidelying trio, shoulder taps , NM control with activity. Add wall walks to HEP, banded W, PNF/cheerleader, serratus roll w/ foam roller,dolphin plank, serratus slide Manual: grade II-III mobilizations to R shoulder, AC joint, 1st rib; STM to CS, No grade IV mobilizations
--- NOTE | 2024-04-28 12:49 | PT.OTN ---
Current Diagnoses Other chronic pain (04/28/24) Pain in unspecified shoulder (04/28/24) Physical Therapy Treatment Note PT-OP-A Visit Information Start: 01/21/24 08:11 Freq: Status: Active Protocol: Document 04/28/24 08:57 AB (Rec: 04/28/24 10:33 AB [id number]) Out-Patient Physical Therapy Visit Information Visit Information Visit Type Treatment Note Visit Note KX after 19 visits Visit Start Time 09:48 Visit Stop Time 10:31 Visit Number 21 Number of [employer]IST Visits 1 Evaluation Information Evaluation Date 01/21/24 Precautions Precautions osteopenia, possibly osteoporosis PT-OP-B Current Condition Start: 01/21/24 08:11 Freq: Status: Active Protocol: Document 01/21/24 10:30 NM (Rec: 01/21/24 13:02 NM [id number]) Current Condition History of Current Condition Onset Date 3-4 months worsening Current Complaints pain, mobility History of Current Condition Pt presents with R shoulder pain that has been progressively worsening. 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 She reports that the pain is debilitating. She performs yoga, pilates, weight training, dancing. Pt has pain with arm elevation, dressing, sleeping (usually sleeps on R side, propped on pillow which leads to less pain), eccentric lowering of arm. She reports pain comes and goes. She has been seeing a chiropractor for pain without relief, every couple of weeks. At this time, not planning to have surgery. Denies neck pain, numbness/ tingling. Has crepitus in shoulder; no reports of locking/stuck. No pain at rest PT-OP-C Subjective Start: 01/21/24 08:11 Freq: Status: Active Protocol: Document 04/28/24 08:57 AB (Rec: 04/28/24 10:33 AB [id number]) OP-PT Subjective Patient Comments Patient Comments Patient reports the shoulder is sore, been doing more has company coming. Patient reports discomfort with some of the exercises PT-OP-E Functional Tests Start: 01/21/24 08:11 Freq: Status: Active Protocol: Document 01/21/24 10:30 NM (Rec: 01/21/24 13:02 NM [id number]) Functional Tests Vivianaey's Scratch Test Action 1- Left post scapular Action 1- Right to AC joint, pain Action 2- Left T4 Action 2- Right to occiput base, T2 with head flexion, pain Action 3- Left T4 Action 3- Right T12, pain PT-OP-F Manual Assessment Start: 01/21/24 08:11 Freq: Status: Active Protocol: Document 01/21/24 10:30 NM (Rec: 01/21/24 13:02 NM [id number]) Manual Assessments Soft Tissue Assessment Soft Tissue Mobility Assessment Atrophy of R paraspinals, upper trapezius compared to LUE. Joint Mobility Assessment Joint Mobility Assessment Decreased passive and active AROM of R shoulder, empty end feel. Anterior humeral position. Worse with abduction , IR, ER. Decreased AC joint space. 1st rib does not appear elevated with CRLF test PT-OP-H Neuro Start: 01/21/24 08:11 Freq: Status: Active Protocol: Document 01/21/24 10:30 NM (Rec: 01/21/24 13:02 NM [id number]) Sensation Evaluation Comments Summary Comments BUE intact to light touch sensation bilaterally PT-OP-J Posture/Palpation/Skin Start: 01/21/24 08:11 Freq: Status: Active Protocol: Document 01/21/24 10:30 NM (Rec: 01/21/24 13:02 NM [id number]) Posture Evaluation Position Standing Head/C-Spine Posture Forward Head T-Spine Posture Rotation Left,Increased Kyphosis Shoulder Posture (L) Rounded,(R) Rounded,(L) Forward,(R) Forward Comments Posture Comments R shoulder slightly elevated, possible R thoracic curve, protraction Palpation Assessment Location R shoulder Palpation Findings Soft Tissue Tightness, Tenderness Palpation Details tenderness at posterior cuff origin and insertion. Tightness at R lat No tenderness at LH biceps PT-OP-K Range of Motion Start: 01/21/24 08:11 Freq: Status: Active Protocol: Document 04/09/24 08:21 NM (Rec: 04/09/24 09:01 NM [id number]) Shoulder Goniometric Range of Motion Shoulder Right AROM Flexion 130 Abduction 135 External Rotation at 0 degrees Abduction 45 Internal Rotation Behind Back (text) T10 Comments IE: 110 deg flex, 70 deg abd, 35 deg ER at 0 deg, 65 deg IR; All motions painful 02/16/24: 130 flex and abduction, min pain with abduction 03/17/24: (premanual) 127 deg flex, 130 deg abd before scaption, 40 deg ER 04/09/24: 130 flex, 135 abd in scaption, T1 ER apley, T10 IR apley PT-OP-L Special Tests Start: 01/21/24 08:11 Freq: Status: Active Protocol: Document 01/21/24 10:30 NM (Rec: 01/21/24 13:02 NM [id number]) Special Tests Cervical Spine Special Tests Traction Test Results - Spurling's Test Test Results - Shoulder Special Tests Empty Can Test Results + Comments ER worse than IR External Rotation Lag Sign Test Results + Drop Arm Rotator Cuff Test Results - Elevation Impingement Test Results + PT-OP-M Strength Start: 01/21/24 08:11 Freq: Status: Active Protocol: Document 04/09/24 08:21 NM (Rec: 04/09/24 09:01 NM [id number]) Shoulder Strength Shoulder Manual Muscle Testing Right Flexion 4 Good Abduction (C5) 4 Good External Rotation 4 Good Internal Rotation 4 Good Comments IE: 3+/5 for all; pain with ER , abd 02/16/24: 4-/5 today 03/17/24: 4-/5 today for IR and ABD (min pain with resistance ), 4/5 for ER and flex 04/09/24: 4/5 without pain PT-OP-Q Treatments Start: 01/21/24 08:11 Freq: Status: Active Protocol: Document 04/28/24 08:57 AB (Rec: 04/28/24 10:33 AB [id number]) Therapeutic Exercises Standing Exercises isometric reactives shoulder flex, ext, abd add Standing Exercise Name bilat for flex ext right UE for abd/add Side bilateral Resistance level one band Reps/Minutes X15 each direction Comments verbal and visual cues shoulder ER Standing Exercise Name isometric reactive Side right Resistance level one band Reps/Minutes X10 Comments verbal cues monitored for clicking IR Side right Equipment Used level one band Reps/Minutes X10 Row Standing Exercise Name 1. low row, 2. mid row 3.high rwo Side bilateral Resistance level 3 band Reps/Minutes 1x15 ea Comments improved form wall posture /c ER Standing Exercise Name wall posture back to wall Reps/Minutes X3 Comments Verbal cues to step away from wall and hold the posture Manual Therapy Treatment Soft Tissue Mobilization right shoulder Body Location rotator cuff, lat, periscapulars, levator scap/UT Mobilization Type Cross-Friction,Rolling, Sustained Pressure Intensity/Depth Moderate Body Position Sidelying Comments Less tenderness of all muscles . Less tightness at LS/UT and rotator cuff but no tenderness , less with soft tissue mobilization Joint Mobilizations scapular Joint right scapula Direction into adduction and depression, rotation Grade III Body Position Sidelying Reps/Duration 1x10 Comments Improved mobility and coordination GH Joint right GH Direction inf and post Grade II Body Position Hooklying Self-Care/Home Management Treatment Education Other Education 111 PT-OP-T Assessment and Plan Start: 01/21/24 08:11 Freq: Status: Active Protocol: Document 04/28/24 08:57 AB (Rec: 04/28/24 10:33 AB [id number]) Physical Therapy Assessment Goals Six Impairment HEP Short Term Goal (STG) Pt will report compliance with HEP at least 2-3x/wk in order to maximize progression with PT 02/16/24: states doing every day STG Duration 6 weeks MET [facility] Goal (LTG) Pt will report compliance with HEP at least 3x/wk in order to transition into maintenance program upon discharge from PT 03/17/24: performing HEP every other day LTG Duration 12 weeks MET Five Impairment strength Impairment R shoulder abduction/ER/ flexion/IR 3+/5 MMT Short Term Goal (STG) Pt will increase R shoulder abduction/flexion/ER/IR strength to at least 4-/5 MMT in order to demonstrate improved shoulder strength during lifting, ADLs 02/16/24: 4-/5 for all, less pain but continues to have pain with abduction 03/17/24: 4/5 for flex and ER, pain free; 4-/5 for IR and abd (min pain with IR) STG Duration 6 weeks MET, PROGRESSING [facility] Goal (LTG) Pt will increase R shoulder abduction/flexion/ER/IR strength to at least 4+/5 MMT in order to demonstrate improved shoulder strength during lifting, ADLs 03/17/24: 4/5 for flex and ER, pain free; 4-/5 for IR and abd (min pain with IR) 04/09/24: 4/5 without pain - GOAL MET, updated 04/09 to 4+/5 LTG Duration 12 weeks MET; goal updated Four Impairment AROM Impairment R shoulder abduction 70 deg, R shoulder flexion 110 deg Short Term Goal (STG) Pt will improve R shoulder abduction AROM to at least 90 deg and R shoulder flexion AROM to at least 120 deg in order to demonstrate increased ability to reach overhead during ADLs/IADLs 02/16/24: 130 deg flexion w/o pain, 140 deg with scaption, 130 deg abduction STG Duration 6 weeks MET [facility] Goal (LTG) Pt will improve R shoulder abduction AROM and R shoulder flexion AROM to at least 135 deg in order to demonstrate increased ability to reach overhead during ADLs/IADLs 02/16/24: 130 deg flexion w/o pain, 140 deg with scaption, 130 deg abduction; demos slight upper trapezius compensation with all 04/09/24: 130 flex, 135 abd in scaption, T1 ER apley, T10 IR apley LTG Duration 12 weeks PARTIALLY MET, PROGRESSING/UPDATED 04/09/24 Three Impairment AROM Impairment R shoulder Apley IR to T12 Short Term Goal (STG) Pt will improve R shoulder Apley IR to at least T10 in order to demonstrate improved R shoulder AROM for dressing 02/16/24: T11, painful 04/09/24 T10, painfree STG Duration 6 weeks NOT MET Medical Dir Goal (LTG) Pt will improve R shoulder Apley IR to at least T8 in order to demonstrate improved R shoulder AROM for dressing 04/09/24: T10 IR apley LTG Duration 12 weeks NOT MET, PROGRESSING Two Impairment AROM Impairment R shoulder Apley ER to occiput Short Term Goal (STG) Pt will improve R shoulder apley ER test to at least T2 without compensation in order to demonstrate improved AROM for grooming and dressing 02/16/24: C7, painful 03/17/24: STG Duration 6 weeks NOT MET [facility] Goal (LTG) Pt will improve R shoulder apley ER test to at least T4 without compensation in order to demonstrate improved AROM for grooming and dressing 04/09/24: T1 ER apley LTG Duration 12 weeks NOT MET, PROGRESSING One Impairment quickdash Impairment score 37, 59% Short Term Goal (STG) Pt will decrease quickdash score by at least 5% in order to demonstrate improvements in R shoulder pain management and QOL STG Duration 6 weeks [facility] Goal (LTG) Pt will decrease quickdash score by at least 11% in order to demonstrate improvements in R shoulder pain management and QOL LTG Duration 12 weeks Assessment Summary Assessment 115 deg AROM right shoulder flexion end of session, reports the shoulder feels good. Focus on strengtheing this session with patient ed to perform scapular, posture, and shoulder ER isomet shoulder IR with band only until next session. Physical Therapy Plan Frequency and Duration Frequency of Treatment 1x/Week Duration of treatment (weeks) 8 Plan of Care Start Date 04/09/24 Plan of Care End Date 06/04/24 Next Visit Focus/Plan Next Note Type Treatment Note Next Visit Plan Focus on periscapular strengthening possibly level 4 band. Retry scaption raises and deltoid strengthening ( isometric reactive for flex/ ext, abd and add to HEP) land mine press, IR towel and eccentric IR, trial scaption Take ROM before/after manual and exercise tx; R IR, serratus roll, resistance with sidelying trio, shoulder taps , NM control with activity. Add wall walks to HEP, banded W, PNF/cheerleader, serratus roll w/ foam roller,dolphin plank, serratus slide Manual: grade II-III mobilizations to R shoulder, AC joint, 1st rib; STM to CS, No grade IV mobilizations
--- NOTE | 2024-05-06 08:17 | PT.OTN ---
Current Diagnoses Other chronic pain (05/06/24) Pain in unspecified shoulder (05/06/24) Physical Therapy Treatment Note PT-OP-A Visit Information Start: 01/21/24 08:11 Freq: Status: Active Protocol: Document 05/06/24 07:29 NM (Rec: 05/06/24 08:17 NM [id number]) Out-Patient Physical Therapy Visit Information Visit Information Visit Type Treatment Note Visit Note KX after 19 visits Visit Start Time 07:32 Visit Stop Time 08:12 Visit Number 22 Evaluation Information Evaluation Date 01/21/24 Precautions Precautions osteopenia, possibly osteoporosis PT-OP-B Current Condition Start: 01/21/24 08:11 Freq: Status: Active Protocol: Document 01/21/24 10:30 NM (Rec: 01/21/24 13:02 NM [id number]) Current Condition History of Current Condition Onset Date 3-4 months worsening Current Complaints pain, mobility History of Current Condition Pt presents with R shoulder pain that has been progressively worsening. 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 She reports that the pain is debilitating. She performs yoga, pilates, weight training, dancing. Pt has pain with arm elevation, dressing, sleeping (usually sleeps on R side, propped on pillow which leads to less pain), eccentric lowering of arm. She reports pain comes and goes. She has been seeing a chiropractor for pain without relief, every couple of weeks. At this time, not planning to have surgery. Denies neck pain, numbness/ tingling. Has crepitus in shoulder; no reports of locking/stuck. No pain at rest PT-OP-C Subjective Start: 01/21/24 08:11 Freq: Status: Active Protocol: Document 05/06/24 07:29 NM (Rec: 05/06/24 08:17 NM [id number]) OP-PT Subjective Patient Comments Patient Comments Pt has seen several surgeons for second opinions. She will see Dr. Hooper and a different MD at . Housework is easier but still problematic and painful. Pt wanting to remain on PT caseload for now until feedback from MDs regarding what is best for her shoulder. PT-OP-E Functional Tests Start: 01/21/24 08:11 Freq: Status: Active Protocol: Document 01/21/24 10:30 NM (Rec: 01/21/24 13:02 NM [id number]) Functional Tests Apley's Scratch Test Action 1- Left post scapular Action 1- Right to AC joint, pain Action 2- Left T4 Action 2- Right to occiput base, T2 with head flexion, pain Action 3- Left T4 Action 3- Right T12, pain PT-OP-F Manual Assessment Start: 01/21/24 08:11 Freq: Status: Active Protocol: Document 01/21/24 10:30 NM (Rec: 01/21/24 13:02 NM [id number]) Manual Assessments Soft Tissue Assessment Soft Tissue Mobility Assessment Atrophy of R paraspinals, upper trapezius compared to LUE. Joint Mobility Assessment Joint Mobility Assessment Decreased passive and active AROM of R shoulder, empty end feel. Anterior humeral position. Worse with abduction , IR, ER. Decreased AC joint space. 1st rib does not appear elevated with CRLF test PT-OP-H Neuro Start: 01/21/24 08:11 Freq: Status: Active Protocol: Document 01/21/24 10:30 NM (Rec: 01/21/24 13:02 NM [id number]) Sensation Evaluation Comments Summary Comments BUE intact to light touch sensation bilaterally PT-OP-J Posture/Palpation/Skin Start: 01/21/24 08:11 Freq: Status: Active Protocol: Document 01/21/24 10:30 NM (Rec: 01/21/24 13:02 NM [id number]) Posture Evaluation Position Standing Head/C-Spine Posture Forward Head T-Spine Posture Rotation Left,Increased Kyphosis Shoulder Posture (L) Rounded,(R) Rounded,(L) Forward,(R) Forward Comments Posture Comments R shoulder slightly elevated, possible R thoracic curve, protraction Palpation Assessment Location R shoulder Palpation Findings Soft Tissue Tightness, Tenderness Palpation Details tenderness at posterior cuff origin and insertion. Tightness at R lat No tenderness at LH biceps PT-OP-K Range of Motion Start: 01/21/24 08:11 Freq: Status: Active Protocol: Document 04/09/24 08:21 NM (Rec: 04/09/24 09:01 NM [id number]) Shoulder Goniometric Range of Motion Shoulder Right AROM Flexion 130 Abduction 135 External Rotation at 0 degrees Abduction 45 Internal Rotation Behind Back (text) T10 Comments IE: 110 deg flex, 70 deg abd, 35 deg ER at 0 deg, 65 deg IR; All motions painful 02/16/24: 130 flex and abduction, min pain with abduction 03/17/24: (premanual) 127 deg flex, 130 deg abd before scaption, 40 deg ER 04/09/24: 130 flex, 135 abd in scaption, T1 ER apley, T10 IR apley PT-OP-L Special Tests Start: 01/21/24 08:11 Freq: Status: Active Protocol: Document 01/21/24 10:30 NM (Rec: 01/21/24 13:02 NM [id number]) Special Tests Cervical Spine Special Tests Traction Test Results - Spurling's Test Test Results - Shoulder Special Tests Empty Can Test Results + Comments ER worse than IR External Rotation Lag Sign Test Results + Drop Arm Rotator Cuff Test Results - Elevation Impingement Test Results + PT-OP-M Strength Start: 01/21/24 08:11 Freq: Status: Active Protocol: Document 04/09/24 08:21 NM (Rec: 04/09/24 09:01 NM [id number]) Shoulder Strength Shoulder Manual Muscle Testing Right Flexion 4 Good Abduction (C5) 4 Good External Rotation 4 Good Internal Rotation 4 Good Comments IE: 3+/5 for all; pain with ER , abd 02/16/24: 4-/5 today 03/17/24: 4-/5 today for IR and ABD (min pain with resistance ), 4/5 for ER and flex 04/09/24: 4/5 without pain PT-OP-Q Treatments Start: 01/21/24 08:11 Freq: Status: Active Protocol: Document 05/06/24 07:29 NM (Rec: 05/06/24 08:17 NM [id number]) Therapeutic Exercises Sidelying Exercises protraction/retraction Side right Equipment Used holding ball Reps/Minutes 10 ea external rotation Side right Resistance AROM Equipment Used towel roll Reps/Minutes 2x10 Comments cued to limit range just under clunk Standing Exercises eccentric flex/abd Side right Resistance level 1 band Reps/Minutes 10 ea Comments abd more challenging thoracic mobility Standing Exercise Name 1. standing open book @ wall, 2. thoracic ext Side bilateral Reps/Minutes 10 ea RTC TB Standing Exercise Name reactive isometrics ER/IR Side bilateral Resistance level 1 Reps/Minutes 8 ea direction Manual Therapy Treatment Consent Patient gave verbal consent for manual Yes treatment Soft Tissue Mobilization right shoulder Body Location rotator cuff, lat, periscapulars, levator scap/UT Mobilization Type Cross-Friction,Rolling, Sustained Pressure Intensity/Depth Moderate Body Position Sidelying Comments Less tenderness of all muscles . Trigger points at LS/UT and rotator cuff but no tenderness , less with soft tissue mobilization Joint Mobilizations scapular Joint right scapula Direction into adduction and depression, rotation Grade III Body Position Sidelying Reps/Duration 1x10 Comments Improved mobility and coordination GH Joint right GH Direction inf and post Grade II Body Position Hooklying Reps/Duration 4x30 ea Comments Continues to have crepitus with abduction during inferior glide, monitored for pain PT-OP-T Assessment and Plan Start: 01/21/24 08:11 Freq: Status: Active Protocol: Document 05/06/24 07:29 NM (Rec: 05/06/24 08:17 NM [id number]) Physical Therapy Assessment Goals Six Impairment HEP Short Term Goal (STG) Pt will report compliance with HEP at least 2-3x/wk in order to maximize progression with PT 02/16/24: states doing every day STG Duration 6 weeks [facility] Goal (LTG) Pt will report compliance with HEP at least 3x/wk in order to transition into maintenance program upon discharge from PT 03/17/24: performing HEP every other day LTG Duration 12 weeks MET Five Impairment strength Impairment R shoulder abduction/ER/ flexion/IR 3+/5 MMT Short Term Goal (STG) Pt will increase R shoulder abduction/flexion/ER/IR strength to at least 4-/5 MMT in order to demonstrate improved shoulder strength during lifting, ADLs 02/16/24: 4-/5 for all, less pain but continues to have pain with abduction 03/17/24: 4/5 for flex and ER, pain free; 4-/5 for IR and abd (min pain with IR) STG Duration 6 weeks MET, PROGRESSING [facility] Goal (LTG) Pt will increase R shoulder abduction/flexion/ER/IR strength to at least 4+/5 MMT in order to demonstrate improved shoulder strength during lifting, ADLs 03/17/24: 4/5 for flex and ER, pain free; 4-/5 for IR and abd (min pain with IR) 04/09/24: 4/5 without pain - GOAL MET, updated 04/09 to 4+/5 LTG Duration 12 weeks MET; goal updated Four Impairment AROM Impairment R shoulder abduction 70 deg, R shoulder flexion 110 deg Short Term Goal (STG) Pt will improve R shoulder abduction AROM to at least 90 deg and R shoulder flexion AROM to at least 120 deg in order to demonstrate increased ability to reach overhead during ADLs/IADLs 02/16/24: 130 deg flexion w/o pain, 140 deg with scaption, 130 deg abduction STG Duration 6 weeks MET [employer] Goal (LTG) Pt will improve R shoulder abduction AROM and R shoulder flexion AROM to at least 135 deg in order to demonstrate increased ability to reach overhead during ADLs/IADLs 02/16/24: 130 deg flexion w/o pain, 140 deg with scaption, 130 deg abduction; demos slight upper trapezius compensation with all 04/09/24: 130 flex, 135 abd in scaption, T1 ER apley, T10 IR apley LTG Duration 12 weeks PARTIALLY MET, PROGRESSING/UPDATED 04/09/24 Three Impairment AROM Impairment R shoulder Apley IR to T12 Short Term Goal (STG) Pt will improve R shoulder Apley IR to at least T10 in order to demonstrate improved R shoulder AROM for dressing 02/16/24: T11, painful 04/09/24 T10, painfree STG Duration 6 weeks NOT MET [facility] Goal (LTG) Pt will improve R shoulder Apley IR to at least T8 in order to demonstrate improved R shoulder AROM for dressing 04/09/24: T10 IR apley LTG Duration 12 weeks NOT MET, PROGRESSING Two Impairment AROM Impairment R shoulder Apley ER to occiput Short Term Goal (STG) Pt will improve R shoulder apley ER test to at least T2 without compensation in order to demonstrate improved AROM for grooming and dressing 02/16/24: C7, painful 03/17/24: STG Duration 6 weeks NOT MET [employer] Goal (LTG) Pt will improve R shoulder apley ER test to at least T4 without compensation in order to demonstrate improved AROM for grooming and dressing 04/09/24: T1 ER apley LTG Duration 12 weeks NOT MET, PROGRESSING One Impairment quickdash Impairment score 37, 59% Short Term Goal (STG) Pt will decrease quickdash score by at least 5% in order to demonstrate improvements in R shoulder pain management and QOL STG Duration 6 weeks [facility] Goal (LTG) Pt will decrease quickdash score by at least 11% in order to demonstrate improvements in R shoulder pain management and QOL LTG Duration 12 weeks Assessment Summary Assessment Pt tolerated session well but continues to exhibit increased joint crepitus and clicking . Pt demonstrates 120 deg R shoulder flexion, 130 deg abduction ROM. Continued with periscapular strengthening with emphasis on correct scapulohumeral rhythm and positioning prior to reaching. Pt continues to have good tolerance for reactive isometrics into ER/IR; trialed eccentric flex/abd. Pt is most challenged with abduction ROM and strength, compensating with scaption and trunk rotation. Educated to do only banded exercises (rows , reactive isometrics, etc) with limited reps for joint protection. Pt would benefit from skilled PT for R shoulder joint protection and strengthening within available ROM. Physical Therapy Plan Frequency and Duration Frequency of Treatment 1x/Week Duration of treatment (weeks) 8 Plan of Care Start Date 04/09/24 Plan of Care End Date 06/04/24 Therapeutic Interventions Therapeutic Interventions Aquatic Therapy,Coordination Training,Gait Training,Home Exercise Program,Joint Mobilizations,Manual Therapy, Neuromuscular Re-education, Orthotic/Prosthetic Management ,Patient/Caregiver Education, Self-Care/Home Management, Sensory Integration,Soft Tissue Mobilization,Taping, Therapeutic Activities, Therapeutic Exercises Modalities Cold Pack/Ice Massage,Electric Stimulation,Hot Packs, Ultrasound,Vasopneumatic Devices Next Visit Focus/Plan Next Note Type Progress Note Next Visit Plan Retry eccentrics Focus on periscapular strengthening possibly level 4 band. Retry scaption raises and deltoid strengthening ( isometric reactive for flex/ ext, abd and add to HEP) land mine press, IR towel and eccentric IR, trial scaption Take ROM before/after manual and exercise tx; R IR, serratus roll, resistance with sidelying trio, shoulder taps , NM control with activity. Add wall walks to HEP, banded W, PNF/cheerleader, serratus roll w/ foam roller,dolphin plank, serratus slide Manual: grade II-III mobilizations to R shoulder, AC joint, 1st rib; STM to CS, No grade IV mobilizations
--- NOTE | 2024-05-11 09:42 | PT.OTN ---
Current Diagnoses Other chronic pain (05/11/24) Pain in unspecified shoulder (05/11/24) Physical Therapy Treatment Note PT-OP-A Visit Information Start: 01/21/24 08:11 Freq: Status: Active Protocol: Document 05/11/24 07:32 NM (Rec: 05/11/24 08:17 NM [id number]) Out-Patient Physical Therapy Visit Information Visit Information Visit Type Progress Note Visit Note KX after 19 visits Visit Start Time 07:33 Visit Stop Time 08:13 Visit Number 23 Evaluation Information Evaluation Date 01/21/24 Precautions Precautions osteopenia, possibly osteoporosis PT-OP-B Current Condition Start: 01/21/24 08:11 Freq: Status: Active Protocol: Document 01/21/24 10:30 NM (Rec: 01/21/24 13:02 NM [id number]) Current Condition History of Current Condition Onset Date 3-4 months worsening Current Complaints pain, mobility History of Current Condition Pt presents with R shoulder pain that has been progressively worsening. 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 She reports that the pain is debilitating. She performs yoga, pilates, weight training, dancing. Pt has pain with arm elevation, dressing, sleeping (usually sleeps on R side, propped on pillow which leads to less pain), eccentric lowering of arm. She reports pain comes and goes. She has been seeing a chiropractor for pain without relief, every couple of weeks. At this time, not planning to have surgery. Denies neck pain, numbness/ tingling. Has crepitus in shoulder; no reports of locking/stuck. No pain at rest PT-OP-C Subjective Start: 01/21/24 08:11 Freq: Status: Active Protocol: Document 05/11/24 07:32 NM (Rec: 05/11/24 08:17 NM [id number]) OP-PT Subjective Patient Comments Patient Comments Pt has follow up with surgeons next week (2). She reports taking things into her own hands and started going to exercise class. There is stuff I can't do and I've been downgraded to functional fitness with the old people. She is not giving up yoga. Reports sore on both arms today, took arnica last night. PT-OP-E Functional Tests Start: 01/21/24 08:11 Freq: Status: Active Protocol: Document 01/21/24 10:30 NM (Rec: 01/21/24 13:02 NM [id number]) Functional Tests Apley's Scratch Test Action 1- Left post scapular Action 1- Right to AC joint, pain Action 2- Left T4 Action 2- Right to occiput base, T2 with head flexion, pain Action 3- Left T4 Action 3- Right T12, pain PT-OP-F Manual Assessment Start: 01/21/24 08:11 Freq: Status: Active Protocol: Document 01/21/24 10:30 NM (Rec: 01/21/24 13:02 NM [id number]) Manual Assessments Soft Tissue Assessment Soft Tissue Mobility Assessment Atrophy of R paraspinals, upper trapezius compared to LUE. Joint Mobility Assessment Joint Mobility Assessment Decreased passive and active AROM of R shoulder, empty end feel. Anterior humeral position. Worse with abduction , IR, ER. Decreased AC joint space. 1st rib does not appear elevated with CRLF test PT-OP-H Neuro Start: 01/21/24 08:11 Freq: Status: Active Protocol: Document 01/21/24 10:30 NM (Rec: 01/21/24 13:02 NM [id number]) Sensation Evaluation Comments Summary Comments BUE intact to light touch sensation bilaterally PT-OP-J Posture/Palpation/Skin Start: 01/21/24 08:11 Freq: Status: Active Protocol: Document 01/21/24 10:30 NM (Rec: 01/21/24 13:02 NM [id number]) Posture Evaluation Position Standing Head/C-Spine Posture Forward Head T-Spine Posture Rotation Left,Increased Kyphosis Shoulder Posture (L) Rounded,(R) Rounded,(L) Forward,(R) Forward Comments Posture Comments R shoulder slightly elevated, possible R thoracic curve, protraction Palpation Assessment Location R shoulder Palpation Findings Soft Tissue Tightness, Tenderness Palpation Details tenderness at posterior cuff origin and insertion. Tightness at R lat No tenderness at LH biceps PT-OP-K Range of Motion Start: 01/21/24 08:11 Freq: Status: Active Protocol: Document 05/11/24 07:32 NM (Rec: 05/11/24 08:17 NM [id number]) Shoulder Goniometric Range of Motion Shoulder Right AROM Flexion 130 Abduction 135 External Rotation at 0 degrees Abduction 45 Internal Rotation Behind Back (text) T10 Comments IE: 110 deg flex, 70 deg abd, 35 deg ER at 0 deg, 65 deg IR; All motions painful 02/16/24: 130 flex and abduction, min pain with abduction 03/17/24: (premanual) 127 deg flex, 130 deg abd before scaption, 40 deg ER 04/09/24: 130 flex, 135 abd in scaption, T1 ER apley, T10 IR apley 05/11/24: 130 deg flex, 140 deg scaption, T3 ER apley, T9 IR apley PT-OP-L Special Tests Start: 01/21/24 08:11 Freq: Status: Active Protocol: Document 01/21/24 10:30 NM (Rec: 01/21/24 13:02 NM [id number]) Special Tests Cervical Spine Special Tests Traction Test Results - Spurling's Test Test Results - Shoulder Special Tests Empty Can Test Results + Comments ER worse than IR External Rotation Lag Sign Test Results + Drop Arm Rotator Cuff Test Results - Elevation Impingement Test Results + PT-OP-M Strength Start: 01/21/24 08:11 Freq: Status: Active Protocol: Document 05/11/24 07:32 NM (Rec: 05/11/24 08:17 NM [id number]) Shoulder Strength Shoulder Manual Muscle Testing Right Flexion 4 Good Abduction (C5) 4 Good External Rotation 4 Good Internal Rotation 4 Good Comments IE: 3+/5 for all; pain with ER , abd 02/16/24: 4-/5 today 03/17/24: 4-/5 today for IR and ABD (min pain with resistance ), 4/5 for ER and flex 04/09/24: 4/5 05/11/24: 4/5 ER, 4+/5 flex,abd , IR without pain PT-OP-Q Treatments Start: 01/21/24 08:11 Freq: Status: Active Protocol: Document 05/11/24 07:32 NM (Rec: 05/11/24 08:17 NM [id number]) Therapeutic Exercises Sidelying Exercises external rotation Side right Resistance 1x# Equipment Used towel roll Reps/Minutes 2x5 Comments cued to limit range just under clunk, less w/ resistance abduction Sidelying Exercise Name HABD Side right Resistance 1# db Reps/Minutes 2x5 Comments cued scap retraction/setting prior, less crepitus w/ resistance flexion Sidelying Exercise Name scaption Side right Resistance 1# db Reps/Minutes 2x5 Comments cued scap retraction/setting prior, less crepitus w/ resistance Standing Exercises serratus activation Standing Exercise Name 1. serratus punch, 2. ball stabilization Side bilateral Resistance level 1 band Equipment Used performed individual sides, mirror for visual feedback Reps/Minutes 1. 2x5, 2. 2x10 CW/CCW Comments R more challenging, improved form w/ mirror pectoral stretch Standing Exercise Name pectoralis mobilization: 45 deg to 90 deg abd Side bilateral Reps/Minutes 60 ea Comments Feels nice Other Exercises plank Other Exercise Name on plinth- added shoulder taps Side bilateral Reps/Minutes 2x5 ea side Comments good core activation Manual Therapy Treatment Consent Patient gave verbal consent for manual Yes treatment Soft Tissue Mobilization right shoulder Body Location rotator cuff, lat, periscapulars, levator scap/UT , pec Mobilization Type Cross-Friction,Rolling, Sustained Pressure Intensity/Depth Moderate Body Position Sidelying Comments Less tenderness of all muscles . Trigger points at LS/UT and rotator cuff but no tenderness , less with soft tissue mobilization. Pec and lat tightness today Joint Mobilizations scapular Joint right scapula Direction into adduction and depression, rotation Grade III Body Position Sidelying Reps/Duration 15 ea direction Comments Improved mobility and coordination GH Joint right GH Direction inf and post Grade II Body Position Hooklying Reps/Duration 5x30 ea Comments Continues to have crepitus with abduction during inferior glide, monitored for pain PT-OP-T Assessment and Plan Start: 01/21/24 08:11 Freq: Status: Active Protocol: Document 05/11/24 07:32 NM (Rec: 05/11/24 08:17 NM [id number]) Physical Therapy Assessment Goals Six Impairment HEP Short Term Goal (STG) Pt will report compliance with HEP at least 2-3x/wk in order to maximize progression with PT 02/16/24: states doing every day STG Duration 6 weeks MET Fpc Goal (LTG) Pt will report compliance with HEP at least 3x/wk in order to transition into maintenance program upon discharge from PT 03/17/24: performing HEP every other day LTG Duration 12 weeks MET Five Impairment strength Impairment R shoulder abduction/ER/ flexion/IR 3+/5 MMT Short Term Goal (STG) Pt will increase R shoulder abduction/flexion/ER/IR strength to at least 4-/5 MMT in order to demonstrate improved shoulder strength during lifting, ADLs 02/16/24: 4-/5 for all, less pain but continues to have pain with abduction 03/17/24: 4/5 for flex and ER, pain free; 4-/5 for IR and abd (min pain with IR) STG Duration 6 weeks MET, PROGRESSING Fpc Goal (LTG) Pt will increase R shoulder abduction/flexion/ER/IR strength to at least 4+/5 MMT in order to demonstrate improved shoulder strength during lifting, ADLs 03/17/24: 4/5 for flex and ER, pain free; 4-/5 for IR and abd (min pain with IR) 04/09/24: 4/5 without pain - GOAL MET, updated 04/09 to 4+/5 LTG Duration 12 weeks MET; goal updated - PROGRESSING Four Impairment AROM Impairment R shoulder abduction 70 deg, R shoulder flexion 110 deg Short Term Goal (STG) Pt will improve R shoulder abduction AROM to at least 90 deg and R shoulder flexion AROM to at least 120 deg in order to demonstrate increased ability to reach overhead during ADLs/IADLs 02/16/24: 130 deg flexion w/o pain, 140 deg with scaption, 130 deg abduction STG Duration 6 weeks MET Cutting Machine Tender Goal (LTG) Pt will improve R shoulder abduction AROM and R shoulder flexion AROM to at least 135 deg in order to demonstrate increased ability to reach overhead during ADLs/IADLs 02/16/24: 130 deg flexion w/o pain, 140 deg with scaption, 130 deg abduction; demos slight upper trapezius compensation with all 04/09/24: 130 flex, 135 abd in scaption, T1 ER apley, T10 IR apley 05/11/24: 140 deg scaption, 130 deg flexion LTG Duration 12 weeks PARTIALLY MET, PROGRESSING/UPDATED 04/09/24 Three Impairment AROM Impairment R shoulder Apley IR to T12 Short Term Goal (STG) Pt will improve R shoulder Apley IR to at least T10 in order to demonstrate improved R shoulder AROM for dressing 02/16/24: T11, painful 04/09/24 T10, painfree STG Duration 6 weeks NOT MET Cutting Machine Tender Goal (LTG) Pt will improve R shoulder Apley IR to at least T8 in order to demonstrate improved R shoulder AROM for dressing 04/09/24: T10 IR apley 05/11/24: T9 LTG Duration 12 weeks NOT MET, PROGRESSING Two Impairment AROM Impairment R shoulder Apley ER to occiput Short Term Goal (STG) Pt will improve R shoulder apley ER test to at least T2 without compensation in order to demonstrate improved AROM for grooming and dressing 02/16/24: C7, painful 03/17/24: STG Duration 6 weeks NOT MET Cutting Machine Tender Goal (LTG) Pt will improve R shoulder apley ER test to at least T4 without compensation in order to demonstrate improved AROM for grooming and dressing 04/09/24: T1 ER apley 05/11/24: T3 LTG Duration 12 weeks NOT MET, PROGRESSING One Impairment quickdash Impairment score 37, 59% Short Term Goal (STG) Pt will decrease quickdash score by at least 5% in order to demonstrate improvements in R shoulder pain management and QOL STG Duration 6 weeks Cutting Machine Tender Goal (LTG) Pt will decrease quickdash score by at least 11% in order to demonstrate improvements in R shoulder pain management and QOL 05/11/24: 34% LTG Duration 12 weeks MET Progress Towards Goals Progress Towards Goals Progressing Toward Goals,Goals Met Assessment Summary Assessment Pt tolerated session well. She has 130 deg R shoulder flexion, 140 deg scaption. Pt continues to have joint crepitus but significantly less with low level resistance in limited ROM. PT educated pt on not overworking muscles during exercise classes and on performing HEP/exercise classes within available ROM only. Pt responded well to progressions with serratus strengthening, but requires visual cues for correct execution to prevent trunk compensations. She continues to progress slowly toward goals. Physical Therapy Plan Frequency and Duration Frequency of Treatment 1x/Week Duration of treatment (weeks) 8 Plan of Care Start Date 04/09/24 Plan of Care End Date 06/04/24 Therapeutic Interventions Therapeutic Interventions Aquatic Therapy,Coordination Training,Gait Training,Home Exercise Program,Joint Mobilizations,Manual Therapy, Neuromuscular Re-education, Orthotic/Prosthetic Management ,Patient/Caregiver Education, Self-Care/Home Management, Sensory Integration,Soft Tissue Mobilization,Taping, Therapeutic Activities, Therapeutic Exercises Modalities Cold Pack/Ice Massage,Electric Stimulation,Hot Packs, Ultrasound,Vasopneumatic Devices Next Visit Focus/Plan Next Note Type Discharge Summary Next Visit Plan HEP review and condense Focus on periscapular strengthening possibly level 4 band. Retry scaption raises and deltoid strengthening ( isometric reactive for flex/ ext, abd and add to HEP) land mine press, IR towel and eccentric IR, trial scaption Take ROM before/after manual and exercise tx; R IR, serratus roll, resistance with sidelying trio, shoulder taps , NM control with activity. Add wall walks to HEP, banded W, PNF/cheerleader, serratus roll w/ foam roller,dolphin plank, serratus slide Manual: grade II-III mobilizations to R shoulder, AC joint, 1st rib; STM to CS, No grade IV mobilizations
--- NOTE | 2024-05-20 12:52 | PT.OTN ---
Current Diagnoses Other chronic pain (05/20/24) Pain in unspecified shoulder (05/20/24) Physical Therapy Treatment Note PT-OP-A Visit Information Start: 01/21/24 08:11 Freq: Status: Active Protocol: Document 05/20/24 09:02 NM (Rec: 05/20/24 09:46 NM [id number]) Out-Patient Physical Therapy Visit Information Visit Information Visit Type Treatment Note Visit Note KX after 19 visits Visit Start Time 09:02 Visit Stop Time 09:42 Visit Number 24 Evaluation Information Evaluation Date 01/21/24 Precautions Precautions osteopenia, possibly osteoporosis PT-OP-B Current Condition Start: 01/21/24 08:11 Freq: Status: Active Protocol: Document 01/21/24 10:30 NM (Rec: 01/21/24 13:02 NM [id number]) Current Condition History of Current Condition Onset Date 3-4 months worsening Current Complaints pain, mobility History of Current Condition Pt presents with R shoulder pain that has been progressively worsening. 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 She reports that the pain is debilitating. She performs yoga, pilates, weight training, dancing. Pt has pain with arm elevation, dressing, sleeping (usually sleeps on R side, propped on pillow which leads to less pain), eccentric lowering of arm. She reports pain comes and goes. She has been seeing a chiropractor for pain without relief, every couple of weeks. At this time, not planning to have surgery. Denies neck pain, numbness/ tingling. Has crepitus in shoulder; no reports of locking/stuck. No pain at rest PT-OP-C Subjective Start: 01/21/24 08:11 Freq: Status: Active Protocol: Document 05/20/24 09:02 NM (Rec: 05/20/24 09:46 NM [id number]) OP-PT Subjective Patient Comments Patient Comments Pt has had several appts with surgeons to determine plan of care. [facility] is considered full TSA vs other options. Dr. Hooper is wanting 8 more weeks of PT from Friday, very conservative with approach before considering further approach; will be ordering MRI for rotator cuff. PT-OP-E Functional Tests Start: 01/21/24 08:11 Freq: Status: Active Protocol: Document 01/21/24 10:30 NM (Rec: 01/21/24 13:02 NM [id number]) Functional Tests Apley's Scratch Test Action 1- Left post scapular Action 1- Right to AC joint, pain Action 2- Left T4 Action 2- Right to occiput base, T2 with head flexion, pain Action 3- Left T4 Action 3- Right T12, pain PT-OP-F Manual Assessment Start: 01/21/24 08:11 Freq: Status: Active Protocol: Document 01/21/24 10:30 NM (Rec: 01/21/24 13:02 NM [id number]) Manual Assessments Soft Tissue Assessment Soft Tissue Mobility Assessment Atrophy of R paraspinals, upper trapezius compared to LUE. Joint Mobility Assessment Joint Mobility Assessment Decreased passive and active AROM of R shoulder, empty end feel. Anterior humeral position. Worse with abduction , IR, ER. Decreased AC joint space. 1st rib does not appear elevated with CRLF test PT-OP-H Neuro Start: 01/21/24 08:11 Freq: Status: Active Protocol: Document 01/21/24 10:30 NM (Rec: 01/21/24 13:02 NM [id number]) Sensation Evaluation Comments Summary Comments BUE intact to light touch sensation bilaterally PT-OP-J Posture/Palpation/Skin Start: 01/21/24 08:11 Freq: Status: Active Protocol: Document 01/21/24 10:30 NM (Rec: 01/21/24 13:02 NM [id number]) Posture Evaluation Position Standing Head/C-Spine Posture Forward Head T-Spine Posture Rotation Left,Increased Kyphosis Shoulder Posture (L) Rounded,(R) Rounded,(L) Forward,(R) Forward Comments Posture Comments R shoulder slightly elevated, possible R thoracic curve, protraction Palpation Assessment Location R shoulder Palpation Findings Soft Tissue Tightness, Tenderness Palpation Details tenderness at posterior cuff origin and insertion. Tightness at R lat No tenderness at LH biceps PT-OP-K Range of Motion Start: 01/21/24 08:11 Freq: Status: Active Protocol: Document 05/11/24 07:32 NM (Rec: 05/11/24 08:17 NM [id number]) Shoulder Goniometric Range of Motion Shoulder Right AROM Flexion 130 Abduction 135 External Rotation at 0 degrees Abduction 45 Internal Rotation Behind Back (text) T10 Comments IE: 110 deg flex, 70 deg abd, 35 deg ER at 0 deg, 65 deg IR; All motions painful 02/16/24: 130 flex and abduction, min pain with abduction 03/17/24: (premanual) 127 deg flex, 130 deg abd before scaption, 40 deg ER 04/09/24: 130 flex, 135 abd in scaption, T1 ER apley, T10 IR apley 05/11/24: 130 deg flex, 140 deg scaption, T3 ER apley, T9 IR apley PT-OP-L Special Tests Start: 01/21/24 08:11 Freq: Status: Active Protocol: Document 01/21/24 10:30 NM (Rec: 01/21/24 13:02 NM [id number]) Special Tests Cervical Spine Special Tests Traction Test Results - Spurling's Test Test Results - Shoulder Special Tests Empty Can Test Results + Comments ER worse than IR External Rotation Lag Sign Test Results + Drop Arm Rotator Cuff Test Results - Elevation Impingement Test Results + PT-OP-M Strength Start: 01/21/24 08:11 Freq: Status: Active Protocol: Document 05/11/24 07:32 NM (Rec: 05/11/24 08:17 NM [id number]) Shoulder Strength Shoulder Manual Muscle Testing Right Flexion 4 Good Abduction (C5) 4 Good External Rotation 4 Good Internal Rotation 4 Good Comments IE: 3+/5 for all; pain with ER , abd 02/16/24: 4-/5 today 03/17/24: 4-/5 today for IR and ABD (min pain with resistance ), 4/5 for ER and flex 04/09/24: 4/5 05/11/24: 4/5 ER, 4+/5 flex,abd , IR without pain PT-OP-Q Treatments Start: 01/21/24 08:11 Freq: Status: Active Protocol: Document 05/20/24 09:02 NM (Rec: 05/20/24 09:46 NM [id number]) Therapeutic Exercises Supine Exercises mini band Supine Exercise Name shoulder ER with band with flexion: supine and standing Side bilateral Resistance lvl 1 tb Reps/Minutes 10 ea position Comments requires increased time for form; pain free Sidelying Exercises scapular clock Sidelying Exercise Name 12, 3, 6, 9 Side right Reps/Minutes 5 sets Comments pain free but demos prn clicking with 9 o'clock open book Side bilateral Resistance AROM Reps/Minutes 10 Comments following spinal mobility; min clicking in cervical spine Standing Exercises pendulum Standing Exercise Name CCW and CW Side right Reps/Minutes 30 ea direction Comments PROM; edu for post op in future Other Exercises plank Other Exercise Name on plinth- added shoulder taps Side bilateral Reps/Minutes 60 plank, 10 tap ea alternating Comments good core activation; improved form and less time required Manual Therapy Treatment Consent Patient gave verbal consent for manual Yes treatment Soft Tissue Mobilization right shoulder Body Location rotator cuff, lat, periscapulars, levator scap/UT , pec Mobilization Type Cross-Friction,Rolling, Sustained Pressure Intensity/Depth Moderate Body Position Sidelying Comments Less tenderness of all muscles . Tightness and trigger points at LS/UT and rotator cuff, less with soft tissue mobilization. Pec and lat tightness today, reduced with mobilization Joint Mobilizations scapular Joint right scapula Direction into adduction and depression, rotation Grade III Body Position Sidelying Reps/Duration 10 ea direction Comments Improved mobility and coordination; performed before scapular clocks Manual Techniques PNF Type rhythmic stabilization Body Location hooklying Reps/Duration 2x60 Comments pain free PT-OP-T Assessment and Plan Start: 01/21/24 08:11 Freq: Status: Active Protocol: Document 05/20/24 09:02 NM (Rec: 05/20/24 09:46 NM [id number]) Physical Therapy Assessment Goals Six Impairment HEP Short Term Goal (STG) Pt will report compliance with HEP at least 2-3x/wk in order to maximize progression with PT 02/16/24: states doing every day STG Duration 6 weeks MET Career Placement Specialist Goal (LTG) Pt will report compliance with HEP at least 3x/wk in order to transition into maintenance program upon discharge from PT 03/17/24: performing HEP every other day LTG Duration 12 weeks MET Five Impairment strength Impairment R shoulder abduction/ER/ flexion/IR 3+/5 MMT Short Term Goal (STG) Pt will increase R shoulder abduction/flexion/ER/IR strength to at least 4-/5 MMT in order to demonstrate improved shoulder strength during lifting, ADLs 02/16/24: 4-/5 for all, less pain but continues to have pain with abduction 03/17/24: 4/5 for flex and ER, pain free; 4-/5 for IR and abd (min pain with IR) STG Duration 6 weeks MET, PROGRESSING Custodial Goal (LTG) Pt will increase R shoulder abduction/flexion/ER/IR strength to at least 4+/5 MMT in order to demonstrate improved shoulder strength during lifting, ADLs 03/17/24: 4/5 for flex and ER, pain free; 4-/5 for IR and abd (min pain with IR) 04/09/24: 4/5 without pain - GOAL MET, updated 04/09 to 4+/5 LTG Duration 12 weeks MET; goal updated - PROGRESSING Four Impairment AROM Impairment R shoulder abduction 70 deg, R shoulder flexion 110 deg Short Term Goal (STG) Pt will improve R shoulder abduction AROM to at least 90 deg and R shoulder flexion AROM to at least 120 deg in order to demonstrate increased ability to reach overhead during ADLs/IADLs 02/16/24: 130 deg flexion w/o pain, 140 deg with scaption, 130 deg abduction STG Duration 6 weeks MET Career Placement Specialist Goal (LTG) Pt will improve R shoulder abduction AROM and R shoulder flexion AROM to at least 135 deg in order to demonstrate increased ability to reach overhead during ADLs/IADLs 02/16/24: 130 deg flexion w/o pain, 140 deg with scaption, 130 deg abduction; demos slight upper trapezius compensation with all 04/09/24: 130 flex, 135 abd in scaption, T1 ER apley, T10 IR apley 05/11/24: 140 deg scaption, 130 deg flexion LTG Duration 12 weeks PARTIALLY MET, PROGRESSING/UPDATED 04/09/24 Three Impairment AROM Impairment R shoulder Apley IR to T12 Short Term Goal (STG) Pt will improve R shoulder Apley IR to at least T10 in order to demonstrate improved R shoulder AROM for dressing 02/16/24: T11, painful 04/09/24 T10, painfree STG Duration 6 weeks NOT MET Custodial Goal (LTG) Pt will improve R shoulder Apley IR to at least T8 in order to demonstrate improved R shoulder AROM for dressing 04/09/24: T10 IR apley 05/11/24: T9 LTG Duration 12 weeks NOT MET, PROGRESSING Two Impairment AROM Impairment R shoulder Apley ER to occiput Short Term Goal (STG) Pt will improve R shoulder apley ER test to at least T2 without compensation in order to demonstrate improved AROM for grooming and dressing 02/16/24: C7, painful 03/17/24: STG Duration 6 weeks NOT MET Custodial Goal (LTG) Pt will improve R shoulder apley ER test to at least T4 without compensation in order to demonstrate improved AROM for grooming and dressing 04/09/24: T1 ER apley 05/11/24: T3 LTG Duration 12 weeks NOT MET, PROGRESSING One Impairment quickdash Impairment score 37, 59% Short Term Goal (STG) Pt will decrease quickdash score by at least 5% in order to demonstrate improvements in R shoulder pain management and QOL STG Duration 6 weeks Custodial Goal (LTG) Pt will decrease quickdash score by at least 11% in order to demonstrate improvements in R shoulder pain management and QOL 05/11/24: 34% LTG Duration 12 weeks MET Assessment Summary Assessment Pt tolerated session well. Emphasis on scapular mobility and spinal mobility to address mobility along kinetic chain. Followed by R shoulder stabilization in supine and plank on plinth. Trialed rhythmic stabilization, which was challenging for pt but improved with reps. Continued with rotator cuff strengthening to improve ability to reach overhead. Extensive manual treatment today due to increased soft tissue restrictions of periscapulars/chest muscles and cervical paraspinals, limiting R shoulder mobility. PT and pt discussed discharge at next session as pt has met most PT goals and has met max PT potential at this time. PT and pt in agreement. Physical Therapy Plan Frequency and Duration Frequency of Treatment 1x/Week Duration of treatment (weeks) 8 Plan of Care Start Date 04/09/24 Plan of Care End Date 06/04/24 Therapeutic Interventions Therapeutic Interventions Aquatic Therapy,Coordination Training,Gait Training,Home Exercise Program,Joint Mobilizations,Manual Therapy, Neuromuscular Re-education, Orthotic/Prosthetic Management ,Patient/Caregiver Education, Self-Care/Home Management, Sensory Integration,Soft Tissue Mobilization,Taping, Therapeutic Activities, Therapeutic Exercises Modalities Cold Pack/Ice Massage,Electric Stimulation,Hot Packs, Ultrasound,Vasopneumatic Devices Next Visit Focus/Plan Next Note Type Discharge Summary Next Visit Plan HEP review and condense Focus on periscapular strengthening possibly level 4 band. Retry scaption raises and deltoid strengthening ( isometric reactive for flex/ ext, abd and add to HEP) land mine press, IR towel and eccentric IR, trial scaption Take ROM before/after manual and exercise tx; R IR, serratus roll, resistance with sidelying trio, shoulder taps , NM control with activity. Add wall walks to HEP, banded W, PNF/cheerleader, serratus roll w/ foam roller,dolphin plank, serratus slide Manual: grade II-III mobilizations to R shoulder, AC joint, 1st rib; STM to CS, No grade IV mobilizations
--- NOTE | 2024-05-25 12:52 | PT.OTN ---
Current Diagnoses Other chronic pain (05/25/24) Pain in unspecified shoulder (05/25/24) Physical Therapy Treatment Note PT-OP-A Visit Information Start: 01/21/24 08:11 Freq: Status: Active Protocol: Document 05/25/24 07:26 NM (Rec: 05/25/24 08:20 NM [id number]) Out-Patient Physical Therapy Visit Information Visit Information Visit Type Treatment Note Visit Note KX after 19 visits Visit Start Time 07:31 Visit Stop Time 08:15 Visit Number 25 Evaluation Information Evaluation Date 01/21/24 Precautions Precautions osteopenia, possibly osteoporosis PT-OP-B Current Condition Start: 01/21/24 08:11 Freq: Status: Active Protocol: Document 01/21/24 10:30 NM (Rec: 01/21/24 13:02 NM [id number]) Current Condition History of Current Condition Onset Date 3-4 months worsening Current Complaints pain, mobility History of Current Condition Pt presents with R shoulder pain that has been progressively worsening. 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 She reports that the pain is debilitating. She performs yoga, pilates, weight training, dancing. Pt has pain with arm elevation, dressing, sleeping (usually sleeps on R side, propped on pillow which leads to less pain), eccentric lowering of arm. She reports pain comes and goes. She has been seeing a chiropractor for pain without relief, every couple of weeks. At this time, not planning to have surgery. Denies neck pain, numbness/ tingling. Has crepitus in shoulder; no reports of locking/stuck. No pain at rest PT-OP-C Subjective Start: 01/21/24 08:11 Freq: Status: Active Protocol: Document 05/25/24 07:26 NM (Rec: 05/25/24 08:20 NM [id number]) OP-PT Subjective Patient Comments Patient Comments Pt reports no shoulder pain today but was sore after last session. She took a day of rest. Pt continues to do her functional fitness yesterday. She is planning to discharge today from PT. She has a new referral for PT again prior to surgery in August. PT-OP-E Functional Tests Start: 01/21/24 08:11 Freq: Status: Active Protocol: Document 01/21/24 10:30 NM (Rec: 01/21/24 13:02 NM [id number]) Functional Tests Apley's Scratch Test Action 1- Left post scapular Action 1- Right to AC joint, pain Action 2- Left T4 Action 2- Right to occiput base, T2 with head flexion, pain Action 3- Left T4 Action 3- Right T12, pain PT-OP-F Manual Assessment Start: 01/21/24 08:11 Freq: Status: Active Protocol: Document 01/21/24 10:30 NM (Rec: 01/21/24 13:02 NM [id number]) Manual Assessments Soft Tissue Assessment Soft Tissue Mobility Assessment Atrophy of R paraspinals, upper trapezius compared to LUE. Joint Mobility Assessment Joint Mobility Assessment Decreased passive and active AROM of R shoulder, empty end feel. Anterior humeral position. Worse with abduction , IR, ER. Decreased AC joint space. 1st rib does not appear elevated with CRLF test PT-OP-H Neuro Start: 01/21/24 08:11 Freq: Status: Active Protocol: Document 01/21/24 10:30 NM (Rec: 01/21/24 13:02 NM [id number]) Sensation Evaluation Comments Summary Comments BUE intact to light touch sensation bilaterally PT-OP-J Posture/Palpation/Skin Start: 01/21/24 08:11 Freq: Status: Active Protocol: Document 01/21/24 10:30 NM (Rec: 01/21/24 13:02 NM [id number]) Posture Evaluation Position Standing Head/C-Spine Posture Forward Head T-Spine Posture Rotation Left,Increased Kyphosis Shoulder Posture (L) Rounded,(R) Rounded,(L) Forward,(R) Forward Comments Posture Comments R shoulder slightly elevated, possible R thoracic curve, protraction Palpation Assessment Location R shoulder Palpation Findings Soft Tissue Tightness, Tenderness Palpation Details tenderness at posterior cuff origin and insertion. Tightness at R lat No tenderness at LH biceps PT-OP-K Range of Motion Start: 01/21/24 08:11 Freq: Status: Active Protocol: Document 05/25/24 07:26 NM (Rec: 05/25/24 08:20 NM [id number]) Shoulder Goniometric Range of Motion Shoulder Right AROM Flexion 130 Abduction 130 External Rotation at 0 degrees Abduction 45 Internal Rotation Behind Back (text) T8 Comments IE: 110 deg flex, 70 deg abd, 35 deg ER at 0 deg, 65 deg IR; All motions painful 4/22/24: 130 flex and abduction, min pain with abduction 03/17/24: (premanual) 127 deg flex, 130 deg abd before scaption, 40 deg ER 04/09/24: 130 flex, 135 abd in scaption, T1 ER apley, T10 IR apley 05/11/24: 130 deg flex, 140 deg scaption, T3 ER apley, T9 IR apley 05/25/24: 130 deg flex and scaption, T4 apley, T8 apley IR PT-OP-L Special Tests Start: 01/21/24 08:11 Freq: Status: Active Protocol: Document 01/21/24 10:30 NM (Rec: 01/21/24 13:02 NM [id number]) Special Tests Cervical Spine Special Tests Traction Test Results - Spurling's Test Test Results - Shoulder Special Tests Empty Can Test Results + Comments ER worse than IR External Rotation Lag Sign Test Results + Drop Arm Rotator Cuff Test Results - Elevation Impingement Test Results + PT-OP-M Strength Start: 01/21/24 08:11 Freq: Status: Active Protocol: Document 05/25/24 07:26 NM (Rec: 05/25/24 08:20 NM [id number]) Shoulder Strength Shoulder Manual Muscle Testing Right Flexion 4+ Good+ Abduction (C5) 4+ Good+ External Rotation 4 Good Internal Rotation 4+ Good+ Comments IE: 3+/5 for all; pain with ER , abd 02/16/24: 4-/5 today 03/17/24: 4-/5 today for IR and ABD (min pain with resistance ), 4/5 for ER and flex 04/09/24: 4/5 05/25/24, 05/11/24: 4/5 ER, 4+/5 flex,abd, IR without pain PT-OP-Q Treatments Start: 01/21/24 08:11 Freq: Status: Active Protocol: Document 05/25/24 07:26 NM (Rec: 05/25/24 08:20 NM [id number]) Therapeutic Exercises Supine Exercises mini band Supine Exercise Name shoulder flexion with ER Side bilateral Resistance level 1 band Reps/Minutes 10 Comments pain free but challenging R shoulder AAROM Supine Exercise Name flexion, abduction, ER Side right Equipment Used L assist R, dowel Reps/Minutes 10 ea Prone Exercises I Prone Exercise Name 65 cm ball Side bilateral Resistance 1# db Reps/Minutes 10 row Prone Exercise Name 65 cm ball Side bilateral Resistance 1# db Reps/Minutes 10 T with elbow bent Prone Exercise Name 65 cm ball Side bilateral Resistance 1# db Reps/Minutes 10 Comments elbow bent Sitting Exercises inferior glide Side right Equipment Used L assist R Reps/Minutes 10x1 Comments with mobilization Standing Exercises shoulder ER Standing Exercise Name W Side bilateral Resistance 1# db Equipment Used tall kneel Reps/Minutes 10 RTC TB Standing Exercise Name ER and IR Side bilateral Resistance level 1 band Equipment Used walkout Reps/Minutes 15 ea Comments towel for form Other Exercises plank Other Exercise Name straight arm w/ shoulder taps Reps/Minutes 2x10 Comments improved form self soft tissue mobilization Other Exercise Name lat, subscapularis, rotator cuff Side left Reps/Minutes 2 minutes Comments educated for self soft tissue mobilization as part of HEP PT-OP-T Assessment and Plan Start: 01/21/24 08:11 Freq: Status: Active Protocol: Document 05/25/24 07:26 NM (Rec: 05/25/24 08:20 NM [id number]) Physical Therapy Assessment Goals Six Impairment HEP Short Term Goal (STG) Pt will report compliance with HEP at least 2-3x/wk in order to maximize progression with PT 02/16/24: states doing every day STG Duration 6 weeks MET Covered Buckle Assembler Goal (LTG) Pt will report compliance with HEP at least 3x/wk in order to transition into maintenance program upon discharge from PT 03/17/24: performing HEP every other day LTG Duration 12 weeks MET Five Impairment strength Impairment R shoulder abduction/ER/ flexion/IR 3+/5 MMT Short Term Goal (STG) Pt will increase R shoulder abduction/flexion/ER/IR strength to at least 4-/5 MMT in order to demonstrate improved shoulder strength during lifting, ADLs 02/16/24: 4-/5 for all, less pain but continues to have pain with abduction 03/17/24: 4/5 for flex and ER, pain free; 4-/5 for IR and abd (min pain with IR) STG Duration 6 weeks MET, PROGRESSING Covered Buckle Assembler Goal (LTG) Pt will increase R shoulder abduction/flexion/ER/IR strength to at least 4+/5 MMT in order to demonstrate improved shoulder strength during lifting, ADLs 03/17/24: 4/5 for flex and ER, pain free; 4-/5 for IR and abd (min pain with IR) 04/09/24: 4/5 without pain - GOAL MET, updated 04/09 to 4+/5 05/25/24, 05/11/24: 4/5 ER, 4+/5 flex,abd, IR without pain LTG Duration 12 weeks MET; goal updated - PROGRESSING Four Impairment AROM Impairment R shoulder abduction 70 deg, R shoulder flexion 110 deg Short Term Goal (STG) Pt will improve R shoulder abduction AROM to at least 90 deg and R shoulder flexion AROM to at least 120 deg in order to demonstrate increased ability to reach overhead during ADLs/IADLs 02/16/24: 130 deg flexion w/o pain, 140 deg with scaption, 130 deg abduction STG Duration 6 weeks MET Correction Goal (LTG) Pt will improve R shoulder abduction AROM and R shoulder flexion AROM to at least 135 deg in order to demonstrate increased ability to reach overhead during ADLs/IADLs 02/16/24: 130 deg flexion w/o pain, 140 deg with scaption, 130 deg abduction; demos slight upper trapezius compensation with all 04/09/24: 130 flex, 135 abd in scaption, T1 ER apley, T10 IR apley 05/11/24: 140 deg scaption, 130 deg flexion 05/25/24: 130 deg flex and scaption, T4 apley, T8 apley IR LTG Duration 12 weeks PARTIALLY MET, PROGRESSING/UPDATED 04/09/24 Three Impairment AROM Impairment R shoulder Apley IR to T12 Short Term Goal (STG) Pt will improve R shoulder Apley IR to at least T10 in order to demonstrate improved R shoulder AROM for dressing 02/16/24: T11, painful 04/09/24 T10, painfree STG Duration 6 weeks NOT MET Correction Goal (LTG) Pt will improve R shoulder Apley IR to at least T8 in order to demonstrate improved R shoulder AROM for dressing 04/09/24: T10 IR apley 05/11/24: T9 05/25/24: T8 apley IR LTG Duration 12 weeks MET Two Impairment AROM Impairment R shoulder Apley ER to occiput Short Term Goal (STG) Pt will improve R shoulder apley ER test to at least T2 without compensation in order to demonstrate improved AROM for grooming and dressing 02/16/24: C7, painful STG Duration 6 weeks NOT MET Covered Buckle Assembler Goal (LTG) Pt will improve R shoulder apley ER test to at least T4 without compensation in order to demonstrate improved AROM for grooming and dressing 04/09/24: T1 ER apley 05/11/24: T3 05/25/24: T4 apley LTG Duration 12 weeks MET One Impairment quickdash Impairment score 37, 59% Short Term Goal (STG) Pt will decrease quickdash score by at least 5% in order to demonstrate improvements in R shoulder pain management and QOL STG Duration 6 weeks Covered Buckle Assembler Goal (LTG) Pt will decrease quickdash score by at least 11% in order to demonstrate improvements in R shoulder pain management and QOL 05/11/24: 34% LTG Duration 12 weeks MET Assessment Summary Assessment Pt tolerated session well. Emphasis on creation of maintenance program. Educated regarding self soft tissue mobilization of lat, subscapularis, and rotator cuff insertions. Pt has mild tenderness following yesterday 's workout. Continued with AAROM/AROM for R shoulder mobility, in addition to rotator cuff and periscapular strengthening. Reviewed prone periscapular over ball, pt able to progress to 1#. Continues to have difficulty with prone T due to decreased scapular and abduction motion. PT and pt discussed discharge from PT today; both in agreement. Physical Therapy Plan Frequency and Duration Frequency of Treatment 1x/Week Duration of treatment (weeks) 8 Plan of Care Start Date 04/09/24 Plan of Care End Date 06/04/24 Therapeutic Interventions Therapeutic Interventions Aquatic Therapy,Coordination Training,Gait Training,Home Exercise Program,Joint Mobilizations,Manual Therapy, Neuromuscular Re-education, Orthotic/Prosthetic Management ,Patient/Caregiver Education, Self-Care/Home Management, Sensory Integration,Soft Tissue Mobilization,Taping, Therapeutic Activities, Therapeutic Exercises Modalities Cold Pack/Ice Massage,Electric Stimulation,Hot Packs, Ultrasound,Vasopneumatic Devices Discharge Physical Therapy Discharge Reasons Goals Met Next Visit Focus/Plan Next Visit Plan discharge from PT
== END 2024-05-31 13:40 | disposition home or self-care (01) ==
LOC: PHYS 07:30
PROVIDERS: Family Provider Family Medicine; PCP Family Medicine; Referring Provider Family Medicine; Visit Provider Family Medicine
DX: M25.519 Pain in unspecified shoulder (principal); G89.29 Other chronic pain
CPT/HCPCS: 97110; 97140; 97161; 97535

== ENCOUNTER 2024-08-26 08:15 | Outpatient (RCR) | payer MEDICARE, OTHER, SELFPAY ==
--- NOTE | 2024-08-16 17:35 | PT.OIE ---
Current Diagnoses Primary osteoarthritis, unspecified shoulder (08/16/24) Past Medical History (Last Updated 12/24/23 @ 16:45 by Malorie Mota DO) Anxiety Back pain (~2008) Chicken pox (~1963) Difficulty swallowing (~2006) Diverticulosis (~2018) Eczema Exposure to COVID-19 virus Glaucoma Hemorrhoid (~1980) History of UTI (~1975) Hypercalcemia Lumbar degenerative disc disease Measles Osteopenia (~2017) Painful menstrual periods Positive colorectal cancer screening using Cologuard test Right arm fracture (~2015) Rubella Sciatica Thumb pain (~2015) Tinnitus Vertigo Vision disorder White coat syndrome without hypertension (~1996) Past Surgical History (Last Reviewed 08/13/22 @ 07:50 by Guy Kenyon MD) Anesthesia History of appendectomy History of section (~1980) History of tonsillectomy and adenoidectomy Hx of colonoscopy with polypectomy (~07/2019) Visit Care Team Role Provider Type Other Providers Specialty: Address: Phone: Fax: Email: Malorie Mota DO Family Provider Physician Primary Care Provider Specialty: Medical Address: [address] [place] [address], [address], [place], [address] Email: [email or web address] Maximino Mack MD Attending Provider Non-Staff Referring Provider Specialty: Orthopedic Surgery Address: [address] [place] [address], [id number] Email: Physical Therapy Initial Evaluation PT-OP-A Visit Information Start: 08/02/24 08:48 Freq: Status: Active Protocol: Document 08/16/24 08:12 [facility] (Rec: 08/16/24 10:49 [facility] [id number]) Out-Patient Physical Therapy Visit Information Visit Information Visit Type Initial Evaluation Visit Note 11/05 Visit Start Time 08:15 Visit Stop Time 09:05 Visit Number 1 Number of STRADDLE CARRIER OPERATOR Visits 0 PT-OP-B Current Condition Start: 08/02/24 08:48 Freq: Status: Active Protocol: Document 08/16/24 08:12 [facility] (Rec: 08/16/24 10:49 [facility] [id number]) Current Condition History of Current Condition Onset Date early winter Current Complaints R shoulder pain History of Current Condition Pt has surgery scheduled 08/31 for reg TSA d/t R shoulder OA. Has tried PT in past w/o success. Has [facility] w/4 SIGIFREDO to/ from garage w/1 rail. She has supportive who will help w/activities. Treatment Goals Patient/Caregiver Goals Get back to yoga, pilates and dancing PT-OP-C Subjective Start: 08/02/24 08:48 Freq: Status: Active Protocol: Document 08/16/24 08:12 [facility] (Rec: 08/16/24 18:31 [facility] [id number]) Patient Questionnaires Quick Dash- Upper Extremity Quick Dash UE Score 54.5 PT-OP-K Range of Motion Start: 08/02/24 08:48 Freq: Status: Active Protocol: Document 08/16/24 08:12 [facility] (Rec: 08/16/24 10:49 [facility] [id number]) Shoulder Goniometric Range of Motion Shoulder Left Active Flexion 150 Extension 64 Abduction 160 External Rotation at 0 degrees Abduction 70 Internal Rotation Behind Back (text) T2 Right Passive Flexion 151 Abduction 82 External Rotation at 45 degrees 54 Abduction Internal Rotation 61 Right Active Flexion 92 Extension 60 Abduction 95 External Rotation at 0 degrees Abduction 34 Internal Rotation Behind Back (text) T9 Comments goes into scaption w/abd PT-OP-Q Treatments Start: 08/02/24 08:48 Freq: Status: Active Protocol: Document 08/16/24 08:12 [facility] (Rec: 08/16/24 10:49 [facility] [id number]) Therapeutic Activity Therapeutic Activity bed mobility Reps/Minutes 2 min Comments edu how to sit w/arm in sling avoiding pushing through RUE stairs Reps/Minutes 2 min Comments up stairs reciprocal w/L rail, down step to w/holding rail on R and sidestepping dressing Reps/Minutes 13 min Comments dressing and bathing- edu how to don/doff along w/practice of donning/doffing overhead shirt and zip up jacket; edu and practice how to wash arm pit and and clean underarm and hair Sleep position Reps/Minutes 6 min Comments edu of sleep position w/ practice propping w/use of wedge in bed and w/pillows for support PT-OP-T Assessment and Plan Start: 08/02/24 08:48 Freq: Status: Active Protocol: Document 08/16/24 08:12 [facility] (Rec: 08/16/24 10:49 [facility] [id number]) Physical Therapy Assessment Rehab Potential Rehabilitation Potential Good Evaluation Complexity Number of Personal Factors/Comorbidities 3 or More Number of Body Systems Impaired 4 or More Clinical Presentation at Evaluation Evolving Impairments Impairments Activity Tolerance,Functional Activities,Functional Mobility ,Pain,Posture,ROM,Soft Tissue Mobility,Strength Goals One Long-Term Goal (LTG) Pt will be indep w/safety for ADLs after shoulder surgery and exercises for ROM/mobility prior to surgery. LTG Duration 09/26/24 Assessment Summary Assessment Pt presents prior to scheduled R TSA 08/31/24 with goal of learning limitations prior to surgery along w/how to participate in ADLs after surgery along w/exercises to continue. She has tried prior PT w/o enough progress towards ADLs, so is currently pursuing surgery. She will resume PT after surgery once cleared by provider. Pt to start skilled PT prior to surgery for work on ROM, strength and ADL participation education for after surgery. Physical Therapy Plan Frequency and Duration Frequency of Treatment 2x/Week Duration of treatment (weeks) 6 Plan of Care Start Date 08/18/24 Plan of Care End Date 09/29/24 Therapeutic Interventions Therapeutic Interventions Coordination Training,Gait Training,Home Exercise Program ,Joint Mobilizations,Manual Therapy,Neuromuscular Re- education,Patient/Caregiver Education,Self-Care/Home Management,Soft Tissue Mobilization,Taping, Therapeutic Activities, Therapeutic Exercises Modalities Cold Pack/Ice Massage,Electric Stimulation,Hot Packs Next Visit Focus/Plan Next Note Type Treatment Note Next Visit Plan review old HEP, discuss what to continue, work on ADL indep prior to surgery
--- NOTE | 2024-08-16 17:36 | PT.OPPOC ---
Addendum entered and electronically signed by Anabela Oliver PT 08/18/24 16:15: POC faxed 2x this week Original Note: Physical, Occupational & Speech Therapy At Current Diagnoses Primary osteoarthritis, unspecified shoulder (08/16/24) Visit Care Team Role Provider Type Other Providers Specialty: Address: Phone: Fax: Email: Malorie Mota DO Family Provider Physician Primary Care Provider Specialty: Medical Address: [address] [place] [address], [address], [place], [address] Email: [email or web address] Maximino Mack MD Attending Provider Non-Staff Referring Provider Specialty: Orthopedic Surgery Address: [address] [place] [address], [id number] Email: Plan Of Care PT-OP-B Current Condition Start: 08/02/24 08:48 Freq: Status: Active Protocol: Document 08/16/24 08:12 [facility] (Rec: 08/16/24 10:49 [facility] [id number]) Current Condition History of Current Condition Onset Date early 2023 winter Current Complaints R shoulder pain History of Current Condition Pt has surgery scheduled 08/31 for reg TSA d/t R shoulder OA. Has tried PT in past w/o success. Has [facility] w/4 SIGIFREDO to/ from garage w/1 rail. She has supportive who will help w/activities. Treatment Goals Patient/Caregiver Goals Get back to yoga, pilates and dancing PT-OP-T Assessment and Plan Start: 08/02/24 08:48 Freq: Status: Active Protocol: Document 08/16/24 08:12 [facility] (Rec: 08/16/24 10:49 [facility] [id number]) Physical Therapy Assessment Rehab Potential Rehabilitation Potential Good Evaluation Complexity Number of Personal Factors/Comorbidities 3 or More Number of Body Systems Impaired 4 or More Clinical Presentation at Evaluation Evolving Impairments Impairments Activity Tolerance,Functional Activities,Functional Mobility ,Pain,Posture,ROM,Soft Tissue Mobility,Strength Goals One Software Quality Engineer Goal (LTG) Pt will be indep w/safety for ADLs after shoulder surgery and exercises for ROM/mobility prior to surgery. LTG Duration 09/26/24 Assessment Summary Assessment Pt presents prior to scheduled R TSA 08/31/24 with goal of learning limitations prior to surgery along w/how to participate in ADLs after surgery along w/exercises to continue. She has tried prior PT w/o enough progress towards ADLs, so is currently pursuing surgery. She will resume PT after surgery once cleared by provider. Pt to start skilled PT prior to surgery for work on ROM, strength and ADL participation education for after surgery. Physical Therapy Plan Frequency and Duration Frequency of Treatment 2x/Week Duration of treatment (weeks) 6 Plan of Care Start Date 08/18/24 Plan of Care End Date 09/29/24 Therapeutic Interventions Therapeutic Interventions Coordination Training,Gait Training,Home Exercise Program ,Joint Mobilizations,Manual Therapy,Neuromuscular Re- education,Patient/Caregiver Education,Self-Care/Home Management,Soft Tissue Mobilization,Taping, Therapeutic Activities, Therapeutic Exercises Modalities Cold Pack/Ice Massage,Electric Stimulation,Hot Packs Next Visit Focus/Plan Next Note Type Treatment Note Next Visit Plan review old HEP, discuss what to continue, work on ADL indep prior to surgery Plan of Care Dates Plan of Care Start Date 08/18/24 Plan of Care End Date 09/29/24 Electronically Signed by: Anabela Oliver, PT 08/18/24 0936 If you are in agreement with this Plan of Care, please return a signed and dated copy. I have reviewed this Plan of Care and certify that the skilled therapy services above are required to meet the patient?s needs. Physician Signature Date Printed Name and Credentials Clinical Instructor Signature Printed Name and Credentials
--- NOTE | 2024-08-18 09:36 | PT-OP ANOTE ---
message left w/central concierge receptionist asking for protocol and when pt can start PT after surgery
--- NOTE | 2024-08-19 09:49 | PT.OTN ---
Current Diagnoses Primary osteoarthritis, unspecified shoulder (08/19/24) Physical Therapy Treatment Note PT-OP-A Visit Information Start: 08/02/24 08:48 Freq: Status: Active Protocol: Document 08/19/24 08:19 [facility] (Rec: 08/19/24 09:47 [facility] [id number]) Out-Patient Physical Therapy Visit Information Visit Information Visit Type Treatment Note Visit Note 12/06 Visit Start Time 08:18 Visit Stop Time 09:03 Visit Number 2 Number of MARINA PORTER Visits 0 PT-OP-B Current Condition Start: 08/02/24 08:48 Freq: Status: Active Protocol: Document 08/16/24 08:12 [facility] (Rec: 08/16/24 10:49 [facility] [id number]) Current Condition History of Current Condition Onset Date early 2023 winter Current Complaints R shoulder pain History of Current Condition Pt has surgery scheduled 08/31 for reg TSA d/t R shoulder OA. Has tried PT in past w/o success. Has [facility] w/4 [employer] to/ from garage w/1 rail. She has supportive who will help w/activities. Treatment Goals Patient/Caregiver Goals Get back to yoga, pilates and dancing PT-OP-C Subjective Start: 08/02/24 08:48 Freq: Status: Active Protocol: Document 08/19/24 08:19 [facility] (Rec: 08/19/24 09:47 [facility] [id number]) OP-PT Subjective Patient Comments Patient Comments pt has some questions about dressing and daily activities PT-OP-K Range of Motion Start: 08/02/24 08:48 Freq: Status: Active Protocol: Document 08/16/24 08:12 [facility] (Rec: 08/16/24 10:49 [facility] [id number]) Shoulder Goniometric Range of Motion Shoulder Left Active Flexion 150 Extension 64 Abduction 160 External Rotation at 0 degrees Abduction 70 Internal Rotation Behind Back (text) T2 Right Passive Flexion 151 Abduction 82 External Rotation at 45 degrees 54 Abduction Internal Rotation 61 Right Active Flexion 92 Extension 60 Abduction 95 External Rotation at 0 degrees Abduction 34 Internal Rotation Behind Back (text) T9 Comments goes into scaption w/abd PT-OP-Q Treatments Start: 08/02/24 08:48 Freq: Status: Active Protocol: Document 08/19/24 08:19 [facility] (Rec: 08/19/24 09:47 [facility] [id number]) Therapeutic Exercises Supine Exercises AAROm Supine Exercise Name 1. flex 2. ER at side 3. ER at 45 deg Reps/Minutes 10 ea flex Supine Exercise Name AAROM Side right Reps/Minutes 10 Comments w/opp UE Sitting Exercises pully Sitting Exercise Name flex Side right Reps/Minutes 10 Standing Exercises Scaption Standing Exercise Name AAROM Side right Equipment Used bar Reps/Minutes 10 flex Standing Exercise Name walk away Side bilateral Reps/Minutes 8 Therapeutic Activity Therapeutic Activity eating Reps/Minutes 5 min Comments pretend knife and fork use, encouraged to cut w/LUE and keep arm in sling desk Reps/Minutes 3 min Comments edu on use of hand when in sling; encouraged use of dressing Reps/Minutes 10 min Comments dressing - edu how to don/doff along w/practice of donning/ doffing overhead shirt and zip up jacket review Self-Care/Home Management Treatment Education Other Education 8 min: review of referral information and PROM onlya t first and sling until doctor clears otherwise PT-OP-T Assessment and Plan Start: 08/02/24 08:48 Freq: Status: Active Protocol: Document 08/19/24 08:19 [facility] (Rec: 08/19/24 09:47 [facility] [id number]) Physical Therapy Assessment Goals One Impairment . Alf Goal (LTG) Pt will be indep w/safety for ADLs after shoulder surgery and exercises for ROM/mobility prior to surgery. LTG Duration 09/26/24 Assessment Summary Assessment REview of old exercises today and pt needed cues. Did well with education and verbalized understanding Physical Therapy Plan Frequency and Duration Frequency of Treatment 2x/Week Duration of treatment (weeks) 6 Plan of Care Start Date 08/18/24 Plan of Care End Date 09/29/24 Next Visit Focus/Plan Next Note Type Treatment Note Next Visit Plan review old HEP, discuss what to continue, work on ADL indep prior to surgery
--- NOTE | 2024-08-23 09:06 | PT.OTN ---
Current Diagnoses Primary osteoarthritis, unspecified shoulder (08/23/24) Physical Therapy Treatment Note PT-OP-A Visit Information Start: 08/02/24 08:48 Freq: Status: Active Protocol: Document 08/23/24 08:21 [facility] (Rec: 08/23/24 09:05 [facility] [id number]) Out-Patient Physical Therapy Visit Information Visit Information Visit Type Treatment Note Visit Note 01/03 Visit Start Time 08:18 Visit Number 3 Number of [employer]BER Visits 0 PT-OP-B Current Condition Start: 08/02/24 08:48 Freq: Status: Active Protocol: Document 08/16/24 08:12 [facility] (Rec: 08/16/24 10:49 [facility] [id number]) Current Condition History of Current Condition Onset Date early 2023 winter Current Complaints R shoulder pain History of Current Condition Pt has surgery scheduled 08/31 for reg TSA d/t R shoulder OA. Has tried PT in past w/o success. Has [facility] w/4 [employer] to/ from garage w/1 rail. She has supportive who will help w/activities. Treatment Goals Patient/Caregiver Goals Get back to yoga, pilates and dancing PT-OP-C Subjective Start: 08/02/24 08:48 Freq: Status: Active Protocol: Document 08/23/24 08:21 [facility] (Rec: 08/23/24 09:05 [facility] [id number]) OP-PT Subjective Patient Comments Patient Comments feels like can't do some of old hep PT-OP-K Range of Motion Start: 08/02/24 08:48 Freq: Status: Active Protocol: Document 08/16/24 08:12 [facility] (Rec: 08/16/24 10:49 [facility] [id number]) Shoulder Goniometric Range of Motion Shoulder Left Active Flexion 150 Extension 64 Abduction 160 External Rotation at 0 degrees Abduction 70 Internal Rotation Behind Back (text) T2 Right Passive Flexion 151 Abduction 82 External Rotation at 45 degrees 54 Abduction Internal Rotation 61 Right Active Flexion 92 Extension 60 Abduction 95 External Rotation at 0 degrees Abduction 34 Internal Rotation Behind Back (text) T9 Comments goes into scaption w/abd PT-OP-Q Treatments Start: 08/02/24 08:48 Freq: Status: Active Protocol: Document 08/23/24 08:21 [facility] (Rec: 08/23/24 09:05 [facility] [id number]) Therapeutic Exercises Prone Exercises row Side bilateral Equipment Used over ball Reps/Minutes 10 habd Prone Exercise Name bent elbwo Side bilateral Equipment Used ball Reps/Minutes 8 Comments stopped d/t pain ext Side bilateral Reps/Minutes 12 Comments cues scap Standing Exercises IR/ER Standing Exercise Name isometric reactive Side bilateral Equipment Used orange band Reps/Minutes 10 ea Comments max cues plank Standing Exercise Name alt UE lift Side bilateral Reps/Minutes 10 ea Comments cues neutral Therapeutic Activity Therapeutic Activity sitting Reps/Minutes 6 min Comments sitting use of pillow prop w/ work on knitting and discussed reading Sleep position Reps/Minutes 6 in Comments Discussed pillow use and how need to keep neck supported Manual Therapy Treatment Joint Mobilizations thoracic Comments transverse L T2-3 Self-Care/Home Management Treatment Education Other Education 8 min:discussion of expection after surgery and use of pillows to prop and review what PROM vs AROM is PT-OP-T Assessment and Plan Start: 08/02/24 08:48 Freq: Status: Active Protocol: Document 08/23/24 08:21 [facility] (Rec: 08/23/24 09:05 [facility] [id number]) Physical Therapy Assessment Goals One Impairment . Correction Goal (LTG) Pt will be indep w/safety for ADLs after shoulder surgery and exercises for ROM/mobility prior to surgery. LTG Duration 09/26/24 Assessment Summary Assessment Pt did well with exercises w/ min cues. had to stop some of old HEP d/t now causing pain. Physical Therapy Plan Frequency and Duration Frequency of Treatment 2x/Week Duration of treatment (weeks) 6 Plan of Care Start Date 08/18/24 Plan of Care End Date 09/29/24 Next Visit Focus/Plan Next Note Type Treatment Note Next Visit Plan manual to thoracic and ribcage , discuss what to continue, work on ADL indep prior to surgery as needed
--- NOTE | 2024-08-26 12:54 | PT.OTN ---
Current Diagnoses Primary osteoarthritis, unspecified shoulder (08/26/24) Physical Therapy Treatment Note PT-OP-A Visit Information Start: 08/02/24 08:48 Freq: Status: Active Protocol: Document 08/26/24 08:07 [facility] (Rec: 08/26/24 12:53 [facility] [id number]) Out-Patient Physical Therapy Visit Information Visit Information Visit Type Treatment Note Visit Note 02/03 Visit Start Time 08:16 Visit Stop Time 09:00 Visit Number 4 Number of TEACHING SUPERVISOR Visits 1 PT-OP-B Current Condition Start: 08/02/24 08:48 Freq: Status: Active Protocol: Document 08/16/24 08:12 [facility] (Rec: 08/16/24 10:49 [facility] [id number]) Current Condition History of Current Condition Onset Date early 2023 winter Current Complaints R shoulder pain History of Current Condition Pt has surgery scheduled 08/31 for reg TSA d/t R shoulder OA. Has tried PT in past w/o success. Has [facility] w/4 [place] to/ from garage w/1 rail. She has supportive who will help w/activities. Treatment Goals Patient/Caregiver Goals Get back to yoga, pilates and dancing PT-OP-C Subjective Start: 08/02/24 08:48 Freq: Status: Active Protocol: Document 08/26/24 08:07 [facility] (Rec: 08/26/24 12:53 [id number]) OP-PT Subjective Patient Comments Patient Comments Patient reports she is doing 3 of her exercises. AROM R shoulder flexion 103 deg start of session. Patient rates pain greater than 5/10 right shoulder start of session. PT-OP-K Range of Motion Start: 08/02/24 08:48 Freq: Status: Active Protocol: Document 08/16/24 08:12 [facility] (Rec: 08/16/24 10:49 [facility] [id number]) Shoulder Goniometric Range of Motion Shoulder Left Active Flexion 150 Extension 64 Abduction 160 External Rotation at 0 degrees Abduction 70 Internal Rotation Behind Back (text) T2 Right Passive Flexion 151 Abduction 82 External Rotation at 45 degrees 54 Abduction Internal Rotation 61 Right Active Flexion 92 Extension 60 Abduction 95 External Rotation at 0 degrees Abduction 34 Internal Rotation Behind Back (text) T9 Comments goes into scaption w/abd PT-OP-Q Treatments Start: 08/02/24 08:48 Freq: Status: Active Protocol: Document 08/26/24 08:07 [facility] (Rec: 08/26/24 12:53 [facility] [id number]) Therapeutic Exercises Supine Exercises AAROm Supine Exercise Name 1. flex 2. ER at side 3. ER at 45 deg Reps/Minutes 15 ea Comments active to AA Sidelying Exercises open book Sidelying Exercise Name Return to HEP prior to surgery only Side bilateral Reps/Minutes X6 each side Comments verbal cues Standing Exercises IR/ER Standing Exercise Name isometric reactive Side bilateral Equipment Used orange band Reps/Minutes 10 ea Comments max cues Other Exercises wall squat with ball Other Exercise Name for set up tech how to have spouse assist post surgery Manual Therapy Treatment Consent Patient gave verbal consent for manual Yes treatment Soft Tissue Mobilization Thoracic and ribs right Body Location paraspinals and intercostals Mobilization Type Cross-Friction,Sustained Pressure Intensity/Depth Moderate Body Position Sidelying right shoulder Body Location pec, UT, levator scap, post cuff, rhomboid Mobilization Type Cross-Friction,Rolling, Sustained Pressure Intensity/Depth Moderate Body Position Hooklying Comments and sidelying Joint Mobilizations scapular mobilzion Joint right Direction into depression and adduction Grade IV Body Position Sidelying Reps/Duration X10 each PT-OP-T Assessment and Plan Start: 08/02/24 08:48 Freq: Status: Active Protocol: Document 08/26/24 08:07 (Rec: 08/26/24 12:53 [id number]) Physical Therapy Assessment Goals One Impairment . Radiochemical Technician Goal (LTG) Pt will be indep w/safety for ADLs after shoulder surgery and exercises for ROM/mobility prior to surgery. LTG Duration 09/26/24 Assessment Summary Assessment AROM right shoulder 107 deg with pain lowering end of session. Patient rates pain 0/ 10 end of session right shoulder, comments something is released. Physical Therapy Plan Frequency and Duration Frequency of Treatment 2x/Week Duration of treatment (weeks) 6 Plan of Care Start Date 08/18/24 Plan of Care End Date 09/29/24 Next Visit Focus/Plan Next Note Type Treatment Note Next Visit Plan manual to thoracic and ribcage , discuss what to continue, work on ADL indep prior to surgery as needed
--- NOTE | 2024-10-06 07:46 | PT.OPDS ---
Current Diagnoses Primary osteoarthritis, unspecified shoulder (08/26/24) Visit Care Team Role Provider Type Other Providers Specialty: Address: Phone: Fax: Email: Malorie Mota DO Family Provider Physician Primary Care Provider Specialty: Medical Address: [address] [place] [address], [address], [place], [address] Email: [email or web address] Maximino Mack MD Attending Provider Non-Staff Referring Provider Specialty: Orthopedic Surgery Address: [address] [place] [address], [place], [address] Email: Visit Number Visit Number 4 Discharge Summary PT-OP-B Current Condition Start: 08/02/24 08:48 Freq: Status: Active Protocol: Document 08/16/24 08:12 [facility] (Rec: 08/16/24 10:49 [facility] [id number]) Current Condition History of Current Condition Onset Date early 2023 winter Current Complaints R shoulder pain History of Current Condition Pt has surgery scheduled 08/31 for reg TSA d/t R shoulder OA. Has tried PT in past w/o success. Has [facility] w/4 [place] to/ from garage w/1 rail. She has supportive who will help w/activities. Treatment Goals Patient/Caregiver Goals Get back to yoga, pilates and dancing PT-OP-C Subjective Start: 08/02/24 08:48 Freq: Status: Active Protocol: Document 08/26/24 08:07 [facility] (Rec: 08/26/24 12:53 [id number]) OP-PT Subjective Patient Comments Patient Comments Patient reports she is doing 3 of her exercises. AROM R shoulder flexion 103 deg start of session. Patient rates pain greater than 5/10 right shoulder start of session. PT-OP-K Range of Motion Start: 08/02/24 08:48 Freq: Status: Active Protocol: Document 08/16/24 08:12 [facility] (Rec: 08/16/24 10:49 [facility] [id number]) Shoulder Goniometric Range of Motion Shoulder Left Active Flexion 150 Extension 64 Abduction 160 External Rotation at 0 degrees Abduction 70 Internal Rotation Behind Back (text) T2 Right Passive Flexion 151 Abduction 82 External Rotation at 45 degrees 54 Abduction Internal Rotation 61 Right Active Flexion 92 Extension 60 Abduction 95 External Rotation at 0 degrees Abduction 34 Internal Rotation Behind Back (text) T9 Comments goes into scaption w/abd PT-OP-T Assessment and Plan Start: 08/02/24 08:48 Freq: Status: Active Protocol: Document 10/06/24 07:43 [facility] (Rec: 10/06/24 07:46 [facility] [id number]) Physical Therapy Assessment Goals One Impairment . General Production Manager Goal (LTG) Pt will be indep w/safety for ADLs after shoulder surgery and exercises for ROM/mobility prior to surgery. LTG Duration achieved Assessment Summary Assessment Pt called to cancel all appointment, surgery being postponed. She did well with pre op edu adn is awaiting BP to drop. Physical Therapy Plan Discharge Physical Therapy Discharge Reasons No Longer Attending PT
== END 2024-10-13 15:19 | disposition home or self-care (01) ==
LOC: PHYS 08:15
PROVIDERS: Family Provider Family Medicine; PCP Family Medicine; Referring Provider Orthopaedic Surgery; Visit Provider Orthopaedic Surgery
DX: M19.019 Primary osteoarthritis, unspecified shoulder (principal)
CPT/HCPCS: 97110; 97140; 97162; 97530; 97535

== ENCOUNTER → 2024-11-16 17:29 | Outpatient (CLI) | payer MEDICARE, OTHER, SELFPAY | PROVIDERS: Family Provider Family Medicine; PCP Family Medicine; Visit Provider Physician Assistant | DX: K57.92 Diverticulitis of intestine, part unspecified, without perforation or abscess without bleeding (principal) | CPT/HCPCS: 87086 ==

== ENCOUNTER → 2024-11-19 09:55 | Outpatient (CLI) | payer MEDICARE, OTHER, SELFPAY ==
[2024-11-19 10:47] LABS: Appearance Urine UA CLEAR; Bilirubin Urine UA NEGATIVE (NEGATIVE); Color Urine UA YELLOW; Glucose Urine UA NEGATIVE (Negative); Ketones Urine UA NEGATIVE (NEGATIVE); Leukocyte Esterase Urine UA NEGATIVE (NEGATIVE); Nitrite Urine UA NEGATIVE (Negative); Occult Blood Urine UA NEGATIVE (Negative); Protein Urine UA NEGATIVE (Negative); Specific Gravity Urine UA <=1.005 (1.000-1.035); Urobilinogen Urine UA 0.2 E.U./dL (0.2)
[2024-11-19 10:49] LABS: Urine Volume 10mL (spun); pH Urine UA 6.5 (4.5-8.0)
[2024-11-19 10:50] LABS: Bacteria Urine None Seen; Culture Indicated Urine Cult Not Indicated; RBC Urine None Seen (0-5/HPF); Squamous Epithelial Cell Urine None Seen (0-5/HPF); WBC Urine None Seen (0-5/HPF)
== END ==
PROVIDERS: Family Provider Family Medicine; PCP Family Medicine; Referring Provider Family Medicine; Visit Provider Family Medicine
DX: K57.92 Diverticulitis of intestine, part unspecified, without perforation or abscess without bleeding (principal); R10.9 Unspecified abdominal pain
CPT/HCPCS: 81001

== ENCOUNTER → 2024-12-01 16:48 | Outpatient (CLI) | payer MEDICARE, OTHER, SELFPAY ==
[2024-12-01 18:39] LABS: Vitamin D 25 Hydroxy (D3) 51.3 ng/mL (30.0-100.0)
== END ==
LOC: LAB 16:49
PROVIDERS: Family Provider Family Medicine; PCP Family Medicine; Referring Provider Family Medicine; Visit Provider Family Medicine
DX: E55.9 Vitamin D deficiency, unspecified (principal); M81.0 Age-related osteoporosis without current pathological fracture
CPT/HCPCS: 36415; 82306

== ENCOUNTER → 2025-04-25 09:52 | Outpatient (CLI) | payer MEDICARE, OTHER, SELFPAY ==
[2025-04-25 10:41] LABS: Alanine Aminotransferase 22 IU/L (<35); Albumin 4.5 g/dL (3.5-5.0); Albumin Globulin Ratio 1.5 (1.0-2.8); Alkaline Phosphatase 109 U/L (38-126); Aspartate Aminotransferase 33 IU/L (14-36); BUN Creatinine Ratio 20.9 (6-22); Bilirubin Total 0.6 mg/dL (0.2-1.3); Blood Urea Nitrogen 18 mg/dL (7-17); Calcium 10.2 mg/dL (8.4-10.2); Carbon Dioxide 25 mmol/L (22-32); Chloride 101 mmol/L (98-107); Estimated Glomerular Filt Rate > 60 mL/min (>60); Globulin 3.1 g/dL (1.7-4.1); Glucose 100 mg/dL (70-99); HEMOLYSIS < 15 (0-50); Potassium 4.3 mmol/L (3.4-5.1); Sodium 135 mmol/L (137-145); Total Protein 7.6 g/dL (6.3-8.2)
[2025-04-25 15:12] LABS: Creatinine Urine Random 31.44 mg/dL; Protein (Total) Urine Random 11 mg/dL (0-12); Protein Creatinine Ratio Urine 0.34 GRAM/24H
== END ==
PROVIDERS: PCP Family Medicine; Referring Provider Family Medicine; Visit Provider Family Medicine
DX: I10 Essential (primary) hypertension (principal); M19.011 Primary osteoarthritis, right shoulder; B35.1 Tinea unguium
CPT/HCPCS: 36415; 80053; 82570; 84156

== ENCOUNTER → 2025-10-26 15:45 | Outpatient (CLI) | payer MEDICARE, OTHER, SELFPAY ==
[2025-10-26 18:55] LABS: Add Manual Diff / Slide Review NO; Hematocrit 37.1 % (36-46); Hemoglobin 12.5 g/dL (12.0-16.0); Lymphocytes Absolute Auto 2000 /uL (1100-4500); Mean Corpuscular HGB Conc 33.6 % (30-36); Mean Corpuscular Hemoglobin 28.5 PG (26-34); Mean Corpuscular Volume 84.7 fL (80-100); Platelet Count 250 X10^3/uL (150-400)
[2025-10-26 19:21] LABS: INR 1.1 (0.9-1.3); Prothrombin Time 12.0 SECONDS (9.4-12.5)
[2025-10-26 19:51] LABS: Alanine Aminotransferase 31 IU/L (<35); Albumin 4.6 g/dL (3.5-5.0); Albumin Globulin Ratio 1.6 (1.0-2.8); Alkaline Phosphatase 106 U/L (38-126); Blood Urea Nitrogen 17 mg/dL (7-17); Calcium 10.3 mg/dL (8.4-10.2); Carbon Dioxide 21 mmol/L (22-32); Chloride 98 mmol/L (98-107); Estimated Glomerular Filt Rate > 60 mL/min (>60); Globulin 2.9 g/dL (1.7-4.1); Glucose 88 mg/dL (70-99); HEMOLYSIS < 15 (0-50); Potassium 4.3 mmol/L (3.4-5.1); Sodium 132 mmol/L (137-145); Total Protein 7.5 g/dL (6.3-8.2)
== END ==
PROVIDERS: Family Medicine; Family Provider Family Medicine; PCP Family Medicine; Referring Provider Orthopaedic Surgery; Visit Provider Orthopaedic Surgery
DX: Z01.818 Encounter for other preprocedural examination (principal); R79.1 Abnormal coagulation profile; M19.011 Primary osteoarthritis, right shoulder
CPT/HCPCS: 80053; 85025; 85610